=== PATIENT | female | born 1945 | race Caucasian/White ===

== ENCOUNTER → 2016-11-02 | Outpatient (CLI) | payer MEDICARE, BC ==
--- NOTE | 2016-11-02 09:53 | US ---
EXAMINATION TYPE: US st tissue head/neck DATE OF EXAM: 11/02/2016 7:39 AM COMPARISON: NONE CLINICAL HISTORY: R22.0 swelling mass/head/neck. Pt states feeling 2 palpable lumps left posterior ba se of skull x 1 month/ pt states recent history of shingles on scalp At 1st palp at base of skull shows probable lymph node= 0.7 x 0.3 x 0.7 cm/ Nothing visualized at 2 nd palp at base of skull Oval well-circumscribed hypoechoic lesion at level of first palpable abnormality favors benign lymph node. Second site of palpable abnormality shows no worrisome solid or cystic mass or fluid collection on images saved. IMPRESSION: As above, most likely benign process.
== END | disposition home or self-care (01) ==
LOC: RADUSWWP 07:28
PROVIDERS: ATTEND Internal Medicine
DX: R22.1 Localized swelling, mass and lump, neck (principal); Z91.048 Other nonmedicinal substance allergy status; Z91.013 Allergy to seafood
CPT/HCPCS: 76536

== ENCOUNTER → 2016-11-29 | Outpatient (CLI) | payer MEDICARE, BC ==
--- NOTE | 2016-11-29 17:15 | BD ---
EXAMINATION TYPE: MG DEXA axial skeleton. DATE OF EXAM: 11/29/2016 COMPARISON: 2014 CLINICAL HISTORY: post menopausal Height: 5'3 Weight: 139 FRAX RISK QUESTIONS: Alcohol (3 or more units per day): no Family History (Parent hip fracture): no Glucocorticoids (More than 3mos): no (Ex: prednisone, prednisolone, methylprednisolone, dexamethasone, and hydrocortisone). History of Fracture in Adulthood: no Secondary Osteoporosis: 1. Type 1 Diabetes: no 2. Hyperthyroidism: no 3. Menopause before 45: no 4. Malnutrition: no 5. Chronic liver disease: no Rheumatoid Arthritis: no Current Tobacco Use: no RISK FACTORS HISTORY OF: Surgery to Spine/ When: 2014 Postmenopausal woman: MEDICATIONS: Additional Medications: Prilosec, Motrin 600, neuro tin, baby aspirin, allergies, Additional History: thyroidd 3/4 thyroidectomy, hyperactive no cancer EXAM MEASUREMENTS: Bone mineral densitometry was performed using the [employer] System. Bone mineral density about the R hip (g/cm2): 1.061 Bone mineral density about the L hip (g/cm2): 0.982 T Score values are as follows: -----R Neck: 0.2 -----L Neck: -0.4 -----R Total: 0.3 -----L Total: 0.7 Bone mineral density has: Increased 1.0% since study of: 08/26/2014 IMPRESSION: Normal (Values between +1 and -1 indicate normal bone mass). Consider repeating this study in 5 year s or sooner if there is some new clinical indication. Bone density has improved 1% within the bilateral hips from 2014. NOTE: T-SCORE=SD OF THE YOUNG ADULT MEAN.
--- NOTE | 2016-11-30 11:43 | MM ---
Reason for exam: screening (asymptomatic). Last mammogram was performed 1 year and 1 month ago. History: Patient is postmenopausal and history of other cancer. Family history of breast cancer in paternal cousin at age 50. Benign stereotactic core biopsy of the right breast, August 25, 2003. Cyst aspiration of the left breast. Cyst aspiration of the right breast. Core biopsy of the right breast. Excisional biopsy of the left breast. Taking estrogen for 28 years beginning at age 42. Physical Findings: A clinical breast exam by your physician is recommended on an annual basis and results should be correlated with mammographic findings. MG 3D Screening Mammo W/Cad Bilateral CC and MLO view(s) were taken. Prior study comparison: October 23, 2015, bilateral MG 3d screening mammo w/cad. August 26, 2014, bilateral MG screening mammo w CAD. May 20, 2013, bilateral digital screening mammo w/CAD. The breast tissue is heterogeneously dense. This may lower the sensitivity of mammography. Finding: There are vascular, round calcifications in both breasts. Previous mammotome biopsy in the right breast. There is no discrete abnormality. ASSESSMENT: Benign, BI-RAD 2 RECOMMENDATION: Routine screening mammogram of both breasts in 1 year.
== END | disposition home or self-care (01) ==
LOC: RADMAMWWP 08:39
PROVIDERS: ATTEND Obstetrics & Gynecology
DX: Z12.31 Encounter for screening mammogram for malignant neoplasm of breast (principal); N95.1 Menopausal and female climacteric states
CPT/HCPCS: 77080; 77063; G0202

== ENCOUNTER → 2017-03-21 | Outpatient (CLI) | payer MEDICARE, BC | END | disposition home or self-care (01) | LOC: LABWHC1 09:05 | PROVIDERS: ATTEND Internal Medicine | DX: E03.9 Hypothyroidism, unspecified (principal); E55.9 Vitamin D deficiency, unspecified | CPT/HCPCS: 36415; 82306; 82746; 84439; 84443 ==

== ENCOUNTER → 2017-06-05 | Outpatient (CLI) | payer MEDICARE, BC ==
[2017-06-05 09:26] LABS: Basophils % (A) 0 %; CH 33.5; CHCM 31.9; Eosinophils # (A) 0.2 k/uL (0-0.7); Eosinophils % (A) 3 %; HGB 12.5 gm/dL (11.4-16.0); Luc # (Auto) 0.08; Luc % (Auto) 2; Lymphocytes # (A) 0.9 k/uL (1.0-4.8); Lymphocytes % (A) 18 %; MCHC 31.3 g/dL (31.0-37.0); MCV 105.4 fL (80.0-100.0); Macrocytosis Moderate; Monocytes # (A) 0.4 k/uL (0-1.0); Monocytes % (A) 7 %; Neutrophils # (A) 3.6 k/uL (1.3-7.7); Neutrophils % (A) 69 %; RBC 3.79 m/uL (3.80-5.40); RDW 13.9 % (11.5-15.5); WBC 5.2 k/uL (3.8-10.6)
[2017-06-05 09:47] LABS: ALT 44 U/L (9-52); AST 29 U/L (14-36); Alkaline Phosphatase 42 U/L (38-126); Anion Gap 6 mmol/L; Blood Urea Nitrogen 21 mg/dL (7-17); C Reactive Protein <5.0 mg/L (<10.0); Calcium 9.3 mg/dL (8.4-10.2); Carbon Dioxide 28 mmol/L (22-30); Chloride 108 mmol/L (98-107); Cholesterol 196 mg/dL (<200); Creatine Kinase 158 U/L (30-135); Glucose 100 mg/dL (74-99); HDL Cholesterol 85 mg/dL (40-60); Non-African American GFR(MDRD) >60 (>60 ml/min/1.73 sqM); Potassium 4.6 mmol/L (3.5-5.1); Sodium 142 mmol/L (137-145); Total Bilirubin 0.2 mg/dL (0.2-1.3); Total Protein 6.6 g/dL (6.3-8.2); Uric Acid 5.4 mg/dL (3.7-7.4)
[2017-06-05 10:52] LABS: Erythrocyte Sedimentation Rate 20 mm/hr (0-20)
[2017-06-05 17:49] LABS: ANA w/Reflex to Titer NEGATIVE (NEGATIVE)
== END | disposition home or self-care (01) ==
LOC: LABWHC1 09:06
PROVIDERS: ATTEND Internal Medicine
DX: Z00.00 Encounter for general adult medical examination without abnormal findings (principal); E78.5 Hyperlipidemia, unspecified; J44.9 Chronic obstructive pulmonary disease, unspecified; M81.0 Age-related osteoporosis without current pathological fracture; E55.9 Vitamin D deficiency, unspecified; M06.4 Inflammatory polyarthropathy; J45.909 Unspecified asthma, uncomplicated
CPT/HCPCS: 36415; 80053; 80061; 82306; 82550; 83735; 84550; 85025; 85652; 86038; 86140; 86225

== ENCOUNTER → 2017-08-09 | Outpatient (CLI) | payer MEDICARE, BC ==
[2017-08-09 12:41] LABS: Anion Gap 12 mmol/L; Blood Urea Nitrogen 17 mg/dL (7-17); Calcium 10.4 mg/dL (8.4-10.2); Carbon Dioxide 27 mmol/L (22-30); Chloride 101 mmol/L (98-107); Glucose 96 mg/dL (74-99); Magnesium 1.9 mg/dL (1.6-2.3); Potassium 4.3 mmol/L (3.5-5.1); Sodium 140 mmol/L (137-145)
[2017-08-09 19:00] LABS: Progesterone <0.2 ng/mL
== END | disposition home or self-care (01) ==
LOC: LABWHC1 11:42
PROVIDERS: ATTEND Internal Medicine
DX: E87.8 Other disorders of electrolyte and fluid balance, not elsewhere classified (principal); I73.9 Peripheral vascular disease, unspecified; N95.9 Unspecified menopausal and perimenopausal disorder
CPT/HCPCS: 36415; 80048; 82672; 83001; 83002; 83735; 84144; 84146; 84403

== ENCOUNTER → 2017-10-11 | Outpatient (CLI) | payer MEDICARE, BC ==
--- NOTE | 2017-10-11 08:47 | CT ---
EXAMINATION TYPE: CT sinus wo con DATE OF EXAM: 10/11/2017 COMPARISON: NONE HISTORY: Patient complains of chronic heavy sinus drainage, difficulty breathing, and sinus infection unresponsive to treatment. CT DLP: 622 mGycm. Automated Exposure Control for Dose Reduction was Utilized. TECHNIQUE: CT scan of the sinuses is performed without contrast, axial images are obtained, coronal r eformatted images are also reviewed. FINDINGS: The frontal sinuses are aplastic. The maxillary, ethmoid, and sphenoid sinuses are well aer ated. The visualized portions of the mastoid air cells are also well aerated. No middle ear cavity fl uid. External auditory canals are patent. No secretions within the posterior nasopharynx. The left os tiomeatal complex is patent. There is narrowing of the right ostiomeatal complex which appears to hav e slight mucosal thickening in the infundibulum with partial obstruction. There is no significant muc osal hypertrophy of the nasal turbinates. Left middle nasal turbinate lewis bullosa is nonobstructiv e. No Rivera cells are seen. Frontal recesses are patent. The nasal septum is overall midline. Nasal bone and maxillary spine are intact. Orbits and globes are symmetric and unremarkable. Evaluation of intracranial structures are limited given technique. Visua lized portions of the parotids are symmetric. IMPRESSION: 1. Aplastic frontal sinuses. 2. Narrowing of the right ostiomeatal complex with scant amount of mucosal thickening within the infu ndibulum creating partial obstruction. No mucosal thickening within the maxillary, sphenoid or ethmoi d sinuses. 3. Nonobstructive left middle nasal turbinate lewis bullosa.
== END | disposition home or self-care (01) ==
LOC: RADCTMAIN 08:13
PROVIDERS: ATTEND Internal Medicine
DX: J34.89 Other specified disorders of nose and nasal sinuses (principal)
CPT/HCPCS: 70486

== ENCOUNTER → 2017-11-09 | Outpatient (CLI) | payer MEDICARE, BC | END | disposition home or self-care (01) | LOC: LABWHC1 14:16 | PROVIDERS: ATTEND Otolaryngology | DX: J30.89 Other allergic rhinitis (principal) | CPT/HCPCS: 36415 ==

== ENCOUNTER 2017-11-23 10:26 | Day surgery (SDC) | payer MEDICARE, BC ==
[2017-11-17 09:42] VITALS: BMI 24.0
[~2017-11-23 10:26] MED LIST: DEXAMETHASONE SOD PHOSPHATE 10 MG/ML 1 ML VIAL IV ONE; DEXAMETHASONE SOD PHOSPHATE 4 MG/ML 1 ML VIAL IV ONE; FAMOTIDINE 20 MG/2 ML VIAL IV ONE; LACTATED RINGERS 1,000 ML IV SCH; LIDOCAINE 1% 20 ML VIAL (10MG/ML) FOR IV START INTRADERMA PRN; MELOXICAM 7.5 MG TAB PO ONE; MIDAZOLAM 2 MG/2 ML VIAL IV PRN; ONDANSETRON 4 MG/2 ML VIAL IVP ONE; OXYMETAZOLINE 0.05% NASL SPRAY 1 SPRAY BOTTLE NASAL ONE; SCOPOLAMINE 1.5MG/72HR PATCH TRANSDERM ONE; ceFAZolin 1,000 MG in DEXTROSE/WATER 1 50ML.BAG IV ONE
[2017-11-23] MEDS ORDERED: ONDANSETRON 4 MG/2 ML VIAL IVP ONE (11:32)
[2017-11-23] MEDS ORDERED: PROPOFOL 10 MG/ML 20 ML VIAL IV ONE (12:03)
[2017-11-23] MEDS ORDERED: fentaNYL (PF) 50 MCG/ML 2 ML AMP ONE (12:03)
[2017-11-23] MEDS ORDERED: ePHEDrine SULFATE/0.9% NACL/PF 50 MG/5 ML SYRINGE IV ONE (12:03)
[2017-11-23] MEDS ORDERED: DEXAMETHASONE SOD PHOS (MDV) 100 MG/10 ML VIAL ONE ×2 (12:03)
[2017-11-23] MEDS ORDERED: SUCCINYLCHOLINE CHLORIDE 100 MG/5 ML SYR IV ONE (12:03)
[2017-11-23] MEDS ORDERED: MIDAZOLAM 2 MG/2 ML VIAL ONE (12:03)
[2017-11-23] MEDS ORDERED: LIDOCAINE 1% INJ 10MG/ML (20 ML MDV) ONE (12:03)
[2017-11-23] MEDS ORDERED: BUPIVACAINE (PF) 0.5% 30 ML VIAL SQ ONE (12:29)
[2017-11-23] MEDS ORDERED: LIDOCAINE 1%-EPI 1:100,000 20 ML VIAL SQ ONE (12:29)
[2017-11-23] MEDS ORDERED: BACITRACIN 500 UNIT/GM OINT 28.4 GM TUBE TOPICAL ONE (13:02)
[2017-11-23 13:22] VITALS: TEMP 97.7
[2017-11-23] MEDS: HYDROmorphone 0.5 MG/0.5 ML SYRINGE IVP ONE ×2 (13:25→13:35)
--- NOTE | 2017-11-23 13:32 | P.OP ---
Date of Procedure: 11/23/17 Preoperative Diagnosis: Deviated nasal septum Bilateral hypertrophy of inferior nasal turbinates with obstruction Left middle turbinate lewis bullosa with obstruction Postoperative Diagnosis: Same Procedure(s) Performed: Septoplasty Bilateral submucosal resection of the inferior turbinates with compression outfracture and bilateral resection of the left middle turbinate lewis bullosa Anesthesia: ADRIANA Surgeon: Jones Tompkins Estimated Blood Loss (ml): 5 Pathology: other (sinonasal) Condition: stable Disposition: PACU Indications for Procedure: This patient presented to the office with significant nasal obstruction. She has failed medical therapy and has tried multiple different medical options including cortisone nasal sprays antibiotics etc. with no improvement. She has near total nasal obstruction elected this corrected. She was found have a severe deviated nasal septum with large obstructive inferior turbinates and a very large left lewis bullosa which is causing rightward deviation of the septum causing obstruction. Operative Findings: Severe deviated septum to the right with near 100% occlusion. Large left middle turbinate lewis bullosa with large inferior obstructive inferior turbinates. Description of Procedure: This patient was taken to the operative room and placed in the supine position. A general inhalation anesthetic was administered to the patient by the department of anesthesia with a functioning IV line in place. The patient was monitored throughout the entire case by the department of anesthesia. The eyes were taped shut for protection. The patient was placed in a slight reverse Trendelenburg position. The patient had previously utilize Afrin nasal spray preoperatively. The nose was evaluated and the septum lateral nasal wall and inferior turbinates were injected with lidocaine 1% with epinephrine 1 100,000 bilaterally. Approximately 10 minutes were allowed wait for full vasoconstrictive effects to take place. At this point a caudal incision was made over the caudal portion of the left septum down to the mucoperichondrium. A mucoperichondrial flap was elevated on the left side and dissection was carried with use of tunnels posteriorly. We then made a crossover incision through the cartilage to the contralateral side and for the mucoperichondrial flap development was performed to the extent of visualization on the contralateral side. After the cartilage was freed with use of several crosshatching incisions and removal of some redundant strips of septal cartilage, the septum was straightened and placed back in the midline. The septum was sutured fixated to the ovarian groove. Excellent straightening occurred and the septum was visibly straight. Incision was closed with a 40 rapid Vicryl. We utilized a running nonlocking fashion for closure of the incision. A quilting stitch was used to reapproximate the septal flaps with use of a 40 rapid Vicryl. We also evaluated a very large left lewis bullosa on the left side of the middle turbinate. This very large left lewis bullosa is causing much of the right septal deviation and we resected the lateral portion with use of a 15 blade straight boss and up-biting boss. Complete resection of the lateral portion of this middle turbinate was accomplished without incident. The patient tolerated this well. Intranasal splints were inserted and fixated at the end of the case. We utilized Sifuentes nasal splints. There will be removed and the patient returns to the office. Attention was then paid to the inferior turbinates. The bilateral inferior turbinates were hypertrophic and obstructive. We entered the anterior portion of the inferior turbinates with use of a microdebrider. We remove bone and submucosal elements with use of a microdebrider bilaterally. The inferior turbinates underwent a submucosal resection with removal of submucosal tissue and bone. We obtained a much better and normal in size for breathing. The inferior turbinates were then outfractured and compressed with a Intooes nasal elevator. Excellent airway was obtained and was symmetric bilaterally. No bleeding was encountered.
[2017-11-23 14:27] VITALS: RESP 18
[2017-11-23 15:36] VITALS: BP 124/73; PULSE 75
== END 2017-11-23 16:05 | disposition home or self-care (01) ==
LOC: OR 10:26
PROVIDERS: ATTEND Otolaryngology
DX: J34.2 Deviated nasal septum (principal); J34.3 Hypertrophy of nasal turbinates; J32.9 Chronic sinusitis, unspecified; J34.89 Other specified disorders of nose and nasal sinuses; J30.1 Allergic rhinitis due to pollen; J30.89 Other allergic rhinitis; I10 Essential (primary) hypertension; E78.5 Hyperlipidemia, unspecified; K21.9 Gastro-esophageal reflux disease without esophagitis; Z91.013 Allergy to seafood; Z91.018 Allergy to other foods; Z91.09 Other allergy status, other than to drugs and biological substances; Z79.82 Long term (current) use of aspirin; Z79.1 Long term (current) use of non-steroidal anti-inflammatories (NSAID); Z79.890 Hormone replacement therapy; Z79.52 Long term (current) use of systemic steroids; Z79.899 Other long term (current) drug therapy; Z87.891 Personal history of nicotine dependence; Z82.49 Family history of ischemic heart disease and other diseases of the circulatory system
CPT/HCPCS: 30520; 30140; 30999; 88305; 88300; J2250; J1100 ×2; J2405; J2001; J3010; J0690; J0330; J2704; J1170

== ENCOUNTER 2018-01-18 20:46 | Emergency (ER) | payer MEDICARE, BC ==
[2018-01-18 20:54] VITALS: BP 148/86; PULSE 72; RESP 18; TEMP 98.5
--- NOTE | 2018-01-18 21:30 | ED ---
Lower Extremity Injury HPI - General Chief Complaint: Extremity Injury, Lower Stated Complaint: Ankle wound Time Seen by Provider: 01/18/18 21:01 Source: patient, RN notes reviewed, old records reviewed Mode of arrival: wheelchair Limitations: no limitations - History of Present Illness Initial Comments: This is a 72 year old female with CC of R ankle wound. She reports that it occured 2 weeks ago, and it was healing well. However one week ago, she reopened the area up while at the gym. Today she was working at a [employer], and was doing well. This afternoon she complains with pain with ambulation over mich wound area. She denies history of resistent skin infection. She does state she is not diabetic. - Related Data Home Medications Medication Instructions Recorded Confirmed Allergy Shots (Unknown Dose) 1 dose INJ Q14D 11/17/17 11/23/17 Aspirin [Adult Low Dose Aspirin EC] 81 mg PO DAILY 11/17/17 11/23/17 Cetirizine HCl [Zyrtec] 10 mg PO HS 11/17/17 11/23/17 Cholecalciferol [Vitamin D3] 1,000 unit PO DAILY 11/17/17 11/23/17 Cyanocobalamin (Vitamin B-12) 1,000 mcg PO DAILY 11/17/17 11/23/17 [Vitamin B-12] Escitalopram Oxalate [Lexapro] 10 mg PO HS 11/17/17 11/23/17 Estrogen,Nancy/Me-Testosterone 1 each PO DAILY 11/17/17 11/23/17 [Estrogen-Methyltestos F.s. Tab] Fish Oil/Dha/Epa [Fish Oil 1,200 1 each PO BID 11/17/17 11/23/17 mg Fish Oil] Folic Acid 0.4 mg PO DAILY 11/17/17 11/23/17 Ibuprofen [Motrin] 800 mg PO TID PRN 11/17/17 11/23/17 Montelukast [Singulair] 10 mg PO DAILY 11/17/17 11/23/17 Omeprazole [PriLOSEC] 40 mg PO DAILY 11/17/17 11/23/17 Simvastatin [Zocor] 20 mg PO HS 11/17/17 11/23/17 cloNIDine HCL [Catapres] 0.1 mg PO BID 11/17/17 11/23/17 Previous Rx's Medication Instructions Recorded Amoxicillin/Potassium Clav 1 each PO Q12HR #20 tab 11/23/17 [Augmentin 875-125 Tablet] HYDROcodone/APAP 5-325MG [[place] 1 - 2 tab PO Q4-6H PRN 3 Days #36 11/23/17 5-325] tab Meloxicam [Mobic] 15 mg PO DAILY #14 tab 11/23/17 predniSONE 20 mg PO DIRECTED #5 tab 11/23/17 Cephalexin [Keflex] 500 mg PO Q6H #40 cap 01/18/18 Mupirocin Calcium [Bactroban 2% 1 applic TOPICAL TID #60 gm 01/18/18 Cream] Allergies Allergy/AdvReac Type Severity Reaction Status Date / Time ciprofloxacin Allergy Rash/Hives Verified 01/18/18 20:54 grass pollen Allergy Dyspnea Verified 01/18/18 20:54 shellfish derived [Shellfish] Allergy Nausea & Verified 01/18/18 20:54 Vomiting tree and shrub pollen Allergy Dyspnea Verified 01/18/18 20:54 Review of Systems ROS Statement: Those systems with pertinent positive or pertinent negative responses have been documented in the HPI. ROS Other: All systems not noted in ROS Statement are negative. Past Medical History Past Medical History: GERD/Reflux, Hyperlipidemia, Hypertension, Osteoarthritis (OA) History of Any Multi-Drug Resistant Organisms: None Reported Past Surgical History: Adenoidectomy, Back Surgery, Bowel Resection, Cholecystectomy, Hysterectomy, Orthopedic Surgery, Tonsillectomy Additional Past Surgical History / Comment(s): partial thyroidectomy,rt foot plate and screws, redundant sigmoid volvulus and mobile rt colon-with resection , rt knee arthroscopy Past Anesthesia/Blood Transfusion Reactions: Motion Sickness, Postoperative Nausea & Vomiting (PONV) Past Psychological History: Anxiety Smoking Status: Former smoker Past Alcohol Use History: Occasional Past Drug Use History: None Reported - Past Family History Father Family Medical History: Cancer, Rheumatoid Arthritis (RA) Additional Family Medical History / Comment(s): lung cancer Mother Family Medical History: Osteoarthritis (OA) General Exam - General Exam Comments Initial Comments: This is a 72 year old female. No acute distress Limitations: no limitations General appearance: alert, in no apparent distress Head exam: Present: atraumatic, normocephalic, normal inspection Eye exam: Present: normal appearance, PERRL, EOMI. Absent: scleral icterus, conjunctival injection, periorbital swelling ENT exam: Present: normal exam, mucous membranes moist Neck exam: Present: normal inspection. Absent: tenderness, meningismus, lymphadenopathy Respiratory exam: Present: normal lung sounds bilaterally. Absent: respiratory distress, wheezes, rales, rhonchi, stridor Right Upper Leg exam: Present: normal inspection, full ROM Lower Leg exam: Present: normal inspection, full ROM Ankle exam: Present: full ROM, abrasion (2cm circular abrasion with yellow purlent drainage. No skin to cover over. This is over medial malleolus. ). Absent: normal inspection (2c) Foot/Toe exam: Present: normal inspection, full ROM Neurovascular tendon exam: Present: no vascular compromise Gait: observed and limited by pain Back exam: Present: normal inspection Psychiatric exam: Present: normal affect, normal mood Skin exam: Present: warm, dry, intact, normal color. Absent: rash Course Vital Signs 01/18/18 20:50 Temperature 98.5 F Pulse Rate 72 Respiratory 18 Rate Blood Pressure 148/86 O2 Sat by Pulse 99 Oximetry Medical Decision Making - Medical Decision Making 72 year old with one week of nonhealing wound over R medial malleolus. This was started 2 weeks ago, and reopened last week while at the gym. She has normal sensation and full ROM of foot. She is tender over the medial malleolus near wound. I did obtain a wound culture. Normal xray at this time. I discussed she needs to keep the area covered to prevent more opening and damagoe to surrounding skin. Will start on keflex, pending wound culture. Discussed she should follow up with PCP for monitoring and may need to be managed at wound care. - Radiology Data Radiology results: report reviewed Negative lumbar spine exam. Negative right ankle exam. Disposition Clinical Impression: Ankle wound Disposition: HOME SELF-CARE Condition: Good Instructions: Acute Wound Care (ED), Chronic Wound Care (ED) Additional Instructions: Patient has follow-up with primary care provider within the next week. Apply the antibiotic ointment and take antibiotics as prescribed. Patient should wear shoes and keep the area covered. Prescriptions: Cephalexin [Keflex] 500 mg PO Q6H #40 cap Mupirocin Calcium [Bactroban 2% Cream] 1 applic TOPICAL TID #60 gm Is patient prescribed a controlled substance at d/c from ED?: No Referrals: Vicente De Leon MD [Primary Care Provider] - 1-2 days Time of Disposition: 21:48
--- NOTE | 2018-01-18 21:45 | XR ---
EXAMINATION TYPE: XR ankle complete RT DATE OF EXAM: 01/18/2018 COMPARISON: NONE HISTORY: Ankle pain TECHNIQUE: 3 views FINDINGS: I see no fracture nor dislocation. Ankle mortise is anatomic. IMPRESSION: Negative right ankle exam.
== END 2018-01-18 22:05 | disposition home or self-care (01) ==
LOC: EC 20:46
DX: S91.001A Unspecified open wound, right ankle, initial encounter (principal); K21.9 Gastro-esophageal reflux disease without esophagitis; E78.5 Hyperlipidemia, unspecified; I10 Essential (primary) hypertension; M19.90 Unspecified osteoarthritis, unspecified site; F41.9 Anxiety disorder, unspecified; Z87.891 Personal history of nicotine dependence; Z98.890 Other specified postprocedural states; Z79.82 Long term (current) use of aspirin; Z79.899 Other long term (current) drug therapy; Z88.1 Allergy status to other antibiotic agents; Z91.013 Allergy to seafood; Z91.048 Other nonmedicinal substance allergy status; W20.8XXA Other cause of strike by thrown, projected or falling object, initial encounter
CPT/HCPCS: 87070; 87205; 99284

== ENCOUNTER → 2018-01-18 | Outpatient (CLI) | payer MEDICARE, BC ==
--- NOTE | 2018-01-22 08:53 | MM ---
Reason for exam: screening (asymptomatic). Last mammogram was performed 1 year and 2 months ago. History: Patient is postmenopausal and history of other cancer. Family history of breast cancer in paternal cousin at age 50. Benign stereotactic core biopsy of the right breast, August 25, 2003. Cyst aspiration of the left breast. Cyst aspiration of the right breast. Core biopsy of the right breast. Excisional biopsy of the left breast. Taking estrogen for 30 years beginning at age 42. Physical Findings: A clinical breast exam by your physician is recommended on an annual basis and results should be correlated with mammographic findings. MG 3D Screening Mammo W/Cad Bilateral CC and MLO view(s) were taken. Prior study comparison: November 29, 2016, bilateral MG 3d screening mammo w/cad. October 23, 2015, bilateral MG 3d screening mammo w/cad. There are scattered fibroglandular densities. Previous mammotome biopsy in the right breast. No significant changes when compared with prior studies. ASSESSMENT: Benign, BI-RAD 2 RECOMMENDATION: Routine screening mammogram of both breasts in 1 year.
== END | disposition home or self-care (01) ==
LOC: RADMAMWWP 07:38
PROVIDERS: ATTEND Obstetrics & Gynecology
DX: Z12.31 Encounter for screening mammogram for malignant neoplasm of breast (principal)
CPT/HCPCS: 77063; 77067

== ENCOUNTER → 2018-06-26 | Outpatient (CLI) | payer MEDICARE, BC ==
[2018-06-26 09:47] LABS: Basophils % (A) 1 %; Eosinophils # (A) 0.2 k/uL (0-0.7); Eosinophils % (A) 3 %; HCT 39.4 % (34.0-46.0); HGB 13.5 gm/dL (11.4-16.0); Lymphocytes # (A) 1.5 k/uL (1.0-4.8); Lymphocytes % (A) 26 %; MCH 34.7 pg (25.0-35.0); MCHC 34.2 g/dL (31.0-37.0); MCV 101.4 fL (80.0-100.0); Macrocytosis Slight; Mean Platelet Volume 7.7; Monocytes # (A) 0.4 k/uL (0-1.0); Monocytes % (A) 6 %; Neutrophils # (A) 3.6 k/uL (1.3-7.7); Neutrophils % (A) 62 %; Platelet Count 284 k/uL (150-450); RBC 3.89 m/uL (3.80-5.40); RDW 13.2 % (11.5-15.5); WBC 5.8 k/uL (3.8-10.6)
[2018-06-26 12:03] LABS: Erythrocyte Sedimentation Rate 14 mm/hr (0-20)
[2018-06-26 16:26] LABS: Vitamin D 25 Hydroxy 33.3 ng/mL (30.0-100.0)
[2018-06-26 16:50] LABS: Hepatitis A Antibody IgM Non-Reactive (Non-Reactive); Hepatitis B Core IgM Non-Reactive (Non-Reactive)
[2018-06-26 16:58] LABS: ALT 17 U/L (8-44); AST 23 U/L (13-35); Albumin/Globulin Ratio 2.28 (1.20-2.10); Alkaline Phosphatase 36 U/L (41-126); C Reactive Protein <0.4 mg/dL (0.0-0.8); Calcium 9.2 mg/dL (8.7-10.3); Carbon Dioxide 27.5 mmol/L (21.6-31.8); Chloride 106 mmol/L (96-109); Cholesterol 181 mg/dL (0-200); Creatine Kinase 82 U/L (26-186); Globulin 1.8 g/dL (1.6-3.3); Glucose 83 mg/dL (70-110); LDL Cholesterol,Calculated 96.6 mg/dL (0.0-131.0); Potassium 4.1 mmol/L (3.5-5.5); Sodium 139 mmol/L (135-145); Total Bilirubin 0.5 mg/dL (0.3-1.2); Total Protein 5.9 g/dL (6.2-8.2)
[2018-06-26 18:21] LABS: Hemoglobin A1C 5.4 % (4.0-6.0)
== END | disposition home or self-care (01) ==
LOC: LABWHC1 09:06
PROVIDERS: ATTEND Internal Medicine
DX: D64.9 Anemia, unspecified (principal); E87.8 Other disorders of electrolyte and fluid balance, not elsewhere classified; E78.5 Hyperlipidemia, unspecified; I10 Essential (primary) hypertension; E55.9 Vitamin D deficiency, unspecified; R73.9 Hyperglycemia, unspecified; Z86.19 Personal history of other infectious and parasitic diseases
CPT/HCPCS: 36415; 80053; 80061; 80074; 82306; 82550; 83036; 83735; 84439; 84443; 85025; 85652; 86140

== ENCOUNTER → 2018-07-27 | Outpatient (CLI) | payer MEDICARE, BC ==
[2018-07-27 19:17] LABS: Thyroid Peroxidase Antibodies 1165.9 U/mL (0.0-60.0)
== END | disposition home or self-care (01) ==
LOC: LABWHC1 12:21
PROVIDERS: ATTEND Internal Medicine
DX: E03.9 Hypothyroidism, unspecified (principal)
CPT/HCPCS: 36415; 84439; 84443; 86376; 86800

== ENCOUNTER → 2019-02-15 | Outpatient (CLI) | payer MEDICARE, BC ==
--- NOTE | 2019-02-20 09:10 | MM ---
Reason for exam: screening (asymptomatic). Last mammogram was performed 1 year and 1 month ago. History: Patient is postmenopausal and history of other cancer. Family history of breast cancer in paternal cousin at age 50. Benign stereotactic core biopsy of the right breast, August 25, 2003. Cyst aspiration of the left breast. Cyst aspiration of the right breast. Core biopsy of the right breast. Excisional biopsy of the left breast. Taking estrogen for 30 years beginning at age 42. Physical Findings: A clinical breast exam by your physician is recommended on an annual basis and results should be correlated with mammographic findings. MG 3D Screening Mammo W/Cad Bilateral CC and MLO view(s) were taken. Prior study comparison: January 18, 2018, bilateral MG 3d screening mammo w/cad. November 29, 2016, bilateral MG 3d screening mammo w/cad. The breast tissue is heterogeneously dense. This may lower the sensitivity of mammography. Previous mammotome biopsy in the right breast. No significant changes when compared with prior studies. ASSESSMENT: Negative, BI-RAD 1 RECOMMENDATION: Routine screening mammogram of both breasts in 1 year.
== END | disposition home or self-care (01) ==
LOC: RADMAMWWP 12:51
PROVIDERS: ATTEND Obstetrics & Gynecology
DX: Z12.31 Encounter for screening mammogram for malignant neoplasm of breast (principal); Z80.3 Family history of malignant neoplasm of breast
CPT/HCPCS: 77063; 77067

== ENCOUNTER → 2019-03-06 | Outpatient (CLI) | payer MEDICARE, BC ==
--- NOTE | 2019-03-06 16:04 | US ---
EXAMINATION TYPE: US transvaginal DATE OF EXAM: 03/06/2019 COMPARISON: NONE CLINICAL HISTORY: R10.2 Pelvic Pain. left pelvic pain and discharge x couple months, 2, para 2, history of partial hysterectomy 30 years ago TECHNIQUE: Transvaginal exam per ordering physician. Date of LMP: 30 years ago EXAM MEASUREMENTS: Uterus: surgically absent Endometrial Stripe: surgically absent Right Ovary: not seen Left Ovary: not seen 1. Uterus: surgically absent 2. Endometrium: surgically absent 3. Right Ovary: not seen due to overlying bowel gas 4. Left Ovary: not seen due to overlying bowel gas 5. Bilateral Adnexa: wnl 6. Posterior cul-de-sac: wnl Urinary bladder is sonolucent as visualized. IMPRESSION: 1. Normal post hysterectomy transvaginal pelvic ultrasound. No suspicious ultrasound abnormalities ev ident
== END | disposition home or self-care (01) ==
LOC: RADUSWWP 13:29
PROVIDERS: ATTEND Obstetrics & Gynecology
DX: R10.2 Pelvic and perineal pain (principal); Z90.710 Acquired absence of both cervix and uterus
CPT/HCPCS: 76830

== ENCOUNTER → 2019-05-30 | Outpatient (CLI) | payer MEDICARE, BC | END | disposition home or self-care (01) | LOC: LABWHC1 10:37 | PROVIDERS: ATTEND Internal Medicine | DX: E03.9 Hypothyroidism, unspecified (principal) | CPT/HCPCS: 36415; 84439; 84443 ==

== ENCOUNTER → 2019-07-11 | Outpatient (CLI) | payer MEDICARE, BC ==
[2019-07-11 09:14] LABS: Basophils % (A) 1 %; Eosinophils # (A) 0.1 k/uL (0-0.7); Eosinophils % (A) 1 %; HCT 40.5 % (34.0-46.0); HGB 13.5 gm/dL (11.4-16.0); Lymphocytes # (A) 1.3 k/uL (1.0-4.8); Lymphocytes % (A) 24 %; MCH 34.1 pg (25.0-35.0); MCHC 33.2 g/dL (31.0-37.0); MCV 102.5 fL (80.0-100.0); Macrocytosis Slight; Mean Platelet Volume 7.6; Monocytes # (A) 0.3 k/uL (0-1.0); Monocytes % (A) 6 %; Neutrophils # (A) 3.7 k/uL (1.3-7.7); Neutrophils % (A) 66 %; Platelet Count 205 k/uL (150-450); RBC 3.95 m/uL (3.80-5.40); RDW 13.4 % (11.5-15.5); WBC 5.6 k/uL (3.8-10.6)
[2019-07-11 17:08] LABS: African American GFR (CKD) 83.6 (60.0-200.0); Albumin 4.4 g/dL (3.80-4.90); Albumin/Globulin Ratio 2.59 (1.60-3.17); BUN/Creat Ratio 22.5 Ratio (12.00-20.00); Calcium 9.1 mg/dL (8.7-10.3); Globulin 1.7 g/dL (1.6-3.3); Non-African American GFR(CKD) 72.1 (60.0-200.0); Potassium 4.4 mmol/L (3.5-5.5); Total Bilirubin 0.5 mg/dL (0.2-1.2); Total Protein 6.1 g/dL (6.2-8.2)
== END | disposition home or self-care (01) ==
LOC: LABWHC1 08:55
PROVIDERS: ATTEND Internal Medicine
DX: D64.9 Anemia, unspecified (principal); I10 Essential (primary) hypertension; E78.5 Hyperlipidemia, unspecified; E03.9 Hypothyroidism, unspecified
CPT/HCPCS: 36415; 80053; 82272; 85025; 87338

== ENCOUNTER → 2019-12-06 | Outpatient (CLI) | payer MEDICARE, BC ==
--- NOTE | 2019-12-06 11:20 | XR ---
EXAMINATION TYPE: XR hand complete bilateral DATE OF EXAM: 12/06/2019 CLINICAL HISTORY: pain TECHNIQUE: Frontal, lateral and oblique images of the bilateral hands are obtained. COMPARISON: None. FINDINGS: Erosive arthropathy noted to involve PIP and DIP joints throughout the bilateral hands with relative sparing of the PIP fourth digit bilaterally. Various deformities are noted. No soft tissue calcifications. No evidence for acute fracture. Soft tissue swelling seen. IMPRESSION: Findings compatible with bilateral rheumatoid arthritis. ICD 10 NO FRACTURE, INITIAL EVALUATION
[2019-12-06 18:13] LABS: Anti-DNA, DS unit <1.0 IU/mL; Cyclic Citrull Pep IgG Unit <0.5 U/mL; Cyclic Citrullinated Pep IgG NEGATIVE (NEGATIVE); DNA Double-Stranded NEGATIVE (NEGATIVE)
[2019-12-09 14:43] LABS: C-ANCA <1:20 Titer (<1:20)
== END | disposition home or self-care (01) ==
LOC: LABWHC1 09:45
PROVIDERS: ATTEND Internal Medicine
DX: M81.0 Age-related osteoporosis without current pathological fracture (principal); M06.9 Rheumatoid arthritis, unspecified; D89.89 Other specified disorders involving the immune mechanism, not elsewhere classified; H04.129 Dry eye syndrome of unspecified lacrimal gland
CPT/HCPCS: 36415; 85652; 86038; 86200; 86225; 86235; 86255; 86431

== ENCOUNTER → 2020-02-18 | Outpatient (CLI) | payer MEDICARE, BC ==
--- NOTE | 2020-02-19 10:10 | MM ---
Reason for exam: screening (asymptomatic). Last mammogram was performed 1 year ago. History: Patient is postmenopausal and history of other cancer. Family history of breast cancer in paternal cousin at age 50. Benign stereotactic core biopsy of the right breast, August 25, 2003. Cyst aspiration of the left breast. Cyst aspiration of the right breast. Core biopsy of the right breast. Excisional biopsy of the left breast. Taking estrogen for 30 years beginning at age 42. Physical Findings: A clinical breast exam by your physician is recommended on an annual basis and results should be correlated with mammographic findings. MG 3D Screening Mammo W/Cad Bilateral CC and MLO view(s) were taken. Prior study comparison: February 15, 2019, bilateral MG 3d screening mammo w/cad. January 18, 2018, bilateral MG 3d screening mammo w/cad. The breast tissue is heterogeneously dense. This may lower the sensitivity of mammography. Stable benign calcifications. There is chronic nodularity in the left breast. No significant changes when compared with prior studies. ASSESSMENT: Benign, BI-RAD 2 RECOMMENDATION: Routine screening mammogram of both breasts in 1 year.
== END | disposition home or self-care (01) ==
LOC: RADMAMWWP 07:36
PROVIDERS: ATTEND Obstetrics & Gynecology
DX: Z12.31 Encounter for screening mammogram for malignant neoplasm of breast (principal)
CPT/HCPCS: 77063; 77067

== ENCOUNTER → 2020-06-08 | Outpatient (CLI) | payer MEDICARE, BC ==
[2020-06-08 14:50] LABS: Basophils % (A) 0 %; Eosinophils # (A) 0.2 k/uL (0-0.7); Eosinophils % (A) 3 %; HCT 37.6 % (34.0-46.0); HGB 12.7 gm/dL (11.4-16.0); Lymphocytes % (A) 17 %; MCH 34.2 pg (25.0-35.0); MCHC 33.8 g/dL (31.0-37.0); MCV 101.1 fL (80.0-100.0); Mean Platelet Volume 7.6; Monocytes # (A) 0.3 k/uL (0-1.0); Monocytes % (A) 5 %; Neutrophils # (A) 4.3 k/uL (1.3-7.7); Neutrophils % (A) 74 %; Platelet Count 228 k/uL (150-450); RBC 3.72 m/uL (3.80-5.40); RDW 12.8 % (11.5-15.5); WBC 5.9 k/uL (3.8-10.6)
[2020-06-08 19:16] LABS: Anion Gap 5.2 mmol/L (4.00-12.00); BUN/Creat Ratio 13.33 Ratio (12.00-20.00); Carbon Dioxide 26.8 mmol/L (21.6-31.8); Non-African American GFR(CKD) 62.1 (60.0-200.0)
== END | disposition home or self-care (01) ==
LOC: LABWHC1 13:19
PROVIDERS: ATTEND Internal Medicine
DX: D64.9 Anemia, unspecified (principal); M19.90 Unspecified osteoarthritis, unspecified site; T50.905A Adverse effect of unspecified drugs, medicaments and biological substances, initial encounter
CPT/HCPCS: 36415; 80048; 84450; 84460; 85025

== ENCOUNTER 2020-07-15 13:38 | Inpatient (IN) | payer MEDICARE, BC ==
[2020-07-15 11:38] LABS: HCT 42.7 % (34.0-46.0); HGB 14.5 gm/dL (11.4-16.0); MCH 33.7 pg (25.0-35.0); MCV 99.1 fL (80.0-100.0); Mean Platelet Volume 8.1; Platelet Count 266 k/uL (150-450); RBC 4.31 m/uL (3.80-5.40); RDW 12.8 % (11.5-15.5); WBC 9.1 k/uL (3.8-10.6)
[2020-07-15 11:40] LABS: Appearance,Urine Cloudy (Clear); Bilirubin,Urine Negative (Negative); Blood,Urine Negative (Negative); Color,Urine Yellow; Glucose,Urine (UA) Negative (Negative); Hyaline Casts,Urine 1 /lpf (0-2); Ketones,Urine Negative (Negative); Leukocyte Esterase,Urine Negative (Negative); Mucus,Urine Occasional /hpf; Nitrite,Urine Negative (Negative); Protein,Urine 1+ (Negative); RBC,Urine 1 /hpf (0-5); Squamous Epithelial Cell,Urine 9 /hpf (0-4); Urobilinogen,Urine <2.0 mg/dL (<2.0); WBC,Urine 1 /hpf (0-5)
[2020-07-15 11:45] LABS: Albumin 4.7 g/dL (3.5-5.0); Potassium 4.3 mmol/L (3.5-5.1); Total Bilirubin 0.5 mg/dL (0.2-1.3); Total Protein 7.6 g/dL (6.3-8.2)
[2020-07-15 12:52] LABS: Erythrocyte Sedimentation Rate 18 mm/hr (0-20)
--- NOTE | 2020-07-15 13:14 | CT ---
EXAMINATION TYPE: CT abdomen pelvis w con DATE OF EXAM: 07/15/2020 HISTORY: LLQ pain, Change in bowel habits, Nausea, vomiting, diarrhea. CT DLP: 857mGycm Automated Exposure Control for Dose Reduction was Utilized. CONTRAST: CT scan of the abdomen and pelvis is performed with oral and with IV Contrast, patient injected with 100 ml mL of Isovue 300. COMPARISON: None. FINDINGS: LUNG BASES: Small degree of linear scarring and/or atelectasis in the bases. LIVER/GB: Cholecystectomy clips. PANCREAS: No significant abnormality is seen. SPLEEN: No significant abnormality is seen. ADRENALS: No significant abnormality is seen. KIDNEYS: No significant abnormality is seen. BOWEL: Small sliding hiatal hernia. Contrast reaches jejunal loops in the left abdomen. Mildly disten ded stomach. There is prominent contrast filled jejunal loops in the left abdomen with air-fluid leve ls. There is transition to fecal and fluid filled small bowel loops in the lower abdomen and pelvis w ith air-fluid levels. Transition point is in the distal ileum without obvious mass or stricture or co josé image 43. Fecal prominent small bowel loops noted proximal to this. Small bowel loops are dilat ed up to 3.4 cm. UTERUS/ADNEXA: Uterus is surgically absent. LYMPH NODES: No greater than 1cm abdominal or pelvic lymph nodes are appreciated. OSSEOUS STRUCTURES: Underlying distal convex scoliosis centered at L1-L2 level. Loss of normal lumbar lordosis. Surgical change posteriorly lower lumbar spine. Multilevel spondylolisthesis and disc spac e narrowing in the lumbar spine. Moderate to severe axial joint space loss with mild acetabular spurr ing in both hips. OTHER: Moderate mixed plaque abdominal aorta extends into branch vessels. Tiny fat-containing umbilic al hernia. IMPRESSION: CT findings consistent with a partial distal small bowel obstruction, consider underlying adhesions, transition point identified in the right pelvis.
[2020-07-15] MEDS ORDERED: ONDANSETRON 4 MG/2 ML VIAL IVP PRN (14:08)
[2020-07-15] MEDS ORDERED: MORPHINE SULFATE 4 MG/ML SYRINGE IV PRN (14:08)
[2020-07-15] MEDS ORDERED: NALOXONE 0.4 MG/ML 1 ML VIAL IV PRN (14:08)
--- NOTE | 2020-07-15 14:08 | ED ---
Abdominal Pain HPI - General Source: patient, family, RN notes reviewed Mode of arrival: wheelchair Limitations: no limitations <Niraj Figueroa - Last Filed: 07/15/20 14:03> <Otto Uriostegui - Last Filed: 07/15/20 15:05> - General Chief Complaint: Abdominal Pain Stated Complaint: abd pain Time Seen by Provider: 07/15/20 13:49 - History of Present Illness Initial Comments: 75-year-old female presents emergency Department with chief complaint of abdominal pain. Patient states the pain started last night did see PCP this morning in which she is sent for lab work and CT. Patient states that she has been vomiting throughout denies still severe nausea and pain in her upper abdomen. Patient states that she had surgery when she was younger for redone of bowel in which she had bowel resection. Patient states she has no chest pain or shortness of breath at this time. (Niraj Figueroa) - Related Data Home Medications Medication Instructions Recorded Confirmed Escitalopram Oxalate [Lexapro] 10 mg PO HS 11/17/17 07/15/20 Montelukast [Singulair] 10 mg PO DAILY 11/17/17 07/15/20 Omeprazole [PriLOSEC] 40 mg PO DAILY 11/17/17 07/15/20 Simvastatin [Zocor] 20 mg PO HS 11/17/17 07/15/20 cloNIDine HCL [Catapres] 0.1 mg PO HS 11/17/17 07/15/20 Gabapentin [Neurontin] 300 mg PO BID PRN 08/27/18 07/15/20 Ibuprofen/Diphenhydramine HCl 1 cap PO HS 08/27/18 07/15/20 [Advil Pm Liqui-Gels] Cholecalciferol [Vitamin D3 (25 100 mcg PO DAILY 07/15/20 07/15/20 Mcg = 1000 Iu)] Estrogen,Nancy/Me-Testosterone 1 tab PO DAILY 07/15/20 07/15/20 [Eemt Hs 0.625-1.25 mg Tablet] Fish Oil/Dha/Epa [Fish Oil 1,200 1 cap PO BID 07/15/20 07/15/20 mg Fish Oil] Folic Acid 0.8 mg PO DAILY 07/15/20 07/15/20 Hydroxychloroquine Sulfate 300 mg PO HS 07/15/20 07/15/20 [Plaquenil] Levothyroxine Sodium 25 mcg PO DAILY 07/15/20 07/15/20 Meloxicam [Mobic] 15 mg PO DAILY 07/15/20 07/15/20 SUMAtriptan SUCCINATE [Imitrex] 25 mg PO BID PRN 07/15/20 07/15/20 Turmeric Root Extract [Turmeric] 1,000 mg PO DAILY 07/15/20 07/15/20 amLODIPine [Norvasc] 2.5 mg PO HS 07/15/20 07/15/20 Allergies Allergy/AdvReac Type Severity Reaction Status Date / Time ciprofloxacin Allergy Rash/Hives Verified 07/15/20 14:48 grass pollen Allergy Dyspnea Verified 07/15/20 14:48 tree and shrub pollen Allergy Dyspnea Verified 07/15/20 14:48 shellfish derived [Shellfish] AdvReac Nausea & Verified 07/15/20 14:48 Vomiting Review of Systems ROS Other: All systems not noted in ROS Statement are negative. <Niraj Figueroa - Last Filed: 07/15/20 14:03> ROS Other: All systems not noted in ROS Statement are negative. <Otto Uriostegui - Last Filed: 07/15/20 15:05> ROS Statement: Those systems with pertinent positive or pertinent negative responses have been documented in the HPI. Past Medical History Past Medical History: GERD/Reflux, Hyperlipidemia, Hypertension, Osteoarthritis (OA) History of Any Multi-Drug Resistant Organisms: None Reported Past Surgical History: Adenoidectomy, Appendectomy, Back Surgery, Bowel Resection, Cholecystectomy, Hysterectomy, Orthopedic Surgery, Tonsillectomy Additional Past Surgical History / Comment(s): partial thyroidectomy,rt foot plate and screws, redundant sigmoid volvulus and mobile rt colon-with resection, rt knee arthroscopy Past Anesthesia/Blood Transfusion Reactions: Motion Sickness, Postoperative Nausea & Vomiting (PONV) Past Psychological History: Anxiety Smoking Status: Never smoker Past Alcohol Use History: Occasional Past Drug Use History: None Reported - Past Family History Father Family Medical History: Cancer, Rheumatoid Arthritis (RA) Additional Family Medical History / Comment(s): lung cancer Mother Family Medical History: Osteoarthritis (OA) <Niraj Figueroa - Last Filed: 07/15/20 14:03> General Exam Limitations: no limitations General appearance: alert, in no apparent distress Head exam: Present: atraumatic, normocephalic, normal inspection Neck exam: Present: normal inspection. Absent: tenderness, meningismus, lymphadenopathy Respiratory exam: Present: normal lung sounds bilaterally. Absent: respiratory distress, wheezes, rales, rhonchi, stridor Cardiovascular Exam: Present: regular rate, normal rhythm, normal heart sounds. Absent: systolic murmur, diastolic murmur, rubs, gallop, clicks GI/Abdominal exam: Present: soft, tenderness, normal bowel sounds. Absent: distended, guarding, rebound, rigid Neurological exam: Present: alert, oriented X3 <Niraj Figueroa - Last Filed: 07/15/20 14:03> Course Vital Signs 07/15/20 07/15/20 13:45 14:57 Temperature 98.5 F 98 F Pulse Rate 83 73 Respiratory 16 18 Rate Blood Pressure 145/75 155/75 O2 Sat by Pulse 100 98 Oximetry Medical Decision Making - Lab Data Result diagrams: 07/15/20 11:00 07/15/20 11:00 <Niraj Figueroa - Last Filed: 07/15/20 14:03> - Lab Data Result diagrams: 07/15/20 11:00 07/15/20 11:00 <Otto Uriostegui - Last Filed: 07/15/20 15:05> - Medical Decision Making 75-year-old female presented from CAT scan patient has partial small bowel obstruction. Patient will be admitted with consult to surgery. NG tube was placed. (Niraj Figueroa) Sexual female with small bowel obstruction with transition point. I discussed case with the admitting physician as well as Dr. Gallo covering for general surgery. NG tube has been placed. (Otto Uriostegui) - Lab Data Lab Results 07/15/20 07/15/20 07/15/20 Range/Units 11:00 11:00 11:00 WBC 9.1 (3.8-10.6) k/uL RBC 4.31 (3.80-5.40) m/uL Hgb 14.5 (11.4-16.0) gm/dL Hct 42.7 (34.0-46.0) % MCV 99.1 (80.0-100.0) fL MCH 33.7 (25.0-35.0) pg MCHC 34.0 (31.0-37.0) g/dL RDW 12.8 (11.5-15.5) % Plt Count 266 (150-450) k/uL MPV 8.1 ESR 18 (0-20) mm/hr Sodium 137 (137-145) mmol/L Potassium 4.3 (3.5-5.1) mmol/L Chloride 102 (98-107) mmol/L Carbon Dioxide 27 (22-30) mmol/L Anion Gap 8 mmol/L BUN 15 (7-17) mg/dL Creatinine 0.77 (0.52-1.04) mg/dL Est GFR (CKD-EPI)AfAm 87 (>60 ml/min/1.73 sqM) Est GFR (CKD-EPI)NonAf 75 (>60 ml/min/1.73 sqM) Glucose 107 H (74-99) mg/dL Uric Acid 5.0 (3.7-7.4) mg/dL Calcium 10.0 (8.4-10.2) mg/dL Total Bilirubin 0.5 (0.2-1.3) mg/dL AST 30 (14-36) U/L ALT 21 (4-34) U/L Alkaline Phosphatase 36 L (38-126) U/L Total Protein 7.6 (6.3-8.2) g/dL Albumin 4.7 (3.5-5.0) g/dL Urine Color Yellow Urine Appearance Cloudy H (Clear) Urine pH 8.0 (5.0-8.0) Ur Specific [place] 1.020 (1.001-1.035) Urine Protein 1+ H (Negative) Urine Glucose (UA) Negative (Negative) Urine Ketones Negative (Negative) Urine Blood Negative (Negative) Urine Nitrite Negative (Negative) Urine Bilirubin Negative (Negative) Urine Urobilinogen <2.0 (<2.0) mg/dL Ur Leukocyte Esterase Negative (Negative) Urine RBC 1 (0-5) /hpf Urine WBC 1 (0-5) /hpf Ur Squamous Epith Cells 9 H (0-4) /hpf Hyaline Casts 1 (0-2) /lpf Urine Mucus Occasional H (None) /hpf Disposition <Niraj Figueroa M - Last Filed: 07/15/20 14:03> <Otto Uriostegui - Last Filed: 07/15/20 15:05> Clinical Impression: Partial small bowel obstruction, Abdominal pain, Nausea & vomiting Disposition: ADMITTED IP TO THIS HOSP Condition: Fair
[2020-07-15] MEDS: SODIUM CHLORIDE 0.9% 1,000 ML IV SCH (14:17)
--- NOTE | 2020-07-15 14:58 | XR ---
EXAMINATION TYPE: XR KUB portable DATE OF EXAM: 07/15/2020 2:44 PM CLINICAL HISTORY: NG tube placement. TECHNIQUE: Single supine KUB image of the abdomen is obtained. COMPARISON: CT abdomen and pelvis earlier today. FINDINGS: New Nasogastric tube coiled below the diaphragm tip towards the antrum. Persistent gaseous prominent small bowel loops centrally in the abdomen. Surgical changes in the mid to lower lumbar spi ne redemonstrated. Cystectomy clips redemonstrated. Lung bases are clear. Underlying scoliosis. Excre tion from CT seen in right-sided ureters. IMPRESSION: As above.
--- NOTE | 2020-07-15 15:18 | XR ---
EXAMINATION TYPE: XR KUB portable DATE OF EXAM: 07/15/2020 COMPARISON: 07/15/2020 INDICATION: NG tube placement TECHNIQUE: Single view abdomen upright view FINDINGS: Air-fluid levels within small bowel loops are present. Small bowel loops appear prominent. Air and ai r-fluid levels are within the colon. Psoas margins are poorly visualized. No organomegaly is present. NG tube is been placed with the tip in the mid abdomen. The redundancy is been removed from the nasog astric tube IMPRESSION: 1. Nasogastric tube tip within the midline of the abdomen. 2. Air-fluid levels within prominent air-filled small bowel loops can be compatible with partial smal l bowel obstruction or ileus
--- NOTE | 2020-07-15 18:48 | P.HPIM ---
History of Present Illness H&P Date: 07/15/20 (Abdominal pain nausea and vomiting for 36 hour period) Chief Complaint: Complaint nausea and vomiting and abdominal pain with the maximum point lef History and physical dictation by Dr. KIMBERLY PASTOR. Date of service 07/15/2020. Chief complaint: Severe abdominal pain was vague progressed and become left lower quadrant, left upper quadrant, epigastric area become severe at night however this started was progressed for the 36 hour period with the pain during the lost night 10 over 10. Patient presented to my office with the severe abdominal pain with the examination was suspicious of small bowel obstruction versus acute diverticulitis. Patient given laboratories prescription and arrangement for a stat computed tomography scan of the abdomen. Subsequently I received a call from radiology Dr. Ger malone with the finding indicating: Consistent with partial distal small bowel obstruction with a possible adhesion and the transition point identified in the right pelvis. Subsequently patient sent to the ER where she was evaluated and admitted to the hospital with the consultation with Dr. Rosario. The surgeon. History of present illness: Mary Greenwood 75 years old white female she has been doing very well however lost night she progressed with severe pain in the lower abdomen and extended to the upper abdomen and the left sided of the colon associated with nausea and vomiting and was actually the exacerbation happened within 12-24 hour. Subsequently she came to my office as mentioned above in the chief complaint. And subsequently admitted to [facility] 520 bed 1 in the [facility] with the consultation with Dr. Atkinson. Patient received nasogastric tube in the ER with the distention of the abdomen. And also pain medication, nausea medication as Zofran. Past medical history: Patient had surgery of the abdomen in age of 1[address] Melissa Inman the surgeon, and at that time the mobilize the right colon and the also resection of the bowel about 8 inches since then she did not have any medical problem. She had also hysterectomy and she had cholecystectomy laparoscopically. She had history of advanced degenerative arthritis and has been seen by rheumatology, Dr. Kelly as well as other deburrer machine in [facility] with the presence of underlying inflammatory arthritis versus erosive osteoarthritis which has been advanced and affected her hands as well as the spine which has been seen in the CAT scan. With the presence of surgery on the back by Dr. Nails who is neurosurgeon and she had cone BX distal distal sco liosis centered and L1-L2 with the loss of normal lumbar lordosis she had multilevel spondylolisthesis, she has moderate to severe eczema joint space loss, mild acetabular sparing in both hips, by the CAT scan done today as well as partial distal small bowel obstruction. ALLERGY: Lisinopril pollens and dust, influenza vaccine, no ALLERGY to iodine. Family history: 2 para 2 and a grown-up daughters she is currently grandmother. 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 #5 pulmonary no shortness of breath no wheezes no rhonchi's #6 GI most important part of her complaint as she had severe abdominal pain with nausea and vomiting started yesterday and last night which was intolerable however elected not to go to the ER. #7 genitourinary no symptoms #8 endocrine: No history of diabetes mellitus with the history of hypo-thyroi dism and she is stable on current medication. #9 history of migraine stable not present currently. #10 the rest of review of system was negative. No diarrhea no bloody stools. On the physical examination today [id number] Patient is conscious alert oriented 3 she is able to talk to her and explained to him her current status. Discussed with the patient today the plan of care and she will be nothing by mouth with NG tube, will be seen by the surgeon Dr. Atkinson, today or tomorrow however we will be repeated the x-ray tomorrow. The head was normocephalic and atraumatic, pupil is equal reactive conjunctiva was pink sclera was nonicteric. Oropharynx natural teeth he'll the midline no fascial asymmetry. And nose negative. Neck was supple no JVD no thyromegaly no lymphadenopathy and trachea midline. Chest has symmetrical with the underlying kyphoscoliosis of the spine, lung is clear to auscultation and percussion. Heart regular sinus rhythm, no arrhythmia and no chest pain. The abdomen: She had severe pain with minimal palpation of the abdomen with the maximum tenderness in the left lower quadrant as well as epigastric with the pain 8-10 over 10. Extremities: No edema and positive pulses bilateral and symmetrical Musculoskeletal she had advanced arthritis of the hand with presence of deformity and deviation, [place] and Anuj, and the spine itself was kyphoscoliosis and spondylolisthesis. Neurological exam conscious alert oriented no lateralizing sign, cranial nerves II through XII intact, motor and sensory is intact. Assessment: #1 acute abdominal pain, nausea and vomiting, #2 partial distal small bowel obstruction. This above diagnoses is the protein her to the office and to the hospital. Other diagnoses #1 arthropathy #2 postmenopausal symptoms #3 hypothyroidism #4 hyperlipidemia #5 GERD disease #6 gastroesophageal reflux disease 7 diaphragmatic hernia. Recommendation and plan: #1 nothing by mouth #2 NG tube for decompression with the nausea and vomiting #3 start Protonix IV piggyback or IV push 40 mg once a day daily #4 consultation with the surgeon because of the small bowel obstruction #5 obtain x-ray tomorrow to see if any improvement as well as BMP. And we'll add a malaise and lipase. Hold all previous medication and continue with the symptomatic treatment with the IV Zofran and IV pain medication. Past Medical History Past Medical History: GERD/Reflux, Hyperlipidemia, Hypertension, Osteoarthritis (OA) History of Any Multi-Drug Resistant Organisms: None Reported Past Surgical History: Adenoidectomy, Appendectomy, Back Surgery, Bowel Res ection, Cholecystectomy, Hysterectomy, Orthopedic Surgery, Tonsillectomy Additional Past Surgical History / Comment(s): partial thyroidectomy,rt foot plate and screws, redundant sigmoid volvulus and mobile rt colon-with resection, rt knee arthroscopy, DEVIATED NASSAL SEPTUM REPAIR Past Anesthesia/Blood Transfusion Reactions: Motion Sickness, Postoperative Nausea & Vomiting (PONV) Past Psychological History: Anxiety Smoking Status: Never smoker Past Alcohol Use History: Occasional Additional Past Alcohol Use History / Comment(s): social smoker quit 52 years ago Past Drug Use History: None Reported - Past Family History Father Family Medical History: Cancer, Rheumatoid Arthritis (RA) Additional Family Medical History / Comment(s): lung cancer Mother Family Medical History: Osteoarthritis (OA) Medications and Allergies Home Medications Medication Instructions Recorded Confirmed Type Escitalopram Oxalate [Lexapro] 10 mg PO HS 11/17/17 07/15/20 History Montelukast [Singulair] 10 mg PO DAILY 11/17/17 07/15/20 History Omeprazole [PriLOSEC] 40 mg PO DAILY 11/17/17 07/15/20 History Simvastatin [Zocor] 20 mg PO HS 11/17/17 07/15/20 History cloNIDine HCL [Catapres] 0.1 mg PO HS 11/17/17 07/15/20 History Gabapentin [Neurontin] 300 mg PO BID PRN 08/27/18 07/15/20 History Ibuprofen/Diphenhydramine HCl 1 cap PO HS 08/27/18 07/15/20 History [Advil Pm Liqui-Gels] Cholecalciferol [Vitamin D3 (25 100 mcg PO DAILY 07/15/20 07/15/20 History Mcg = 1000 Iu)] Estrogen,Nancy/Me-Testosterone 1 tab PO DAILY 07/15/20 07/15/20 History [Eemt Hs 0.625-1.25 mg Tablet] Fish Oil/Dha/Epa [Fish Oil 1,200 1 cap PO BID 07/15/20 07/15/20 History mg Fish Oil] Folic Acid 0.8 mg PO DAILY 07/15/20 07/15/20 History Hydroxychloroquine Sulfate 300 mg PO HS 07/15/20 07/15/20 History [Plaquenil] Levothyroxine Sodium 25 mcg PO DAILY 07/15/20 07/15/20 History Meloxicam [Mobic] 15 mg PO DAILY 07/15/20 07/15/20 History SUMAtriptan SUCCINATE [Imitrex] 25 mg PO BID PRN 07/15/20 07/15/20 History Turmeric Root Extract [Turmeric] 1,000 mg PO DAILY 07/15/20 07/15/20 History amLODIPine [Norvasc] 2.5 mg PO HS 07/15/20 07/15/20 History Allergies Allergy/AdvReac Type Severity Reaction Status Date / Time ciprofloxacin Allergy Rash/Hives Verified 07/15/20 14:48 grass pollen Allergy Dyspnea Verified 07/15/20 14:48 tree and shrub pollen Allergy Dyspnea Verified 07/15/20 14:48 shellfish derived [Shellfish] AdvReac Nausea & Verified 07/15/20 14:48 Vomiting Physical Exam Vitals: Vital Signs Temp Pulse Pulse Resp BP BP Pulse Ox 07/15/20 15:48 98 F 65 17 166/71 98 07/15/20 14:57 98 F 73 18 155/75 98 07/15/20 13:45 98.5 F 83 16 145/75 100 Intake and Output 07/15/20 07/15/20 07/15/20 06:59 14:59 22:59 Other: Voiding Method Toilet Weight 62.142 kg Results CBC & Chem 7: 07/15/20 11:00 07/15/20 11:00 Labs: Abnormal Lab Results - Last 24 Hours (Table) 07/15/20 07/15/20 Range/Units 11:00 11:00 Glucose 107 H (74-99) mg/dL Alkaline Phosphatase 36 L (38-126) U/L Urine Appearance Cloudy H (Clear) Urine Protein 1+ H (Negative) Ur Squamous Epith Cells 9 H (0-4) /hpf Urine Mucus Occasional H (None) /hpf Thrombosis Risk Factor Assmnt - Choose All That Apply Each Factor Represents 1 point: Oral contraceptives or hormone replacement therapy Other Risk Factors: Yes Each Risk Factor Represents 2 Points: Age 61-74 years Each Risk Factor Represents 3 Points: History of DVT/PE Other congenital or acquired thrombophilia - If yes, enter type in comment: No Thrombosis Risk Factor Assessment Total Risk Factor Score: 6 Thrombosis Risk Factor Assessment Level: High Risk
[2020-07-16] MEDS: SODIUM CHLORIDE 0.9% 1,000 ML IV SCH ×2 (06:01→13:31)
[2020-07-16] MEDS: PANTOPRAZOLE 40 MG/10 ML VIAL IVP SCH (08:37)
[2020-07-16 09:39] LABS: African American GFR (CKD) 97.5 (60.0-200.0); Anion Gap 8.7 mmol/L (4.00-12.00); BUN/Creat Ratio 18.57 Ratio (12.00-20.00); Calcium 8.8 mg/dL (8.7-10.3); Carbon Dioxide 25.3 mmol/L (21.6-31.8); Non-African American GFR(CKD) 84.2 (60.0-200.0); Potassium 3.8 mmol/L (3.5-5.5)
--- NOTE | 2020-07-16 10:08 | XR ---
EXAMINATION TYPE: XR abdomen acute w cxr DATE OF EXAM: 07/16/2020 COMPARISON: Abdomen 07/15/2020 HISTORY: Small bowel obstruction TECHNIQUE: Acute abdominal series performed with a frontal chest upright and supine views the abdomen . FINDINGS: Nasogastric tube transverses the thorax with tip in the right upper quadrant of the abdomen . Scattered dilated small bowel loops are present to the left midabdomen. Contrast is within the colo n. No mass effect is evident. No free air is evident. There may be couple of differential air-fluid l evels within the small bowel loops in the left midabdomen. IMPRESSION: 1. Findings suggestive for partial small bowel obstruction into the mid to distal jejunum.
--- NOTE | 2020-07-16 14:24 | P.GSCN ---
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 Patient surgical history also includes appendectomy, cholecystectomy and hyst erectomy. She also has a medical history of GERD, hyperlipidemia and hypertension. Patient presented to the emergency room with complaints of lower and upper abdominal pain for 2 days. She did notice increase in abdominal distention. She was having severe nausea and episodes of vomiting. She also reported having diarrhea. She had gone about 24 hours without passing any gas. She is also been complaining of some chills. She had a computed tomography scan of the abdomen and pelvis findings are consistent with partial distal small bowel obstruction, consider underlying adhesions, transition point identified in the right pelvis. Patient has had NG tube placed with 400 mL of dark fluid ou tput. Patient does report passing some very small amount of gas last night and then diarrhea did start again this morning. She denies any history of bowel obstruction. Denies any constipation. Surgical service was consulted for small bowel obstruction. PAST MEDICAL HISTORY: See list. PAST SURGICAL HISTORY: See list. MEDICATIONS: See list. ALLERGIES: See list. SOCIAL HISTORY: No illicit drug use. REVIEW OF SYSTEMS: CONSTITUTIONAL: Denies fever or chills. HEENT: Denies blurred vision, vision changes, or eye pain. Denies hemoptysis ENDOCRINE: Denies heat or cold intolerance. CARDIOVASCULAR: Denies chest pain or pressure. RESPIRATORY: No shortness of breath. GASTROINTESTINAL: Denies abdominal pain. Denies nausea or vomiting. NEURO: Denies history of seizures. PSYCH: No depression or suicidal ideation HEMATOLOGIC: Denies bleeding disorders. LYMPHATIC: The patient denies any lumps and bumps around the neck. GENITOURINARY: Denies any blood in urine or increased urinary frequency. MUSCULOSKELETAL: Denies myalgias. Denies joint swelling. Denies decreased range of motion beyond patients baseline. SKIN: Denies pruitis. Denies rash. PHYSICAL EXAM: VITAL SIGNS: Reviewed GENERAL: Well-developed in no acute distress. HEENT: No sclera icterus. Extraocular movements grossly intact. Moist buccal mucosa. Head is atraumatic, normocephalic. Hears conversational speech. No nasal drainage. NECK: Supple without lymphadenopathy. CHEST: Non-labored respirations and equal bilateral excursions. CARDIOVASCULAR: Palpable 2+ radial pulses. ABDOMEN: Soft. Distended. diffuse tenderness MUSCULOSKELETAL: No clubbing or cyanosis. NEUROLOGIC: No focal or lateralizing signs. Cranial nerves II through XII grossly intact. PSYCH: Appropriate affect. Alert and oriented to person, place and time. SKIN: Well perfused. Good skin turgor. LABORATORY DATA: WBC 9.1 sodium 140 potassium 3.8 LFTs normal lipase 38 UA negative for infection IMAGING: Computed tomography scan of the abdomen and pelvis findings are consistent with partial distal small bowel obstruction, consider underlying adhesions, transition point identified in the right pelvis. Acute abdominal series shows partial small bowel obstruction into the mid to distal jejunum ASSESSMENT: 1. Partial distal small bowel obstruction possibly due to adhesions with computed tomography scan noting transition point in the right pelvis 2. 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 History of hypertension 4. History of hyperlipidemia 5. History of GERD PLAN: -Continue NG tube for decompression -Continue IV fluids -Continue pain medication as needed -Continue antiemetics as needed -Further recommendations forthcoming per surgeon Thank you for this consultation Physician [employer] note has been reviewed by physician. Signing provider agrees with the documented findings, assessment, and plan of care. Past Medical History Past Medical History: GERD/Reflux, Hyperlipidemia, Hypertension, Osteoarthritis (OA) History of Any Multi-Drug Resistant Organisms: None Reported Past Surgical History: Adenoidectomy, Appendectomy, Back Surgery, Bowel Resection, Cholecystectomy, Hysterectomy, Orthopedic Surgery, Tonsillectomy Additional Past Surgical History / Comment(s): partial thyroidectomy,rt foot plate and screws, redundant sigmoid volvulus and mobile rt colon-with resection, rt knee arthroscopy, DEVIATED NASSAL SEPTUM REPAIR Past Anesthesia/Blood Transfusion Reactions: Motion Sickness, Postoperative Nausea & Vomiting (PONV) Past Psychological History: Anxiety Smoking Status: Never smoker Past Alcohol Use History: Occasional Additional Past Alcohol Use History / Comment(s): social smoker quit 52 years ago Past Drug Use History: None Reported - Past Family History Father Family Medical History: Cancer, Rheumatoid Arthritis (RA) Additional Family Medical History / Comment(s): lung cancer Mother Family Medical History: Osteoarthritis (OA) Medications and Allergies Home Medications Medication Instructions Recorded Confirmed Type Escitalopram Oxalate [Lexapro] 10 mg PO HS 11/17/17 07/15/20 History Montelukast [Singulair] 10 mg PO DAILY 11/17/17 07/15/20 History Omeprazole [PriLOSEC] 40 mg PO DAILY 11/17/17 07/15/20 History Simvastatin [Zocor] 20 mg PO HS 11/17/17 07/15/20 History cloNIDine HCL [Catapres] 0.1 mg PO HS 11/17/17 07/15/20 History Gabapentin [Neurontin] 300 mg PO BID PRN 08/27/18 07/15/20 History Ibuprofen/Diphenhydramine HCl 1 cap PO HS 08/27/18 07/15/20 History [Advil Pm Liqui-Gels] Cholecalciferol [Vitamin D3 (25 100 mcg PO DAILY 07/15/20 07/15/20 History Mcg = 1000 Iu)] Estrogen,Nancy/Me-Testosterone 1 tab PO DAILY 07/15/20 07/15/20 History [Eemt Hs 0.625-1.25 mg Tablet] Fish Oil/Dha/Epa [Fish Oil 1,200 1 cap PO BID 07/15/20 07/15/20 History mg Fish Oil] Folic Acid 0.8 mg PO DAILY 07/15/20 07/15/20 History Hydroxychloroquine Sulfate 300 mg PO HS 07/15/20 07/15/20 History [Plaquenil] Levothyroxine Sodium 25 mcg PO DAILY 07/15/20 07/15/20 History Meloxicam [Mobic] 15 mg PO DAILY 07/15/20 07/15/20 History SUMAtriptan SUCCINATE [Imitrex] 25 mg PO BID PRN 07/15/20 07/15/20 History Turmeric Root Extract [Turmeric] 1,000 mg PO DAILY 07/15/20 07/15/20 History amLODIPine [Norvasc] 2.5 mg PO HS 07/15/20 07/15/20 History Allergies Allergy/AdvReac Type Severity Reaction Status Date / Time ciprofloxacin Allergy Rash/Hives Verified 07/15/20 14:48 grass pollen Allergy Dyspnea Verified 07/15/20 14:48 tree and shrub pollen Allergy Dyspnea Verified 07/15/20 14:48 shellfish derived [Shellfish] AdvReac Nausea & Verified 07/15/20 14:48 Vomiting Surgical - Exam Vital Signs Temp Pulse Resp BP Pulse Ox 98.5 F 83 16 145/75 100 07/15/20 13:45 07/15/20 13:45 07/15/20 13:45 07/15/20 13:45 07/15/20 13:45 Results - Labs 07/15/20 11:00 07/16/20 05:05 Diabetes panel 07/16/20 Range/Units 05:05 Sodium 140 (135-145) mmol/L Potassium 3.8 (3.5-5.5) mmol/L Chloride 106 (96-109) mmol/L Carbon Dioxide 25.3 (21.6-31.8) mmol/L BUN 13.0 (9.0-27.0) mg/dL Creatinine 0.7 (0.6-1.5) mg/dL Glucose 70 (70-110) mg/dL Calcium 8.8 (8.7-10.3) mg/dL Calcium panel 07/16/20 Range/Units 05:05 Calcium 8.8 (8.7-10.3) mg/dL Pituitary panel 07/16/20 Range/Units 05:05 Sodium 140 (135-145) mmol/L Potassium 3.8 (3.5-5.5) mmol/L Chloride 106 (96-109) mmol/L Carbon Dioxide 25.3 (21.6-31.8) mmol/L BUN 13.0 (9.0-27.0) mg/dL Creatinine 0.7 (0.6-1.5) mg/dL Glucose 70 (70-110) mg/dL Calcium 8.8 (8.7-10.3) mg/dL Adrenal panel 07/16/20 Range/Units 05:05 Sodium 140 (135-145) mmol/L Potassium 3.8 (3.5-5.5) mmol/L Chloride 106 (96-109) mmol/L Carbon Dioxide 25.3 (21.6-31.8) mmol/L BUN 13.0 (9.0-27.0) mg/dL Creatinine 0.7 (0.6-1.5) mg/dL Glucose 70 (70-110) mg/dL Calcium 8.8 (8.7-10.3) mg/dL <Alysha Gallo - Last Filed: 07/16/20 15:51> History of Present Illness History of present illness: Patient seen and evaluated. She has history remarkable for multiple abdominal surgeries. As a result, she has small bowel obstruction due to adhesions. Following her abdominal x-ray this morning, she reports having a bowel movement and passing flatus. She denies any abdominal pain since her event yesterday. Additionally, she denies needing any additional morphine today. May start ice and popsicles. Repeat films in the morning. Surgical options of open versus laparoscopic approaches described should her condition decline or symptoms do no t improve. Overall, patient clinically improving. We'll repeat films. Surgical - Exam Vital Signs Temp Pulse Resp BP Pulse Ox 98.5 F 83 16 145/75 100 07/15/20 13:45 07/15/20 13:45 07/15/20 13:45 07/15/20 13:45 07/15/20 13:45 Results - Labs 07/15/20 11:00 07/16/20 05:05 Diabetes panel 07/16/20 Range/Units 05:05 Sodium 140 (135-145) mmol/L Potassium 3.8 (3.5-5.5) mmol/L Chloride 106 (96-109) mmol/L Carbon Dioxide 25.3 (21.6-31.8) mmol/L BUN 13.0 (9.0-27.0) mg/dL Creatinine 0.7 (0.6-1.5) mg/dL Glucose 70 (70-110) mg/dL Calcium 8.8 (8.7-10.3) mg/dL Calcium panel 07/16/20 Range/Units 05:05 Calcium 8.8 (8.7-10.3) mg/dL Pituitary panel 07/16/20 Range/Units 05:05 Sodium 140 (135-145) mmol/L Potassium 3.8 (3.5-5.5) mmol/L Chloride 106 (96-109) mmol/L Carbon Dioxide 25.3 (21.6-31.8) mmol/L BUN 13.0 (9.0-27.0) mg/dL Creatinine 0.7 (0.6-1.5) mg/dL Glucose 70 (70-110) mg/dL Calcium 8.8 (8.7-10.3) mg/dL Adrenal panel 07/16/20 Range/Units 05:05 Sodium 140 (135-145) mmol/L Potassium 3.8 (3.5-5.5) mmol/L Chloride 106 (96-109) mmol/L Carbon Dioxide 25.3 (21.6-31.8) mmol/L BUN 13.0 (9.0-27.0) mg/dL Creatinine 0.7 (0.6-1.5) mg/dL Glucose 70 (70-110) mg/dL Calcium 8.8 (8.7-10.3) mg/dL
--- NOTE | 2020-07-16 16:10 | P.PN ---
Progress Note - Text Progress Note Date: 07/16/20 Please see full dictated consult. Patient presents with abdominal pain following over 20+ year history of multiple abdominal surgeries. Findings were consistent with small bowel obstruction due to adhesions. Recommend repeat abdominal films. Potential surgical intervention should no improvement or worsening abdominal pain
--- NOTE | 2020-07-16 17:06 | P.PN ---
Subjective Progress Note Date: 07/16/20 (Distal small bowel obstruction partial.) This is a dictation of progress note date of service 07/16/2020. Patient seen and evaluated [id number] Patient instructed with the results of the x-ray of the abdomen with the still presence distal small bowel obstruction. Not reported yet Patient has better today and feeling that going of her small bowel but no passing flatus she stated that she had some diarrhea not documented. Patient had IV fluid continued and nothing by mouth and has NG tube nasogastric for deflation of the stomach with the presence of a small bowel. At the time of the examination patient was seen by the PA of the surgeon and was told that the surgeon Dr. Gramajo will see in the evening time. On the physical examination Vital sign stable and the blood pressure is controlled On exam the head was normocephalic atraumatic, pupils equal reactive, nasogastric tube in place with the start the presence of acidemic teen brownish discoloration of the NG tube. And patient started on the PPI IV push before meals breakfast. Neck was supple no JVD no thyromegaly no lymphadenopathy trachea midline. Chest is clear to auscultation and percussion no wheezes no rhonchi's. Heart PMI in the fifth intercostal space normal S1 and S2 no gallop and the blood pressure is controlled at this time The abdomen: Soft with the still tenderness in the epigastric and left lower quadrant there is a the positive sound and we hope that his dissolve without surgeon. Extremities no edema and positive pulses Neurologically stable no lateralizing sign. Assessment: #1 underlying distal partial small bowel obstruction still present today as well. #2 patient continued with NG tube and nothing by mouth. Plan: We consulted Dr. Gramajo to see the patient in follow and will continue the current plan of treatment. Objective - Vital Signs Vital signs: Vital Signs Temp 97.7 F 07/16/20 12:32 Pulse 89 07/16/20 12:32 Resp 17 07/16/20 12:32 BP 138/71 07/16/20 12:32 Pulse Ox 97 07/16/20 12:32 Intake & Output 07/15/20 07/16/20 07/16/20 18:59 06:59 18:59 Intake Total 262.5 900 Output Total 400 Balance 262.5 500 Weight 62.142 kg Intake: Intake, IV Titration 262.5 900 Amount Sodium Chloride 0.9% 1, 262.5 900 000 ml @ 75 mls/hr IV . [id number] [facility] Rx#:[id number] Output: Gastric Drainage 400 Other: Voiding Method Toilet # Voids 3 2 2 # Bowel Movements 3 - Labs CBC & Chem 7: 07/15/20 11:00 07/16/20 05:05
[2020-07-17] MEDS: SODIUM CHLORIDE 0.9% 1,000 ML IV SCH (05:13)
--- NOTE | 2020-07-17 07:55 | XR ---
EXAMINATION TYPE: XR abdomen 2V DATE OF EXAM: 07/17/2020 CLINICAL HISTORY: Small bowel obstruction. TECHNIQUE: Supine and upright decubitus views of the abdomen are obtained. COMPARISON: CT and x-ray 2 days ago. FINDINGS: Stable nasogastric tube contrast from CT has passed into nondistended colon. Improved diste ntion of scattered small bowel loops. No residual air-fluid levels are identified. Underlying scoliosis redemonstrated. Postsurgical change mid to lower lumbar spine redemonstrated. Pe rsistent spurring and disc space narrowing upper to mid lumbar spine. Cholecystectomy clips. No free air. Lung bases are clear. IMPRESSION: Overall improved bowel gas pattern. Suspect resolving partial distal small bowel obstruct ion.
[2020-07-17] MEDS: PANTOPRAZOLE 40 MG/10 ML VIAL IVP SCH (07:56)
--- NOTE | 2020-07-17 09:34 | P.PN ---
Subjective Progress Note Date: 07/17/20 abdominal x-ray reviewed. Resolution of small bowel obstruction. Moderate gas within colon. I personally removed her nasogastric tube. Will start full liquid diet. Once tolerated, then may discharge and follow-up in the office. Objective - Vital Signs Vital signs: Vital Signs Temp 97.8 F 07/17/20 05:00 Pulse 93 07/17/20 05:00 Resp 16 07/16/20 20:13 BP 165/78 07/17/20 05:00 Pulse Ox 99 07/17/20 05:00 Intake & Output 07/16/20 07/17/20 07/17/20 18:59 06:59 18:59 Intake Total 900 900 Output Total 450 600 Balance 450 900 -600 Intake: Intake, IV Titration 900 900 Amount Sodium Chloride 0.9% 1, 900 900 000 ml @ 75 mls/hr IV . [id number] [facility] Rx#:[id number] Output: Gastric Drainage 450 600 Other: Voiding Method Toilet # Voids 5 3 # Bowel Movements 3 - Labs CBC & Chem 7: 07/15/20 11:00 07/16/20 05:05
[2020-07-17 12:58] VITALS: BP 153/67; PULSE 75; RESP 14; TEMP 98.9
--- NOTE | 2020-07-17 15:21 | P.DS ---
Providers Date of admission: 07/15/20 14:12 Expected date of discharge: 07/17/20 (Distal partial small bowel obstruction) Attending physician: Vicente De Leon Consults: 07/15/20 14:09 Consult Physician Urgent Consulting Provider: Alysha Gallo Consult Reason/Comments: Small bowel obstruction Do you want consulting provider notified?: Yes Primary care physician: Vicente De Leon ALLERGIES discharge summary date of admission 07/15/2020 Date of discharge 07/17/2020. Final diagnoses #1 acute abdominal pain #2 distal small bowel partial obstruction temporary results. #3 planned for probiotic removal of adhesions after seen Dr. Rosario the surgeon on her appointment on next Monday as outpatient. #4 hypertension essential fairly controlled with the current of her medication. #5all her medication with the resume her easy digest diet. #6 in the interval if she has any current abdominal pain which has been resolved on discharge she will call Dr. Rosario or come to the emergency room and they will call Dr. Rosario. Presentation to the emergency room: Patient was seen in the office first with the severe abdominal pain, subsequently sent to the CAT scan with contrast and found that she had small bowel obstruction partial and subsequently she transferred from the CT scanner to the ER and admitted to the hospital with the nothing by mouth and NG tube and consultation with Dr. Rosario. Hospital course patient on admission her laboratory was normal. And vital sign stable and NG tube was placed for decompression of the stomach with the presence of a small bowel obstruction subsequently she had abdominal x-ray yesterday which was still persistent obstruction, today her x-ray showed improvement with this started of volume movement, seen by Dr. Rosario and she discussed with her that she'll be discharged home and to see her on Monday as outpatient and they will make arrangement ordered by Dr. Rosario. [id number] exam on discharge: NG tube has been removed by Dr. Rosario, her Vital signs today on July 17 indicating the temperature 98.9 F oral, pulse rate 75 bpm, respiratory rate 16, blood pressure 153/67. With the pulse ox 98% on room air. Head was normocephalic and atraumatic. Pupil was equal reactive conjunctiva was pink sclera was nonicteric oropharynx was negative natural disease. Neck was supple no JVD no thyromegaly no adenopathy trachea midline. Chest is clear to auscultation and percussion no wheezes no rhonchi and the heart was regular sinus rhythm and the PMI in the fifth intercostal space. Abdomen was positive bowel sounds and no tenderness. In the 4 quadrants and apparently with the resolution of the small bowel obstruction Dr. Rosario cleared her for discharge today Extremities no edema. Pulses and doing neurological deficits ambulatory. No lateralizing sign. Assessment: #1 patient stable at this time resuming her oral intake and will follow with Dr. Rosario. #2 still the underlying adhesions is to be taking care of by Dr. Rosario with the robotic laparoscopy for removing the adhesions Plan: #1 discharge home today #2 follow-up in one week in my office #3 follow-up with Dr. Rosario the surgeon on next Monday for procedure. #4 continue home medication. Patient Condition at Discharge: Fair Plan - Discharge Summary Discharge Rx Participant: No New Discharge Prescriptions: Continue Omeprazole [PriLOSEC] 40 mg PO DAILY cloNIDine HCL [Catapres] 0.1 mg PO HS Simvastatin [Zocor] 20 mg PO HS Escitalopram Oxalate [Lexapro] 10 mg PO HS Montelukast [Singulair] 10 mg PO DAILY Gabapentin [Neurontin] 300 mg PO BID PRN PRN Reason: Pain Ibuprofen/Diphenhydramine HCl [Advil Pm Liqui-Gels] 1 cap PO HS amLODIPine [Norvasc] 2.5 mg PO HS Cholecalciferol [Vitamin D3 (25 Mcg = 1000 Iu)] 100 mcg PO DAILY Estrogen,Nancy/Me-Testosterone [Eemt Hs 0.625-1.25 mg Tablet] 1 tab PO DAILY Fish Oil/Dha/Epa [Fish Oil 1,200 mg Fish Oil] 1 cap PO BID Folic Acid 0.8 mg PO DAILY Hydroxychloroquine Sulfate [Plaquenil] 300 mg PO HS Levothyroxine Sodium 25 mcg PO DAILY SUMAtriptan SUCCINATE [Imitrex] 25 mg PO BID PRN PRN Reason: Migraine Headache Turmeric Root Extract [Turmeric] 1,000 mg PO DAILY Discontinued Meloxicam [Mobic] 15 mg PO DAILY Discharge Medication List Escitalopram Oxalate [Lexapro] 10 mg PO HS 11/17/17 [History] Montelukast [Singulair] 10 mg PO DAILY 11/17/17 [History] Omeprazole [PriLOSEC] 40 mg PO DAILY 11/17/17 [History] Simvastatin [Zocor] 20 mg PO HS 11/17/17 [History] cloNIDine HCL [Catapres] 0.1 mg PO HS 11/17/17 [History] Gabapentin [Neurontin] 300 mg PO BID PRN 08/27/18 [History] Ibuprofen/Diphenhydramine HCl [Advil Pm Liqui-Gels] 1 cap PO HS 08/27/18 [History] Cholecalciferol [Vitamin D3 (25 Mcg = 1000 Iu)] 100 mcg PO DAILY 07/15/20 [History] Estrogen,Nancy/Me-Testosterone [Eemt Hs 0.625-1.25 mg Tablet] 1 tab PO DAILY 07/15/20 [History] Fish Oil/Dha/Epa [Fish Oil 1,200 mg Fish Oil] 1 cap PO BID 07/15/20 [History] Folic Acid 0.8 mg PO DAILY 07/15/20 [History] Hydroxychloroquine Sulfate [Plaquenil] 300 mg PO HS 07/15/20 [History] Levothyroxine Sodium 25 mcg PO DAILY 07/15/20 [History] SUMAtriptan SUCCINATE [Imitrex] 25 mg PO BID PRN 07/15/20 [History] Turmeric Root Extract [Turmeric] 1,000 mg PO DAILY 07/15/20 [History] amLODIPine [Norvasc] 2.5 mg PO HS 07/15/20 [History] Follow up Appointment(s)/Referral(s): Alysha Gallo MD [STAFF PHYSICIAN] - 07/21/20 2:15 pm Vicente De Leon MD [Primary Care Provider] - 1 Week Patient Instructions/Handouts: Bowel Obstruction (DC) Discharge Disposition: HOME SELF-CARE
== END 2020-07-17 15:19 | disposition home or self-care (01) | DRG 390 ==
LOC: EC 13:38 → 5NMEDONC 14:12
PROVIDERS: ADMIT Internal Medicine; ATTEND Internal Medicine
PROC: 0D9670Z Drainage of Stomach with Drainage Device, Via Natural or Artificial Opening (ICD-10-PCS; principal; 2020-07-15)
DX: K56.51 Intestinal adhesions [bands], with partial obstruction (principal); K21.9 Gastro-esophageal reflux disease without esophagitis; E78.5 Hyperlipidemia, unspecified; E89.0 Postprocedural hypothyroidism; I10 Essential (primary) hypertension; M41.9 Scoliosis, unspecified; M43.16 Spondylolisthesis, lumbar region; F41.9 Anxiety disorder, unspecified; K44.9 Diaphragmatic hernia without obstruction or gangrene; M19.90 Unspecified osteoarthritis, unspecified site; Z79.890 Hormone replacement therapy; Z79.1 Long term (current) use of non-steroidal anti-inflammatories (NSAID); Z79.899 Other long term (current) drug therapy; Z90.89 Acquired absence of other organs; Z90.49 Acquired absence of other specified parts of digestive tract; Z90.710 Acquired absence of both cervix and uterus; Z87.19 Personal history of other diseases of the digestive system; Z87.42 Personal history of other diseases of the female genital tract; Z87.39 Personal history of other diseases of the musculoskeletal system and connective tissue; Z87.891 Personal history of nicotine dependence; Z87.09 Personal history of other diseases of the respiratory system; Z98.890 Other specified postprocedural states; Z88.1 Allergy status to other antibiotic agents; Z91.013 Allergy to seafood; Z88.7 Allergy status to serum and vaccine; Z88.8 Allergy status to other drugs, medicaments and biological substances; Z91.048 Other nonmedicinal substance allergy status; Z80.1 Family history of malignant neoplasm of trachea, bronchus and lung; Z82.61 Family history of arthritis
CPT/HCPCS: 36415; 74018; 74019; 74022; 74177; 80048; 80053; 81001; 82150; 83690; 84550; 85027; 85652; 96374; 99285

== ENCOUNTER 2020-08-07 05:46 | Day surgery (SDC) | payer MEDICARE, BC ==
[2020-08-04 11:57] VITALS: BMI 23.6
[~2020-08-07 05:46] MED LIST changes: -DEXAMETHASONE SOD PHOSPHATE 10 MG/ML 1 ML VIAL IV ONE; -DEXAMETHASONE SOD PHOSPHATE 4 MG/ML 1 ML VIAL IV ONE; -FAMOTIDINE 20 MG/2 ML VIAL IV ONE; -LACTATED RINGERS 1,000 ML IV SCH; -LIDOCAINE 1% 20 ML VIAL (10MG/ML) FOR IV START INTRADERMA PRN; -MELOXICAM 7.5 MG TAB PO ONE; -MIDAZOLAM 2 MG/2 ML VIAL IV PRN; -ONDANSETRON 4 MG/2 ML VIAL IVP ONE; -OXYMETAZOLINE 0.05% NASL SPRAY 1 SPRAY BOTTLE NASAL ONE; +Pre Op ABX Message 1 EACH MISC MISCELLANE ONE; -SCOPOLAMINE 1.5MG/72HR PATCH TRANSDERM ONE; -ceFAZolin 1,000 MG in DEXTROSE/WATER 1 50ML.BAG IV ONE
[2020-08-07] MEDS ORDERED: MIDAZOLAM 2 MG/2 ML VIAL IV PRN (06:05)
[2020-08-07] MEDS ORDERED: DEXAMETHASONE SOD PHOSPHATE 4 MG/ML 1 ML VIAL IV ONE (06:05)
[2020-08-07] MEDS ORDERED: ONDANSETRON 4 MG/2 ML VIAL IVP ONE (06:05)
[2020-08-07] MEDS ORDERED: GABAPENTIN 300 MG CAP PO STA (06:05)
[2020-08-07] MEDS ORDERED: HEPARIN SODIUM,PORCINE 5,000 UNIT/ML 1 ML VIAL SQ ONE (06:05)
[2020-08-07] MEDS ORDERED: ACETAMINOPHEN TAB 500 MG TAB PO STA (06:05)
[2020-08-07] MEDS ORDERED: LIDOCAINE 1% (10MG/ML) FOR IV START INTRADERMA ONE (06:49)
[2020-08-07] MEDS: LACTATED RINGERS 1,000 ML IV SCH ×2 (06:50→11:49)
[2020-08-07] MEDS ORDERED: MELOXICAM 7.5 MG TAB PO ONE (07:00)
[2020-08-07] MEDS ORDERED: HYDROmorphone 0.5 MG/0.5 ML SYRINGE IVP PRN (07:00)
[2020-08-07] MEDS ORDERED: GABAPENTIN 300 MG CAP PO ONE (07:00)
[2020-08-07 07:12] VITALS: TEMP 98.1
--- NOTE | 2020-08-07 07:25 | P.GSHP ---
History of Present Illness H&P Date: 08/07/20 CHIEF COMPLAINT: History of intra-abdominal adhesions HISTORY OF PRESENT ILLNESS: The patient is a 75-year-old female who presents with history of intra-abdominal adhesions from multiple prior surgeries including increasing abdominal pain. She now presents for diagnostic laparoscopy including lysis of adhesions. PAST MEDICAL HISTORY: Please see list. PAST SURGICAL HISTORY: Please see list. MEDICATIONS: Please see list. ALLERGIES: Please see list. SOCIAL HISTORY: No illicit drug use FAMILY HISTORY: No reports of Crohn disease or ulcerative colitis. REVIEW OF ORGAN SYSTEMS: CONSTITUTIONAL: No reports of fevers or chills. GI: Denies any blood in stools or constipation. PHYSICAL EXAM: VITAL SIGNS: Stable GENERAL: Well-developed pleasant and in no acute distress. HEENT: No scleral icterus. Extraocular movements grossly intact. Moist buccal mucosa. NECK: Supple without lymphadenopathy. CHEST: Unlabored respirations. Equal bilateral excursions. CARDIOVASCULAR: Regular rate and rhythm. Distal 2+ pulses. ABDOMEN: Soft, diffuse abdominal tenderness. No peritonitis. MUSCULOSKELETAL: No clubbing, cyanosis, or edema. ASSESSMENT: 1. Diffuse abdominal pain. 2. History of multiple abdominal surgeries. 3. Intra-abdominal adhesions. PLAN: 1. Robotic lysis of adhesions were described in detail including risk of injury to the intestine, need for further surgery, and open technique. 2. DVT prophylaxis. 3. Antibiotic prophylaxis. Past Medical History Past Medical History: GERD/Reflux, Hyperlipidemia, Hypertension, Osteoarthritis (OA) Additional Past Medical History / Comment(s): hx of small bowel obstruction History of Any Multi-Drug Resistant Organisms: None Reported Past Surgical History: Adenoidectomy, Appendectomy, Back Surgery, Bowel Resection, Cholecystectomy, Hysterectomy, Orthopedic Surgery, Tonsillectomy Additional Past Surgical History / Comment(s): partial thyroidectomy,rt foot plate and screws, redundant sigmoid volvulus and mobile rt colon-with resection, rt knee arthroscopy, DEVIATED NASSAL SEPTUM REPAIR Past Anesthesia/Blood Transfusion Reactions: Motion Sickness, Postoperative Nausea & Vomiting (PONV) Smoking Status: Never smoker - Past Family History Father Family Medical History: Cancer, Rheumatoid Arthritis (RA) Additional Family Medical History / Comment(s): lung cancer Mother Family Medical History: Osteoarthritis (OA) Medications and Allergies Home Medications Medication Instructions Recorded Confirmed Type Escitalopram Oxalate [Lexapro] 10 mg PO HS 11/17/17 08/04/20 History Montelukast [Singulair] 10 mg PO DAILY 11/17/17 08/04/20 History Omeprazole [PriLOSEC] 40 mg PO DAILY 11/17/17 08/04/20 History Simvastatin [Zocor] 20 mg PO HS 11/17/17 08/04/20 History cloNIDine HCL [Catapres] 0.1 mg PO HS 11/17/17 08/04/20 History Gabapentin [Neurontin] 300 mg PO BID PRN 08/27/18 08/04/20 History Cholecalciferol [Vitamin D3 (25 100 mcg PO DAILY 07/15/20 08/04/20 History Mcg = 1000 Iu)] Estrogen,Nancy/Me-Testosterone 1 tab PO DAILY 07/15/20 08/04/20 History [Eemt Hs 0.625-1.25 mg Tablet] Fish Oil/Dha/Epa [Fish Oil 1,200 1 cap PO BID 07/15/20 08/04/20 History mg Fish Oil] Folic Acid 0.8 mg PO DAILY 07/15/20 08/04/20 History Hydroxychloroquine Sulfate 300 mg PO HS 07/15/20 08/04/20 History [Plaquenil] Levothyroxine Sodium 25 mcg PO DAILY 07/15/20 08/04/20 History SUMAtriptan SUCCINATE [Imitrex] 25 mg PO BID PRN 07/15/20 08/07/20 History Turmeric Root Extract [Turmeric] 1,000 mg PO DAILY 07/15/20 08/07/20 History amLODIPine [Norvasc] 2.5 mg PO HS 07/15/20 08/07/20 History Meloxicam [Mobic] 15 mg PO DAILY 08/04/20 08/07/20 History cycloSPORINE 0.05% OPHTH SOLN 1 applicator BOTH EYES Q12H 08/04/20 08/04/20 History [Restasis] Allergies Allergy/AdvReac Type Severity Reaction Status Date / Time ciprofloxacin Allergy Rash/Hives Verified 08/07/20 06:14 grass pollen Allergy Dyspnea Verified 08/07/20 06:14 tree and shrub pollen Allergy Dyspnea Verified 08/07/20 06:14 shellfish derived [Shellfish] AdvReac Nausea & Verified 08/07/20 06:14 Vomiting Surgical - Exam Vital Signs Temp Pulse Resp BP Pulse Ox 98.1 F 58 L 18 115/56 97 08/07/20 06:20 08/07/20 06:20 08/07/20 06:20 08/07/20 06:20 08/07/20 06:20
[2020-08-07] MEDS ORDERED: NEOSTIGMINE 1 MG/ML 10 ML VIAL ONE (07:28)
[2020-08-07] MEDS ORDERED: ePHEDrine SULFATE/0.9% NACL/PF 50 MG/5 ML SYRINGE IV ONE (07:28)
[2020-08-07] MEDS ORDERED: SUCCINYLCHOLINE CHLORIDE 100 MG/5 ML SYR IV ONE (07:28)
[2020-08-07] MEDS ORDERED: LIDOCAINE 1% INJ 10MG/ML (20 ML MDV) ONE (07:28)
[2020-08-07] MEDS ORDERED: ROCURONIUM 10 MG/ML (5 ML VIAL) IV ONE (07:28)
[2020-08-07] MEDS ORDERED: GLYCOPYRROLATE 0.2 MG/ML 2 ML VIAL ONE (07:28)
[2020-08-07] MEDS ORDERED: fentaNYL (PF) 50 MCG/ML 2 ML AMP ONE (07:28)
[2020-08-07] MEDS ORDERED: MIDAZOLAM 2 MG/2 ML VIAL ONE (07:28)
[2020-08-07] MEDS ORDERED: PROPOFOL 10 MG/ML 20 ML VIAL IV ONE (07:28)
[2020-08-07] MEDS ORDERED: LIDOCAINE 1%-EPI 1:100,000 20 ML VIAL SQ ONE (08:11)
[2020-08-07] MEDS ORDERED: LACTATED RINGERS 1,000 ML IV ONE (08:40)
--- NOTE | 2020-08-07 08:59 | P.OP ---
Date of Procedure: 08/07/20 Description of Procedure: SURGEON: ALYSHA GALLO MD PREOPERATIVE DIAGNOSES: 1. Recent small bowel obstruction due to peritoneal adhesion 2. Bilateral lower abdominal pain 3. History of multiple abdominal surgeries 4. Rheumatoid arthritis 5. History of cecal volvulus status post colectomy 6. Hypertensive heart disease 7. Migraine 8. Gastroesophageal reflux disease 9. Hyperlipidemia 10. Hypothyroidism 11. Neuropathy 12. Depressive disorder 13. Postoperative nausea and vomiting POSTOPERATIVE DIAGNOSES: 1. Small bowel obstruction due to moderate peritoneal adhesions, pelvis 2. Active small bowel volvulus, pelvis 3. History of multiple abdominal surgeries 4. Rheumatoid arthritis 5. History of cecal volvulus status post colectomy 6. Hypertensive heart disease 7. Migraine 8. Gastroesophageal reflux disease 9. Hyperlipidemia 10. Hypothyroidism 11. Neuropathy 12. Depressive disorder 13. Postoperative nausea and vomiting 14. Abdominal wall adhesions OPERATION: 1. Robotic-assisted da Martha Xi laparoscopic with lysis of adhesions ESTIMATED BLOOD LOSS: 5 mL. SPECIMENS REMOVED: None. COMPLICATIONS: None. OPERATIVE FINDINGS: 1. No inguinal hernias 2. Moderate omentum to abdominal wall adhesions upper lower midline 3. After small bowel volvulus right pelvis detorsed 4. Adhesive band small bowel to the left pelvis as cause of bowel obstruction lysed 5. Small bowel from ligament of Treitz to ileocecal valve with all adhesions addressed INDICATIONS: The patient is a 75-year-old female who presents with recent small bowel obstruction due to peritoneal adhesions along the right lower quadrant. Surgical intervention with diagnostic laparoscopy, lysis of adhesions were described. Informed consent was obtained. Robotic assisted laparoscopic approach was described. Benefits and risks of the procedure including but not limited to bleeding, infection, injury to the biliary tree was described. Informed consent was obtained. DESCRIPTION OF PROCEDURE: Patient was brought to the operating room, placed in supine position. After general induction, the abdomen had been prepped and draped in standard sterile fashion. The robotic da Martha XI system was primed. After a timeout protocol was performed, the patient had been prepped and draped in standard sterile fashion. The robot was docked along the left lateral abdomen. Please note prior to docking of the robot; however, a 5 mm 0 degrees laparoscopic trocar entry was performed along the left upper quadrant. Next, three 8 mm robotic ports were placed along the upper abdomen. The camera 8-mm port was maintained along the epigastrium. Please note that the ports were placed at least 10 to 15 cm away from the target anatomy. Instruments including graspers and scissors with cautery were interchanged by the assistant food service director. I had sat at the console. Greater omental adhesions to the abdominal wall along the upper to lower midline were completely lysed using vessel sealer. Hemostasis was checked. Next attention was brought to the small intestine with her recent history of bowel obstruction and transition point along the right lower quadrant. The small bowel was investigated from the ileocecal valve to the ligament of Treitz. At the proximal ileum, a dense adhesive band was adherent to the left pelvis and sharply lysed. An active small bowel was detorsed. The small bowel was viable with peristalsis. The transverse colon was redundant where the proximal transverse colon was adherent to the cecum and undisturbed. No further evidence of bowel obstruction is identified. This concluded the procedure. The robot was undocked. All pneumoperitoneum and instruments were evacuated from the abdominal cavity. The incisions were reapproximated using 4-0 Monocryl in an interrupted subcuticular fashion. Please note along the trocar sites, local anesthetic was placed as a field block prior to insertion of all instruments. Exofin was applied to the skin. At the end of the procedure needle, sponge, and instrument count had been verified correct by the surgical asst. The patient was transferred to postanesthesia care unit in stable condition. Plan - Discharge Summary Discharge Rx Participant: No New Discharge Prescriptions: New Acetaminophen [Tylenol] 650 mg PO Q4H PRN #30 tab PRN Reason: Pain Continue Omeprazole [PriLOSEC] 40 mg PO DAILY cloNIDine HCL [Catapres] 0.1 mg PO HS Simvastatin [Zocor] 20 mg PO HS Escitalopram Oxalate [Lexapro] 10 mg PO HS Montelukast [Singulair] 10 mg PO DAILY Gabapentin [Neurontin] 300 mg PO BID PRN PRN Reason: Pain amLODIPine [Norvasc] 2.5 mg PO HS Cholecalciferol [Vitamin D3 (25 Mcg = 1000 Iu)] 100 mcg PO DAILY Estrogen,Nancy/Me-Testosterone [Eemt Hs 0.625-1.25 mg Tablet] 1 tab PO DAILY Fish Oil/Dha/Epa [Fish Oil 1,200 mg Fish Oil] 1 cap PO BID Folic Acid 0.8 mg PO DAILY Hydroxychloroquine Sulfate [Plaquenil] 300 mg PO HS Levothyroxine Sodium 25 mcg PO DAILY SUMAtriptan SUCCINATE [Imitrex] 25 mg PO BID PRN PRN Reason: Migraine Headache Turmeric Root Extract [Turmeric] 1,000 mg PO DAILY cycloSPORINE 0.05% OPHTH SOLN [Restasis] 1 applicator BOTH EYES Q12H Meloxicam [Mobic] 15 mg PO DAILY Discharge Medication List Escitalopram Oxalate [Lexapro] 10 mg PO HS 11/17/17 [History] Montelukast [Singulair] 10 mg PO DAILY 11/17/17 [History] Omeprazole [PriLOSEC] 40 mg PO DAILY 11/17/17 [History] Simvastatin [Zocor] 20 mg PO HS 11/17/17 [History] cloNIDine HCL [Catapres] 0.1 mg PO HS 11/17/17 [History] Gabapentin [Neurontin] 300 mg PO BID PRN 08/27/18 [History] Cholecalciferol [Vitamin D3 (25 Mcg = 1000 Iu)] 100 mcg PO DAILY 07/15/20 [History] Estrogen,Nancy/Me-Testosterone [Eemt Hs 0.625-1.25 mg Tablet] 1 tab PO DAILY 07/15/20 [History] Fish Oil/Dha/Epa [Fish Oil 1,200 mg Fish Oil] 1 cap PO BID 07/15/20 [History] Folic Acid 0.8 mg PO DAILY 07/15/20 [History] Hydroxychloroquine Sulfate [Plaquenil] 300 mg PO HS 07/15/20 [History] Levothyroxine Sodium 25 mcg PO DAILY 07/15/20 [History] SUMAtriptan SUCCINATE [Imitrex] 25 mg PO BID PRN 07/15/20 [History] Turmeric Root Extract [Turmeric] 1,000 mg PO DAILY 07/15/20 [History] amLODIPine [Norvasc] 2.5 mg PO HS 07/15/20 [History] Meloxicam [Mobic] 15 mg PO DAILY 08/04/20 [History] cycloSPORINE 0.05% OPHTH SOLN [Restasis] 1 applicator BOTH EYES Q12H 08/04/20 [History] Acetaminophen [Tylenol] 650 mg PO Q4H PRN #30 tab 08/07/20 [Rx] Follow up Appointment(s)/Referral(s): Alysha Gallo MD [STAFF PHYSICIAN] - 08/11/20 Patient Instructions/Handouts: Lysis of Abdominal Adhesions (IP), *[facility] - Managing Your Pain After Surgery Without Opioids Activity/Diet/Wound Care/Special Instructions: No lifting over 10 pounds in 2 weeks until August 21. May shower. No bath tub soaks for two weeks until August 21. Diet as tolerated. Use Tylenol and ibuprofen or Aleve scheduled for the next 24-48 hours for best pain relief. Use ice along incisions for today to prevent swelling. Discharge Disposition: HOME SELF-CARE
[2020-08-07 09:06] VITALS: RESP 16
[2020-08-07 09:55] VITALS: BP 107/63; PULSE 85
== END 2020-08-07 12:02 | disposition home or self-care (01) ==
LOC: OR 05:46
PROVIDERS: ATTEND Surgery Plastic and Reconstructive Surgery
DX: K56.50 Intestinal adhesions [bands], unspecified as to partial versus complete obstruction (principal); M06.9 Rheumatoid arthritis, unspecified; I11.9 Hypertensive heart disease without heart failure; G43.909 Migraine, unspecified, not intractable, without status migrainosus; E03.9 Hypothyroidism, unspecified; E78.5 Hyperlipidemia, unspecified; F32.9 Major depressive disorder, single episode, unspecified; G62.9 Polyneuropathy, unspecified; Z90.49 Acquired absence of other specified parts of digestive tract; Z98.890 Other specified postprocedural states; K21.9 Gastro-esophageal reflux disease without esophagitis; K56.2 Volvulus; M19.90 Unspecified osteoarthritis, unspecified site; Z90.710 Acquired absence of both cervix and uterus; Z90.89 Acquired absence of other organs; Z80.1 Family history of malignant neoplasm of trachea, bronchus and lung; Z82.61 Family history of arthritis; Z88.1 Allergy status to other antibiotic agents; Z91.013 Allergy to seafood; Z91.09 Other allergy status, other than to drugs and biological substances; Z79.1 Long term (current) use of non-steroidal anti-inflammatories (NSAID); Z79.899 Other long term (current) drug therapy; Z79.890 Hormone replacement therapy
CPT/HCPCS: 44180; J2250; J1644; J1100; J2710; J0690; J2405; J2001; J3010; J0330; J2704

== ENCOUNTER 2020-10-14 08:45 | Day surgery (SDC) | payer MEDICARE, BC ==
[2020-10-13 09:06] VITALS: BMI 24.4
--- NOTE | 2020-10-14 07:36 | P.GSHP ---
History of Present Illness H&P Date: 10/14/20 CHIEF COMPLAINT: GERD HISTORY OF PRESENT ILLNESS: The patient is a 75-year-old female who presents reports gastroesophageal reflux disease. Upper endoscopy was offered for further evaluation and management. PAST MEDICAL HISTORY: Please see list. PAST SURGICAL HISTORY: Please see list. MEDICATIONS: Please see list. ALLERGIES: Please see list. SOCIAL HISTORY: No illicit drug use FAMILY HISTORY: No reports of Crohn disease or ulcerative colitis. REVIEW OF ORGAN SYSTEMS: CONSTITUTIONAL: No reports of fevers or chills. GI: Denies any blood in stools or constipation. PHYSICAL EXAM: VITAL SIGNS: Stable GENERAL: Well-developed and pleasant in no acute distress. HEENT: No scleral icterus. Extraocular movements grossly intact. Moist buccal mucosa. NECK: Supple without lymphadenopathy. CHEST: Unlabored respirations. Equal bilateral excursions. CARDIOVASCULAR: Regular rate and rhythm. Distal 2+ pulses. ABDOMEN: Soft, nondistended. MUSCULOSKELETAL: No clubbing, cyanosis, or edema. ASSESSMENT: 1. Gastroesophageal reflux disease PLAN: 1. Recommend proceeding with an upper endoscopy Past Medical History Past Medical History: Cancer, GERD/Reflux, Hyperlipidemia, Hypertension, Osteoarthritis (OA), Thyroid Disorder Additional Past Medical History / Comment(s): hx of small bowel obstruction, skin cancer on face. History of Any Multi-Drug Resistant Organisms: None Reported Past Surgical History: Adenoidectomy, Appendectomy, Back Surgery, Bowel Resection, Cholecystectomy, Hysterectomy, Orthopedic Surgery, Tonsillectomy Additional Past Surgical History / Comment(s): partial thyroidectomy, rt foot plate and screws, rt knee arthroscopy, DEVIATED nasal SEPTUM REPAIR Past Anesthesia/Blood Transfusion Reactions: Motion Sickness, Postoperative Nausea & Vomiting (PONV) Smoking Status: Former smoker - Past Family History Father Family Medical History: Cancer, Rheumatoid Arthritis (RA) Additional Family Medical History / Comment(s): lung cancer Mother Family Medical History: Osteoarthritis (OA) Medications and Allergies Home Medications Medication Instructions Recorded Confirmed Type Escitalopram Oxalate [Lexapro] 10 mg PO HS 11/17/17 10/13/20 History Montelukast [Singulair] 10 mg PO DAILY 11/17/17 10/13/20 History Omeprazole [PriLOSEC] 40 mg PO DAILY 11/17/17 10/13/20 History Simvastatin [Zocor] 20 mg PO HS 11/17/17 10/13/20 History cloNIDine HCL [Catapres] 0.1 mg PO HS 11/17/17 10/13/20 History Gabapentin [Neurontin] 300 mg PO BID PRN 08/27/18 10/13/20 History Cholecalciferol [Vitamin D3 (25 100 mcg PO DAILY 07/15/20 10/13/20 History Mcg = 1000 Iu)] Estrogen,Nancy/Me-Testosterone 1 tab PO DAILY 07/15/20 10/13/20 History [Eemt Hs 0.625-1.25 mg Tablet] Fish Oil/Dha/Epa [Fish Oil 1,200 1 cap PO BID 07/15/20 10/13/20 History mg Fish Oil] Folic Acid 0.8 mg PO DAILY 07/15/20 10/13/20 History Hydroxychloroquine Sulfate 300 mg PO HS 07/15/20 10/13/20 History [Plaquenil] Levothyroxine Sodium 25 mcg PO DAILY 07/15/20 10/13/20 History SUMAtriptan SUCCINATE [Imitrex] 25 mg PO BID PRN 07/15/20 10/13/20 History Turmeric Root Extract [Turmeric] 1,000 mg PO DAILY 07/15/20 10/13/20 History Meloxicam [Mobic] 15 mg PO DAILY 08/04/20 10/13/20 History cycloSPORINE 0.05% OPHTH SOLN 1 applicator BOTH EYES Q12H 08/04/20 10/13/20 History [Restasis] Acetaminophen [Tylenol] 650 mg PO Q4H PRN #30 tab 08/07/20 10/13/20 Rx Allergies Allergy/AdvReac Type Severity Reaction Status Date / Time ciprofloxacin Allergy Rash/Hives Verified 10/13/20 08:34 grass pollen Allergy Dyspnea Verified 10/13/20 08:34 tree and shrub pollen Allergy Dyspnea Verified 10/13/20 08:34 shellfish derived [Shellfish] AdvReac Nausea & Verified 10/13/20 08:34 Vomiting
[~2020-10-14 08:45] MED LIST changes: +LACTATED RINGERS 1,000 ML IV SCH; +LIDOCAINE 1% (10MG/ML) FOR IV START INTRADERMA PRN; -Pre Op ABX Message 1 EACH MISC MISCELLANE ONE
[2020-10-14 09:22] VITALS: TEMP 97.2
[2020-10-14] MEDS ORDERED: ONDANSETRON 4 MG/2 ML VIAL IVP STA (09:29)
[2020-10-14] MEDS ORDERED: PROPOFOL 10 MG/ML 20 ML VIAL IV ONE (10:25)
[2020-10-14] MEDS ORDERED: LIDOCAINE 1% INJ 10MG/ML (20 ML MDV) ONE (10:25)
--- NOTE | 2020-10-14 10:47 | P.PCN ---
Date of Procedure: 10/14/20 Description of Procedure: PREOPERATIVE DIAGNOSIS: Gastroesophageal reflux disease. Epigastric abdominal pressure Hiatal hernia POSTOPERATIVE DIAGNOSIS: Gastroesophageal reflux disease. Gastric polyp Gastritis OPERATION: Esophagogastroduodenoscopy with biopsies along antrum. SURGEON: Alysha Gallo MD ANESTHESIA: MAC. INDICATIONS: The patient is a 75-year-old female who presents with a history of reflux disease. Benefits and risks of the procedure were described. Informed consent was obtained. DESCRIPTION: The patient was brought into the endoscopy suite and laid in the left lateral decubitus position. An Olympus gastroscope was passed along the posterior oropharynx down to the distal esophagus where the squamocolumnar junction was encountered at 37 cm from the incisors. The stomach was entered and no bile reflux was found. Additional findings are listed below. Biopsies with cold forceps were obtained of the antrum. The first through third portion of the duodenum was examined and unremarkable. Retroflexion of the scope confirmed Hill grade 2 lower esophageal valve. The squamocolumnar junction demonstrated no LA grade A erosive esophagitis. The stomach was desufflated. The patient tolerated the procedure well. FINDINGS: Squamocolumnar junction 37 cm from the incisors. Diaphragmatic hiatus at 37 cm. Hill grade 2 lower esophageal valve. No LA grade A erosive esophagitis. No active duodenitis. Chronic gastritis Gastric polyps RECOMMENDATIONS: Upper endoscopy as needed. Plan - Discharge Summary Discharge Rx Participant: Yes New Discharge Prescriptions: Continue Omeprazole [PriLOSEC] 40 mg PO DAILY cloNIDine HCL [Catapres] 0.1 mg PO HS Simvastatin [Zocor] 20 mg PO HS Escitalopram Oxalate [Lexapro] 10 mg PO HS Montelukast [Singulair] 10 mg PO DAILY Gabapentin [Neurontin] 300 mg PO BID PRN PRN Reason: Pain Cholecalciferol [Vitamin D3 (25 Mcg = 1000 Iu)] 100 mcg PO DAILY Estrogen,Nancy/Me-Testosterone [Eemt Hs 0.625-1.25 mg Tablet] 1 tab PO DAILY Fish Oil/Dha/Epa [Fish Oil 1,200 mg Fish Oil] 1 cap PO BID Folic Acid 0.8 mg PO DAILY Hydroxychloroquine Sulfate [Plaquenil] 300 mg PO HS Levothyroxine Sodium 25 mcg PO DAILY SUMAtriptan SUCCINATE [Imitrex] 25 mg PO BID PRN PRN Reason: Migraine Headache Turmeric Root Extract [Turmeric] 1,000 mg PO DAILY cycloSPORINE 0.05% OPHTH SOLN [Restasis] 1 applicator BOTH EYES Q12H Meloxicam [Mobic] 15 mg PO DAILY Acetaminophen [Tylenol] 650 mg PO Q4H PRN #30 tab PRN Reason: Pain Discharge Medication List Escitalopram Oxalate [Lexapro] 10 mg PO HS 11/17/17 [History] Montelukast [Singulair] 10 mg PO DAILY 11/17/17 [History] Omeprazole [PriLOSEC] 40 mg PO DAILY 11/17/17 [History] Simvastatin [Zocor] 20 mg PO HS 11/17/17 [History] cloNIDine HCL [Catapres] 0.1 mg PO HS 11/17/17 [History] Gabapentin [Neurontin] 300 mg PO BID PRN 08/27/18 [History] Cholecalciferol [Vitamin D3 (25 Mcg = 1000 Iu)] 100 mcg PO DAILY 07/15/20 [History] Estrogen,Nancy/Me-Testosterone [Eemt Hs 0.625-1.25 mg Tablet] 1 tab PO DAILY 07/15/20 [History] Fish Oil/Dha/Epa [Fish Oil 1,200 mg Fish Oil] 1 cap PO BID 07/15/20 [History] Folic Acid 0.8 mg PO DAILY 07/15/20 [History] Hydroxychloroquine Sulfate [Plaquenil] 300 mg PO HS 07/15/20 [History] Levothyroxine Sodium 25 mcg PO DAILY 07/15/20 [History] SUMAtriptan SUCCINATE [Imitrex] 25 mg PO BID PRN 07/15/20 [History] Turmeric Root Extract [Turmeric] 1,000 mg PO DAILY 07/15/20 [History] Meloxicam [Mobic] 15 mg PO DAILY 08/04/20 [History] cycloSPORINE 0.05% OPHTH SOLN [Restasis] 1 applicator BOTH EYES Q12H 08/04/20 [History] Acetaminophen [Tylenol] 650 mg PO Q4H PRN #30 tab 08/07/20 [Rx] Follow up Appointment(s)/Referral(s): Alysha Gallo MD [STAFF PHYSICIAN] - 10/27/20 Patient Instructions/Handouts: Gastritis (DC) Discharge Disposition: HOME SELF-CARE
[2020-10-14 10:53] VITALS: RESP 16
[2020-10-14 11:16] VITALS: BP 124/76; PULSE 80
== END 2020-10-14 11:25 | disposition home or self-care (01) ==
LOC: ORWHC2ENDO 08:45
PROVIDERS: ATTEND Surgery Plastic and Reconstructive Surgery
DX: K21.9 Gastro-esophageal reflux disease without esophagitis (principal); K29.50 Unspecified chronic gastritis without bleeding; K31.7 Polyp of stomach and duodenum; K44.9 Diaphragmatic hernia without obstruction or gangrene; E78.5 Hyperlipidemia, unspecified; I10 Essential (primary) hypertension; M19.90 Unspecified osteoarthritis, unspecified site; E07.9 Disorder of thyroid, unspecified; Z85.828 Personal history of other malignant neoplasm of skin; Z90.49 Acquired absence of other specified parts of digestive tract; Z90.710 Acquired absence of both cervix and uterus; Z87.891 Personal history of nicotine dependence; Z82.61 Family history of arthritis; Z80.9 Family history of malignant neoplasm, unspecified; Z79.899 Other long term (current) drug therapy; Z79.890 Hormone replacement therapy; Z79.1 Long term (current) use of non-steroidal anti-inflammatories (NSAID); Z88.2 Allergy status to sulfonamides; Z88.8 Allergy status to other drugs, medicaments and biological substances; Z88.1 Allergy status to other antibiotic agents; Z91.013 Allergy to seafood
CPT/HCPCS: 88305; 43239; J2405; J2001; J2704

== ENCOUNTER → 2020-10-20 | Outpatient (CLI) | payer MEDICARE, BC ==
--- NOTE | 2020-10-20 10:18 | FL ---
ESOPHOGRAM. HISTORY: Dysphagia Esophagram was performed per the air contrast technique. The patient swallowed barium and effervesce nt crystals without difficulty or delay. Esophageal peristalsis and motility appear to be within normal limits. There is no evidence for filling defect, mass or diverticulum. Small sliding-type hiatal hernia noted. Subsequently single contrast cervical esophagram was performed which fails demonstrate evidence for a spiration penetration or mass. Posterior mass effect from ventral spurs at C4-5 and C5-6. IMPRESSION: 1. Small sliding-type hiatal hernia. 2.Posterior mass effect from ventral spurs at C4-5 and C5-6.
== END | disposition home or self-care (01) ==
LOC: RADFLMAIN 09:18
PROVIDERS: ATTEND Surgery Plastic and Reconstructive Surgery
DX: K44.9 Diaphragmatic hernia without obstruction or gangrene (principal)
CPT/HCPCS: 74220

== ENCOUNTER → 2020-10-23 | Outpatient (CLI) | payer MEDICARE, BC ==
[2020-10-26 11:44] LABS: Crab IgE <0.10 kU/L (<0.10); Crab IgE Class CLASS 0
[2020-10-26 11:45] LABS: Lobster IgE <0.10 kU/L (<0.10); Lobster IgE Class CLASS 0
== END | disposition home or self-care (01) ==
LOC: LABWHC1 12:02
PROVIDERS: ATTEND Internal Medicine
DX: L50.9 Urticaria, unspecified (principal)
CPT/HCPCS: 36415; 86003

== ENCOUNTER → 2020-11-13 | Outpatient (CLI) | payer MEDICARE, BC ==
[2020-11-13 14:25] LABS: Basophils % (A) 0 %; Eosinophils # (A) 0.1 k/uL (0-0.7); Eosinophils % (A) 1 %; HCT 36.2 % (34.0-46.0); HGB 12.9 gm/dL (11.4-16.0); Lymphocytes # (A) 1.2 k/uL (1.0-4.8); Lymphocytes % (A) 15 %; MCH 34.9 pg (25.0-35.0); MCHC 35.6 g/dL (31.0-37.0); MCV 97.9 fL (80.0-100.0); Mean Platelet Volume 7.7; Monocytes # (A) 0.5 k/uL (0-1.0); Monocytes % (A) 6 %; Neutrophils # (A) 6.4 k/uL (1.3-7.7); Neutrophils % (A) 77 %; Platelet Count 211 k/uL (150-450); RBC 3.69 m/uL (3.80-5.40); RDW 12.7 % (11.5-15.5); WBC 8.2 k/uL (3.8-10.6)
== END | disposition home or self-care (01) ==
LOC: LABPAT 13:28
PROVIDERS: ATTEND Surgery Plastic and Reconstructive Surgery
DX: Z01.818 Encounter for other preprocedural examination (principal)
CPT/HCPCS: 85025

== ENCOUNTER 2020-11-23 08:14 | Observation (INO) | payer MEDICARE, BC ==
--- NOTE | 2020-11-23 08:09 | P.GSHP ---
History of Present Illness H&P Date: 11/23/20 CHIEF COMPLAINT: Paraesophageal hiatal hernia with gastroesophageal reflux disease. HISTORY OF PRESENT ILLNESS: The patient is a 75-year-old female who presents with paraesophageal hiatal hernia. She has completed endoscopy workup. Now she presents for surgical intervention. PAST MEDICAL HISTORY: Please see list. PAST SURGICAL HISTORY: Please see list. MEDICATIONS: Please see list. ALLERGIES: Please see list. SOCIAL HISTORY: No illicit drug use FAMILY HISTORY: No reports of Crohn disease or ulcerative colitis. REVIEW OF ORGAN SYSTEMS: CONSTITUTIONAL: No reports of fevers or chills. GI: Denies any blood in stools or constipation. PHYSICAL EXAM: VITAL SIGNS: Stable GENERAL: Well-developed pleasant and in no acute distress. HEENT: No scleral icterus. Extraocular movements grossly intact. Moist buccal mucosa. NECK: Supple without lymphadenopathy. CHEST: Unlabored respirations. Equal bilateral excursions. CARDIOVASCULAR: Regular rate and rhythm. Distal 2+ pulses. ABDOMEN: Soft, nondistended. No peritoneal signs. MUSCULOSKELETAL: No clubbing, cyanosis, or edema. SKIN: Well-perfused. Good skin turgor. ASSESSMENT: 1. Diaphragmatic paraesophageal hiatal hernia with severe gastroesophageal reflux disease. PLAN: 1. Recommend proceeding with a robotic paraesophageal hiatal hernia with possible mesh. 2. Benefits and risks of surgical intervention was discussed including possibility of open technique. 3. Inpatient hospitalization recommended of 2 nights 4. DVT prophylaxis. 5. Antibiotic prophylaxis. 6. She has also completed a very low caloric high-protein diet to address underlying hepatomegaly. Past Medical History Past Medical History: Cancer, Deep Vein Thrombosis (DVT), GERD/Reflux, Hyperlipidemia, Hypertension, Osteoarthritis (OA), Thyroid Disorder Additional Past Medical History / Comment(s): hx of small bowel obstruction, skin cancer on face. migraines, hiatal hernia, IBS, History of Any Multi-Drug Resistant Organisms: None Reported Past Surgical History: Adenoidectomy, Appendectomy, Back Surgery, Bowel Resection, Cholecystectomy, Hysterectomy, Orthopedic Surgery, Tonsillectomy Additional Past Surgical History / Comment(s): partial thyroidectomy, rt foot plate and screws, rt knee arthroscopy x 2, DEVIATED nasal SEPTUM REPAIR, lysis of adhesions, removal of cancer from face, laminectomy/fusion Past Anesthesia/Blood Transfusion Reactions: Motion Sickness, Postoperative Nausea & Vomiting (PONV) Past Psychological History: Anxiety Smoking Status: Former smoker Past Alcohol Use History: Occasional Additional Past Alcohol Use History / Comment(s): social smoker quit 52 years ago, < 1 yr Past Drug Use History: None Reported - Past Family History Father Family Medical History: Cancer Additional Family Medical History / Comment(s): lung cancer Mother Family Medical History: Osteoarthritis (OA) Brother(s) Family Medical History: Cancer Medications and Allergies Home Medications Medication Instructions Recorded Confirmed Type Escitalopram Oxalate [Lexapro] 10 mg PO HS 11/17/17 11/13/20 History Montelukast [Singulair] 10 mg PO HS 11/17/17 11/13/20 History Omeprazole [PriLOSEC] 40 mg PO DAILY 11/17/17 11/13/20 History Simvastatin [Zocor] 20 mg PO HS 11/17/17 11/13/20 History Gabapentin [Neurontin] 300 mg PO BID 08/27/18 11/13/20 History Cholecalciferol [Vitamin D3 (25 50 mcg PO DAILY 07/15/20 11/13/20 History Mcg = 1000 Iu)] Estrogen,Nancy/Me-Testosterone 1 tab PO DAILY 07/15/20 11/13/20 History [Eemt Hs 0.625-1.25 mg Tablet] Fish Oil/Dha/Epa [Fish Oil 1,200 1 cap PO BID 07/15/20 11/13/20 History mg Fish Oil] Folic Acid 0.8 mg PO DAILY 07/15/20 11/13/20 History Hydroxychloroquine Sulfate 300 mg PO DAILY 07/15/20 11/13/20 History [Plaquenil] Levothyroxine Sodium 25 mcg PO DAILY 07/15/20 11/13/20 History SUMAtriptan SUCCINATE [Imitrex] 25 mg PO BID PRN 07/15/20 11/13/20 History Turmeric Root Extract [Turmeric] 1,000 mg PO DAILY 07/15/20 11/13/20 History Meloxicam [Mobic] 15 mg PO DAILY 08/04/20 11/13/20 History cycloSPORINE 0.05% OPHTH SOLN 1 applicator BOTH EYES BID 08/04/20 11/13/20 History [Restasis] Aspirin/Acetaminophen/Caffeine 1 each PO DIRECTED PRN 11/13/20 11/13/20 History [Excedrin Migraine Caplet] Pilocarpine [Salagen] 5 mg PO BID 11/13/20 11/13/20 History Allergies Allergy/AdvReac Type Severity Reaction Status Date / Time ciprofloxacin Allergy Rash/Hives Verified 11/13/20 08:13 grass pollen Allergy Dyspnea Verified 11/13/20 08:13 tree and shrub pollen Allergy Dyspnea Verified 11/13/20 08:13 shellfish derived [Shellfish] AdvReac Nausea & Verified 11/13/20 08:13 Vomiting
[~2020-11-23 08:14] MED LIST changes: +CHLORHEXIDINE GLUCONATE 15 ML CUP MUCOUS MEM PRN; +DEXAMETHASONE SOD PHOSPHATE 4 MG/ML 1 ML VIAL IV ONE; +HEPARIN SODIUM,PORCINE/PF 5,000 UNIT/0.5 ML SYRINGE SQ PRN; +HYDROmorphone 0.5 MG/0.5 ML SYRINGE IVP PRN; -LIDOCAINE 1% (10MG/ML) FOR IV START INTRADERMA PRN; +ONDANSETRON 4 MG/2 ML VIAL IVP ONE; +PANTOPRAZOLE 40 MG/10 ML VIAL IVP PRN; +ceFAZolin 3 GM in SODIUM CHLORIDE 0.9% 100 ML IVPB PRN
[2020-11-23] MEDS ORDERED: LACTATED RINGERS 1,000 ML IV ONE ×2 (08:51→11:27)
[2020-11-23] MEDS ORDERED: SODIUM CHLORIDE 0.9% (PF) 10 ML VIAL ONE (09:37)
[2020-11-23] MEDS ORDERED: NEOSTIGMINE 1 MG/ML 10 ML VIAL ONE (09:37)
[2020-11-23] MEDS ORDERED: SUCCINYLCHOLINE CHLORIDE 100 MG/5 ML SYR IV ONE (09:37)
[2020-11-23] MEDS ORDERED: fentaNYL (PF) 50 MCG/ML 2 ML AMP ONE (09:37)
[2020-11-23] MEDS ORDERED: LIDOCAINE 1% INJ 10MG/ML (20 ML MDV) ONE (09:37)
[2020-11-23] MEDS ORDERED: ROCURONIUM 10 MG/ML (5 ML VIAL) IV ONE (09:37)
[2020-11-23] MEDS ORDERED: GLYCOPYRROLATE 0.2 MG/ML 2 ML VIAL ONE (09:37)
[2020-11-23] MEDS ORDERED: MIDAZOLAM 2 MG/2 ML VIAL ONE (09:37)
[2020-11-23] MEDS ORDERED: ePHEDrine SULFATE/0.9% NACL/PF 50 MG/5 ML SYRINGE IV ONE (09:37)
[2020-11-23] MEDS ORDERED: PROPOFOL 10 MG/ML 20 ML VIAL IV ONE (09:37)
[2020-11-23 09:58] LABS: ALT 33 U/L (4-34); AST 35 U/L (14-36); African American GFR (CKD) >90 (>60 ml/min/1.73 sqM); Albumin 4.5 g/dL (3.5-5.0); Alkaline Phosphatase 34 U/L (38-126); Anion Gap 7 mmol/L; Blood Urea Nitrogen 22 mg/dL (7-17); Calcium 10.1 mg/dL (8.4-10.2); Carbon Dioxide 26 mmol/L (22-30); Chloride 106 mmol/L (98-107); Glucose 86 mg/dL (74-99); Non-African American GFR(CKD) 86 (>60 ml/min/1.73 sqM); Sodium 139 mmol/L (137-145); Total Bilirubin 0.4 mg/dL (0.2-1.3); Total Protein 7.2 g/dL (6.3-8.2)
[2020-11-23] MEDS ORDERED: LIDOCAINE 1%-EPI 1:100,000 20 ML VIAL SQ ONE (10:21)
[2020-11-23] MEDS ORDERED: ONDANSETRON 4 MG/2 ML VIAL IVP PRN (11:56)
[2020-11-23] MEDS ORDERED: HYDROmorphone 1 MG/ML 1 ML SYRINGE IVP PRN (11:56)
[2020-11-23] MEDS ORDERED: NALOXONE 0.4 MG/ML 1 ML VIAL IV PRN (11:57)
[2020-11-23] MEDS ORDERED: diphenhydrAMINE 50 MG/ML 1 ML VIAL IVP PRN (11:57)
[2020-11-23] MEDS ORDERED: SUMAtriptan succinate 25 MG TAB PO PRN (12:04)
[2020-11-23] MEDS ORDERED: DEXAMETHASONE SOD PHOSPHATE 10 MG/ML 1 ML VIAL IV PRN (12:30)
--- NOTE | 2020-11-23 12:35 | P.OP ---
Date of Procedure: 11/23/20 Description of Procedure: SURGEON: KIKI FAIRCHILD MD PREOPERATIVE DIAGNOSES: 1. Symptomatic paraesophageal diaphragmatic hiatal hernia. 2. Gastroesophageal reflux disease. 3. Hypertensive heart disease 4. Generalized anxiety disorder 5. Rheumatoid arthritis 6. Motion sickness 8. Postop nausea vomiting 9. Hyperlipidemia 10. History of small bowel obstruction 11. History of DVT 12. Hypothyroidism POSTOPERATIVE DIAGNOSES: 1. Paraesophageal midline diaphragmatic hernia, 5 cm, without incarceration. 2. Gastroesophageal reflux disease. 3. Hypertensive heart disease 4. Generalized anxiety disorder 5. Rheumatoid arthritis 6. Motion sickness 8. Postop nausea vomiting 9. Hyperlipidemia 10. History of small bowel obstruction 11. History of DVT 12. Hypothyroidism OPERATION: 1. Robotic-assisted da Martha Xi laparoscopic repair of paraesophageal hiatal hernia, 5 x 4 cm, with [place] Biopatch A 8 x 8 cm. 2. Intraoperative esophagogastroduodenoscopy 3. Placement of 56-Uzbek bougie for esophageal dysmotility ANESTHESIA: General with local anesthetic. ESTIMATED BLOOD LOSS: 5 mL SPECIMENS REMOVED: None COMPLICATIONS: None. Condition: stable Disposition: floor FINDINGS: 1. Midline incarcerated paraesophageal hiatal hernia 5 x 4 cm 2. Intraoperative upper endoscopy confirms complete closure of hiatal hernia from Hill grade 3 to Hill grade 1 3. Intraesophageal length over 2 cm INDICATIONS: The patient is a 75-year-old female who presents with symptomatic diaphragmatic hiatal hernia including gastric septa reflux disease, dysphagia. Preoperative workup including upper endoscopy demonstrated a sliding hiatal hernia. The patient completed an esophageal manometry. Given the severity of symptoms, the patient had elected for surgical intervention. Benefits and risks including bleeding, infection, recurrence, dysphagia, injury to the lung, need for further surgery was described at length. Informed consent was obtained. DESCRIPTION: The patient was brought into the operating room and placed in supine position. Preoperatively the patient had received heparin subcutaneously for DVT prophylaxis. After general induction, the abdomen was prepped and draped in standard sterile fashion. The patient had previously voided prior to coming to the operating room. [place] draping was placed along the abdomen. A timeout protocol was confirmed with the surgical team, for which the patient's name, procedure to be performed including DVT prophylaxis with bilateral SCDs, and preoperative antibiotics were also confirmed. A robotic da Martha Xi system was prepped and primed. At 11 cm from the xiphoid to just below the umbilicus, proposed port sites were marked with indelible marker along the left axillary line, left mid-clavicular line with each ports were marked 10 cm from each other. A 5 mm 0 degrees laparoscopic trocar entry was performed along the left upper quadrant. The abdomen was insufflated to 15 mmHg pressure was tolerated well. Diagnostic laparoscopy demonstrated no injury to bowel, viscera, or mesentery. No injury had occurred to the small bowel or viscera. The liver was smooth consistent with two-week high-protein low-carb diet. Previous trochar sites from cholecystectomy were used. Next, one 8 mm robotic port was placed along the right upper abdomen. An 8-mm port was were placed along the right lateral lateral abdominal wall. The camera 8-mm port was maintained along the epigastrium. Another 12 mm port was placed along the left upper abdominal wall after exchanging the 5 mm port. Please note that the ports were placed at least 20 cm away from the target anatomy. Care was taken to check that each robotic arm were safely away from collision with the bed or the patient. At the epigastrium, a medium sized Jamison liver retractor was placed under direct visualization with the [employer] placed under the right shoulder of the patient. All robotic arms were used. The patient was repositioned in reverse Trendelenburg position at 21-degrees after lowering the bed. The robot was docked above the right side of the patient. Using a grasper for arm 3, a grasper for arm 1, including vessel sealer for arm 2, the robotic system was docked and primed as described. Instruments were interchanged by the print shop assistant. I had sat at the console. Attention was brought to the falciform ligament which was bulky and obscuring the surgical field. The falciform ligament was mobilized to this xiphoid process. The gastrohepatic ligament was cleaved using a vessel sealer. Next, the phrenoesophageal ligament was mobilized and the distal esophagus was mobilized circumferentially. The left and right c rura was identified. Circumferentially, the hernia sac was excised and brought into the peritoneal cavity. Moderate dissection into the mediastinum was performed to release the esophagus into the abdominal cavity. The paraesophageal hiatal hernia sac was also incised and divided from the esophagus. Care was taken to avoid any gastrotomy. The measured defect was consistent with 5 cm axial length and 4 cm in width. After dissection, the distal esophagus of 2+ cm was brought into the abdominal cavity. Once the hiatus and crura was dissected, 2-0 VLOC nonabsorbable suture was placed to reapproximate the diaphragmatic hiatus posteriorly. To buttress the repair, a [place] Biopatch A was prepared along the back table and cut in half of a muñoz-hole fashion as to reinforce the repair as an underlay. The mesh was placed along the crural repair and tagged using horizontal mattress sutures using 2-0 VLOC. I went to the head of the bed to perform intraoperative esophagogastroduodenoscopy and placement of a 56Fr bougie. The bougie was passed along the posterior oropharynx into the stomach to address pre-existing esophageal dysmotility for 2 minutes then removed. An Olympus gastroscope was passed through posterior oropharynx. Retroflexion of the scope confirmed a Hill grade 1 lower esophageal valve. No acute gastric ulcers were found. The stomach had been desufflated. No evidence of leaks were found of the esophagus or stomach. The GI tract with desufflated This concluded the endoscopic portion of the case. The robot was undocked from the patient. I re-scrubbed into the case. All instruments and pneumoperitoneum and specimens were evacuated from the abdominal cavity. Incisions were reapproximated using 4-0 Monocryl in an interrupted subcuticular fashion. Liquid glue was applied to the skin. Local anesthetic was infiltrated in all wounds for postop analgesia. At the end of the procedure, needle, sponge, and instrument count was verified correct by the surgical services assistant. The patient had tolerated the procedure well and was taken to the postanesthesia unit in stable condition.
[2020-11-23] MEDS: SIMETHICONE 40 MG/0.6 ML DROPS 2,000 MG/30 ML BOTTLE PO SCH ×2 (14:18→18:16)
[2020-11-23] MEDS: ACETAMINOPHEN IV (For NPO) 650 MG in EMPTY BAG 1 BAG IVPB SCH ×2 (14:19→20:37)
[2020-11-23] MEDS: KETOROLAC 15 MG/ML 1 ML VIAL IVP SCH ×2 (14:21→20:39)
[2020-11-23] MEDS: DEXAMETHASONE SOD PHOSPHATE 4 MG/ML 1 ML VIAL IV SCH ×2 (15:36→20:38)
--- NOTE | 2020-11-23 15:54 | FL ---
SINGLE CONTRAST ESOPHAGRAM: CLINICAL HISTORY: 75-year-old female status post hiatal hernia repair today, rule out leak or obstruc tion. TECHNIQUE: Single contrast exam performed with 40 ml Isovue-370 contrast. Total fluoroscopy time: 1 minute 13 seconds. Total images: 15. COMPARISON: 10/20/2020 FINDINGS: The patient swallowed oral contrast without difficulty or delay. Esophageal peristalsis and motility are within normal limits. Postsurgical change at the GE junction with mild hesitancy in passage of c ontrast from the distal esophagus into the stomach. Mild narrowing is present, likely postoperative e melo. There is no evidence of contrast extravasation to suggest leak. No postsurgical free air identi fied. IMPRESSION: Hesitancy in passage of contrast from the distal esophagus into the stomach suggests mild narrowing l ikely from postsurgical edema. No evidence of leak status post hiatal hernia repair today.
[2020-11-23] MEDS: 0.9% NACL WITH KCL 20 MEQ/L 1,000 ML IV SCH (18:12)
[2020-11-23] MEDS: cycloSPORINE 0.05% OPHTH 0.4 ML DROPERETTE BOTH EYES SCH (20:38)
[2020-11-23] MEDS: GABAPENTIN 300 MG CAP PO SCH (20:39)
[2020-11-23] MEDS: PILOCARPINE 5 MG TAB PO SCH (20:39)
[2020-11-23] MEDS ORDERED: MONTELUKAST 10 MG TAB PO SCH (21:00)
[2020-11-23] MEDS ORDERED: ESCITALOPRAM 10 MG TAB PO SCH (21:00)
[2020-11-23 21:48] VITALS: RESP 18
[2020-11-24] MEDS: KETOROLAC 15 MG/ML 1 ML VIAL IVP SCH ×3 (01:14→12:11)
[2020-11-24] MEDS: SIMETHICONE 40 MG/0.6 ML DROPS 2,000 MG/30 ML BOTTLE PO SCH ×3 (01:14→12:09)
[2020-11-24] MEDS: DEXAMETHASONE SOD PHOSPHATE 4 MG/ML 1 ML VIAL IV SCH ×3 (01:14→14:53)
[2020-11-24] MEDS: ACETAMINOPHEN IV (For NPO) 650 MG in EMPTY BAG 1 BAG IVPB SCH ×2 (02:03→08:55)
[2020-11-24] MEDS: 0.9% NACL WITH KCL 20 MEQ/L 1,000 ML IV SCH (05:16)
[2020-11-24 05:34] LABS: Basophils % (A) 0 %; Eosinophils % (A) 0 %; HCT 38.5 % (34.0-46.0); HGB 12.7 gm/dL (11.4-16.0); Lymphocytes # (A) 0.3 k/uL (1.0-4.8); Lymphocytes % (A) 4 %; MCH 33.1 pg (25.0-35.0); MCHC 33.1 g/dL (31.0-37.0); MCV 100.1 fL (80.0-100.0); Macrocytosis Slight; Mean Platelet Volume 7.6; Monocytes # (A) 0.2 k/uL (0-1.0); Monocytes % (A) 2 %; Neutrophils # (A) 8.1 k/uL (1.3-7.7); Neutrophils % (A) 94 %; Platelet Count 223 k/uL (150-450); RBC 3.84 m/uL (3.80-5.40); RDW 14.2 % (11.5-15.5); WBC 8.6 k/uL (3.8-10.6)
[2020-11-24 05:49] LABS: African American GFR (CKD) >90 (>60 ml/min/1.73 sqM); Anion Gap 6 mmol/L; Blood Urea Nitrogen 11 mg/dL (7-17); Calcium 8.8 mg/dL (8.4-10.2); Carbon Dioxide 24 mmol/L (22-30); Chloride 107 mmol/L (98-107); Magnesium 1.9 mg/dL (1.6-2.3); Non-African American GFR(CKD) >90 (>60 ml/min/1.73 sqM); Phosphorus 2.1 mg/dL (2.5-4.5); Potassium 4.3 mmol/L (3.5-5.1); Sodium 137 mmol/L (137-145)
[2020-11-24] MEDS ORDERED: LEVOTHYROXINE 25 MCG TAB PO SCH (06:30)
[2020-11-24] MEDS ORDERED: 1: MVI, ADULT NO.4 WITH VIT K 10 ML, THIAMINE 100 MG, FOLIC ACID 1 MG, POTASSIUM CHLORID IV SCH ×6 (08:00)
[2020-11-24] MEDS: PILOCARPINE 5 MG TAB PO SCH (08:56)
[2020-11-24] MEDS: cycloSPORINE 0.05% OPHTH 0.4 ML DROPERETTE BOTH EYES SCH (08:57)
[2020-11-24] MEDS: GABAPENTIN 300 MG CAP PO SCH (08:59)
[2020-11-24] MEDS ORDERED: [UNRECOGNIZED DRUG - OTHER] PO SCH (09:00)
[2020-11-24] MEDS ORDERED: PANTOPRAZOLE 40 MG/10 ML VIAL IV SCH (09:00)
[2020-11-24] MEDS ORDERED: NON FORMULARY DRUG (Folic Acid [Folic Acid] 0.8 MG Capsule) PO SCH (09:00)
[2020-11-24] MEDS ORDERED: ENOXAPARIN 30 MG/0.3 ML SYRINGE SQ SCH (09:00)
[2020-11-24] MEDS ORDERED: HYDROXYCHLOROQUINE SULFATE 200 MG TAB PO SCH (09:00)
[2020-11-24] MEDS ORDERED: ESTROGEN ESTER PO SCH (09:00)
[2020-11-24] MEDS ORDERED: TESTOSTERONE PO SCH (09:00)
[2020-11-24 12:52] VITALS: BMI 22.6
[2020-11-24 16:31] VITALS: BP 118/66; PULSE 74; TEMP 98.3
--- NOTE | 2020-11-24 18:26 | P.DS ---
Providers Date of admission: 11/23/20 11:56 Expected date of discharge: 11/24/20 Attending physician: Alysha Gallo Primary care physician: Vicente De Leon - Discharge Diagnosis(es) (1) Paraesophageal hiatal hernia Status: Acute (2) Esophageal dyskinesia Status: Acute (3) Gastroesophageal reflux disease Status: Acute Hospital Course: POSTOPERATIVE DIAGNOSES: 1. Paraesophageal midline diaphragmatic hernia, 5 cm, without incarceration. 2. Gastroesophageal reflux disease. 3. Hypertensive heart disease 4. Generalized anxiety disorder 5. Rheumatoid arthritis 6. Motion sickness 8. Postop nausea vomiting 9. Hyperlipidemia 10. History of small bowel obstruction 11. History of DVT 12. Hypothyroidism COURSE: The patient is a 75-year-old female who presents with symptomatic diaphragmatic hiatal hernia including gastroesophageal disease, dysphagia. Preoperative workup including upper endoscopy demonstrated a sliding hiatal hernia. She underwent hiatal hernia repair without sequelae. Her reflux had resolved. She denied dysphagia. She was tolerating diet. Discharge instructions including dietary restrictions were reviewed in detail. Follow-up in the bariatric center in 1 week. Procedures: OPERATION: 1. Robotic-assisted da Martha Xi laparoscopic repair of paraesophageal hiatal hernia, 5 x 4 cm, with [place] Biopatch A 8 x 8 cm. 2. Intraoperative esophagogastroduodenoscopy 3. Placement of 56-Kosovan bougie for esophageal dysmotility ANESTHESIA: General with local anesthetic. ESTIMATED BLOOD LOSS: 5 mL SPECIMENS REMOVED: None COMPLICATIONS: None. Condition: stable Disposition: floor FINDINGS: 1. Midline incarcerated paraesophageal hiatal hernia 5 x 4 cm 2. Intraoperative upper endoscopy confirms complete closure of hiatal hernia from Hill grade 3 to Hill grade 1 3. Intraesophageal length over 2 cm Patient Condition at Discharge: Good Plan - Discharge Summary Discharge Rx Participant: Yes New Discharge Prescriptions: New bisacodyL [Dulcolax] 5 mg PO DAILY PRN #10 tablet.dr PRN Reason: Constipation Simethicone 40 mg/0.6 ml Drops [Mylicon Drops] 40 mg PO PCHS PRN #30 ml PRN Reason: Gas Continue Simvastatin [Zocor] 20 mg PO HS Escitalopram Oxalate [Lexapro] 10 mg PO HS Montelukast [Singulair] 10 mg PO HS Gabapentin [Neurontin] 300 mg PO BID Cholecalciferol [Vitamin D3 (25 Mcg = 1000 Iu)] 50 mcg PO DAILY Estrogen,Nancy/Me-Testosterone [Eemt Hs 0.625-1.25 mg Tablet] 1 tab PO DAILY Fish Oil/Dha/Epa [Fish Oil 1,200 mg Fish Oil] 1 cap PO BID Folic Acid 0.8 mg PO DAILY Hydroxychloroquine Sulfate [Plaquenil] 300 mg PO DAILY Levothyroxine Sodium 25 mcg PO DAILY SUMAtriptan SUCCINATE [Imitrex] 25 mg PO BID PRN PRN Reason: Migraine Headache cycloSPORINE 0.05% OPHTH SOLN [Restasis] 1 applicator BOTH EYES BID Meloxicam [Mobic] 15 mg PO DAILY Pilocarpine [Salagen] 5 mg PO BID Aspirin/Acetaminophen/Caffeine [Excedrin Migraine Caplet] 1 each PO DIRECTED PRN PRN Reason: migraines Discontinued Omeprazole [PriLOSEC] 40 mg PO DAILY Turmeric Root Extract [Turmeric] 1,000 mg PO DAILY Discharge Medication List Escitalopram Oxalate [Lexapro] 10 mg PO HS 11/17/17 [History] Montelukast [Singulair] 10 mg PO HS 11/17/17 [History] Simvastatin [Zocor] 20 mg PO HS 11/17/17 [History] Gabapentin [Neurontin] 300 mg PO BID 08/27/18 [History] Cholecalciferol [Vitamin D3 (25 Mcg = 1000 Iu)] 50 mcg PO DAILY 07/15/20 [History] Estrogen,Nancy/Me-Testosterone [Eemt Hs 0.625-1.25 mg Tablet] 1 tab PO DAILY 07/15/20 [History] Fish Oil/Dha/Epa [Fish Oil 1,200 mg Fish Oil] 1 cap PO BID 07/15/20 [History] Folic Acid 0.8 mg PO DAILY 07/15/20 [History] Hydroxychloroquine Sulfate [Plaquenil] 300 mg PO DAILY 07/15/20 [History] Levothyroxine Sodium 25 mcg PO DAILY 07/15/20 [History] SUMAtriptan SUCCINATE [Imitrex] 25 mg PO BID PRN 07/15/20 [History] Meloxicam [Mobic] 15 mg PO DAILY 08/04/20 [History] cycloSPORINE 0.05% OPHTH SOLN [Restasis] 1 applicator BOTH EYES BID 08/04/20 [History] Aspirin/Acetaminophen/Caffeine [Excedrin Migraine Caplet] 1 each PO DIRECTED PRN 11/13/20 [History] Pilocarpine [Salagen] 5 mg PO BID 11/13/20 [History] Simethicone 40 mg/0.6 ml Drops [Mylicon Drops] 40 mg PO PCHS PRN #30 ml 11/24/20 [Rx] bisacodyL [Dulcolax] 5 mg PO DAILY PRN #10 tablet. 11/24/20 [Rx] Follow up Appointment(s)/Referral(s): Alysha Gallo MD [STAFF PHYSICIAN] - 12/01/20 11:00 am Patient Instructions/Handouts: Laparoscopic Hiatal Hernia Repair (DC) Activity/Diet/Wound Care/Special Instructions: Liquid diet only for 2 weeks until December 07 No lifting over 4 pounds in 4 weeks, December 23October shower No soaking in bath tubs for 2 weeks, December 07 Please notify your surgeon if you develop nausea and vomiting including new onset of abdominal pain. Please ambulate at all times. Use Simethicone, Gas-X, Tylenol and ibuprofen or Aleve scheduled for the next 24-48 hours for best pain relief. Use ice along incisions for the today to prevent swelling. Please open, cut, crush pills larger than the size of a tic tack No carbonated beverages. No straws. Do not remove scopolamine patch for 3 days, if present Avoiding Gas Avoid drinking through a straw. Do not chew gum or tobacco. These actions cause you to swallow air, which produces excess gas in your stomach. Chew with your mouth closed. Avoid any foods that cause stomach gas and distention. These foods include corn, dried beans, peas, lentils, onions, broccoli, cauliflower and any food from the cabbage family. Avoid carbonated drinks, alcohol, citrus and tomato products. Carbonated drinks (sodas) are not allowed for the first six to eight weeks after surgery. After this time you can try them again in small amounts Clear Liquid Diet The first diet after surgery is the clear liquid diet. It includes the following liquids: Apple juice Cranberry juice Grape juice Chicken broth Beef broth Flavored gelatin (Jell-O) Decaf tea and coffee Caffeinated beverages are permitted based on tolerance Popsicles Bahamian ice Full Liquid Diet The full liquid diet contains anything on the clear liquid diet, plus: Milk, soy, rice and almond (no chocolate) Cream of wheat, cream of rice, grits Strained creamed soups (no tomato or broccoli) Vanilla and strawberry-flavored ice cream Sherbet Blended, custard styled or whipped yogurt (plain or vanilla only) Vanilla and butterscotch pudding (no chocolate or coconut) Nutritional drinks including Ensure, Boost, [place] Instant Breakfast (no chocolate-flavored) Note: Dairy products, such as milk, ice cream and pudding, may cause diarrhea in some people just after surgery. You may need to avoid milk products. If so, substitute them with lactose-free beverages, such as soy, rice, Lactaid or almond milks.mmmm Discharge Disposition: HOME SELF-CARE
[2020-11-25] MEDS ORDERED: bisacodyL 5 MG TABLET.DR PO PRN (08:00)
[2020-11-25] MEDS ORDERED: ENOXAPARIN 40 MG/0.4 ML SYRINGE SQ SCH (09:00)
== END 2020-11-24 18:53 | disposition home or self-care (01) ==
LOC: OR 08:14 → 6PED 11:56
PROVIDERS: ADMIT Surgery Plastic and Reconstructive Surgery; ATTEND Surgery Plastic and Reconstructive Surgery
DX: K44.9 Diaphragmatic hernia without obstruction or gangrene (principal); K21.9 Gastro-esophageal reflux disease without esophagitis; I11.9 Hypertensive heart disease without heart failure; K22.4 Dyskinesia of esophagus; R16.0 Hepatomegaly, not elsewhere classified; G43.909 Migraine, unspecified, not intractable, without status migrainosus; K58.9 Irritable bowel syndrome, unspecified; E78.5 Hyperlipidemia, unspecified; E89.0 Postprocedural hypothyroidism; M06.9 Rheumatoid arthritis, unspecified; M19.90 Unspecified osteoarthritis, unspecified site; F41.1 Generalized anxiety disorder; Z79.890 Hormone replacement therapy; Z79.1 Long term (current) use of non-steroidal anti-inflammatories (NSAID); Z79.899 Other long term (current) drug therapy; Z88.1 Allergy status to other antibiotic agents; Z91.013 Allergy to seafood; Z91.048 Other nonmedicinal substance allergy status; Z85.828 Personal history of other malignant neoplasm of skin; Z87.891 Personal history of nicotine dependence; Z90.49 Acquired absence of other specified parts of digestive tract; Z98.1 Arthrodesis status; Z86.718 Personal history of other venous thrombosis and embolism; Z87.19 Personal history of other diseases of the digestive system; Z87.898 Personal history of other specified conditions; Z90.710 Acquired absence of both cervix and uterus; Z80.1 Family history of malignant neoplasm of trachea, bronchus and lung; Z82.61 Family history of arthritis
CPT/HCPCS: 43282; S2900; 74210; 80051; 80053; 82310; 82565; 83735; 84100; 84520; 85025

== ENCOUNTER → 2020-12-10 | Outpatient (CLI) | payer MEDICARE, BC ==
[2020-12-10 11:19] LABS: Basophils # (A) 0.05 X 10*3/uL (0.00-0.10); Eosinophils # (A) 0.16 X 10*3/uL (0.04-0.35); Eosinophils % (A) 3.3 %; HCT 40.3 % (37.2-46.3); HGB 13.4 g/dL (12.0-15.0); Lymphocytes # (A) 0.75 X 10*3/uL (0.90-5.00); Lymphocytes % (A) 15.3 %; MCH 33.8 pg (27.0-32.0); MCHC 33.3 g/dL (32.0-37.0); MCV 101.5 fL (80.0-97.0); Mean Platelet Volume 11.1 fL (9.5-12.2); Monocytes # (A) 0.48 X 10*3/uL (0.20-1.00); Monocytes % (A) 9.8 %; Neutrophils # (A) 3.44 X 10*3/uL (1.80-7.70); Neutrophils % (A) 70.2 %; Platelet Count 300 X 10*3/uL (140-440); RBC 3.97 X 10*6/uL (4.10-5.20); RDW 13.8 % (11.5-14.5)
[2020-12-10 15:14] LABS: Erythrocyte Sedimentation Rate 30 mm/Hr (0-30)
[2020-12-10 18:49] LABS: ALT 33 U/L (8-44); AST 27 U/L (13-35); African American GFR (CKD) 97.5 (60.0-200.0); Albumin/Globulin Ratio 2.15 (1.60-3.17); Alkaline Phosphatase 42 U/L (41-126); BUN/Creat Ratio 28.57 Ratio (12.00-20.00); C Reactive Protein <0.4 mg/dL (0.0-0.8); Calcium 9.3 mg/dL (8.7-10.3); Carbon Dioxide 25.4 mmol/L (21.6-31.8); Chloride 107 mmol/L (96-109); Cholesterol 145 mg/dL (0-200); Creatine Kinase 84 U/L (26-186); Glucose 94 mg/dL (70-110); LDL Cholesterol,Calculated 83.8 mg/dL (0.0-131.0); Non-African American GFR(CKD) 84.2 (60.0-200.0); Potassium 4.5 mmol/L (3.5-5.5); Sodium 141 mmol/L (135-145); Total Bilirubin 0.5 mg/dL (0.3-1.2); Total Protein 6.3 g/dL (6.2-8.2)
== END | disposition home or self-care (01) ==
LOC: LABWHC1 07:48
PROVIDERS: ATTEND Internal Medicine
DX: Z00.00 Encounter for general adult medical examination without abnormal findings (principal); D64.9 Anemia, unspecified; E87.8 Other disorders of electrolyte and fluid balance, not elsewhere classified; E78.5 Hyperlipidemia, unspecified; E11.65 Type 2 diabetes mellitus with hyperglycemia; E55.9 Vitamin D deficiency, unspecified; I10 Essential (primary) hypertension
CPT/HCPCS: 36415; 80053; 80061; 82306; 82550; 83735; 84439; 84443; 85025; 85652; 86140

== ENCOUNTER → 2021-02-18 | Outpatient (CLI) | payer MEDICARE, BC ==
--- NOTE | 2021-02-19 11:20 | MM ---
Reason for exam: screening (asymptomatic). Last mammogram was performed 1 year ago. History: Patient is postmenopausal and history of other cancer. Family history of breast cancer in paternal cousin at age 50. Benign stereotactic core biopsy of the right breast, August 25, 2003. Cyst aspiration of the left breast. Cyst aspiration of the right breast. Core biopsy of the right breast. Excisional biopsy of the left breast. Taking estrogen for 30 years beginning at age 42. Taking progesterone beginning at age 75. Physical Findings: A clinical breast exam by your physician is recommended on an annual basis and results should be correlated with mammographic findings. MG 3D Screening Mammo W/Cad Bilateral CC and MLO view(s) were taken. Prior study comparison: February 18, 2020, bilateral MG 3d screening mammo w/cad. February 15, 2019, bilateral MG 3d screening mammo w/cad. January 18, 2018, bilateral MG 3d screening mammo w/cad. The breast tissue is heterogeneously dense. This may lower the sensitivity of mammography. Finding: There are segmental calcifications in the lower inner quadrant, posterior position of the right breast 8cm from the nipple. This finding is changed when compared with previous exams. ASSESSMENT: Incomplete: need additional imaging evaluation, BI-RAD 0 RECOMMENDATION: Special view mammogram of the right breast. [facility] will attempt to contact patient to return for supplemental views.
== END | disposition home or self-care (01) ==
LOC: RADMAMWWP 15:08
PROVIDERS: ATTEND Obstetrics & Gynecology
DX: Z12.31 Encounter for screening mammogram for malignant neoplasm of breast (principal); Z78.0 Asymptomatic menopausal state; Z80.3 Family history of malignant neoplasm of breast
CPT/HCPCS: 77063; 77067

== ENCOUNTER → 2021-02-25 | Outpatient (CLI) | payer MEDICARE, BC ==
--- NOTE | 2021-02-25 10:25 | MM ---
Reason for exam: additional evaluation requested from prior study. Last mammogram was performed less than 1 month ago. History: Patient is postmenopausal and history of other cancer. Family history of breast cancer in paternal cousin at age 50. Benign stereotactic core biopsy of the right breast, August 25, 2003. Cyst aspiration of the left breast. Cyst aspiration of the right breast. Core biopsy of the right breast. Excisional biopsy of the left breast. Taking estrogen for 30 years beginning at age 42. Taking progesterone beginning at age 75. Physical Findings: Nurse did not find any significant physical abnormalities on exam. MG 3D Work Up W/Cad RT CC with magnification, LM with magnification, and LM view(s) were taken of the right breast. Prior study comparison: February 18, 2021, bilateral MG 3d screening mammo w/cad. February 18, 2020, bilateral MG 3d screening mammo w/cad. February 15, 2019, bilateral MG 3d screening mammo w/cad. January 18, 2018, bilateral MG 3d screening mammo w/cad. The breast tissue is heterogeneously dense. This may lower the sensitivity of mammography. Previous mammotome biopsy in the right breast. Some heterogeneous calcifications posterior 4 o'clock right breast appear similar to 2019 but increased from prior to that. Continued short interval follow up recommended. These results were verbally communicated with the patient and result sheet given to the patient on 02/25/21. ASSESSMENT: Probably benign, BI-RAD 3 RECOMMENDATION: Follow-up diagnostic mammogram of the right breast in 6 months.
== END | disposition home or self-care (01) ==
LOC: RADMAMWWP 08:52
PROVIDERS: ATTEND Obstetrics & Gynecology
DX: R92.1 Mammographic calcification found on diagnostic imaging of breast (principal); Z78.0 Asymptomatic menopausal state; Z85.9 Personal history of malignant neoplasm, unspecified; Z80.3 Family history of malignant neoplasm of breast
CPT/HCPCS: 77065; G0279; 77061

== ENCOUNTER → 2021-05-17 | Outpatient (CLI) | payer MEDICARE, BC ==
--- NOTE | 2021-05-17 12:38 | XR ---
EXAMINATION TYPE: XR abdomen 2V DATE OF EXAM: 05/17/2021 COMPARISON: 07/17/2020 INDICATION: Abdomen pain and history of bowel resection TECHNIQUE: Single view abdomen on supine view FINDINGS: There is a normal bowel gas pattern. Psoas margins are normal. No organomegaly is present. Surgical clips are within the mid abdomen right upper quadrant. Scoliosis within the lumbar spine. IMPRESSION: 1. Unremarkable Abdomen
[2021-05-17 22:03] LABS: ALT 20 U/L (8-44); AST 24 U/L (13-35); Amylase 61 U/L (23-121); Lipase 38 U/L (14-63)
== END | disposition home or self-care (01) ==
LOC: LABWHC1 11:49
PROVIDERS: ATTEND Internal Medicine
DX: R10.9 Unspecified abdominal pain (principal)
CPT/HCPCS: 36415; 74019; 82150; 83690; 84450; 84460; 85652

== ENCOUNTER → 2021-05-28 | Outpatient (CLI) | payer MEDICARE, BC ==
--- NOTE | 2021-05-28 14:35 | FL ---
EXAMINATION TYPE: FL barium swallow DATE OF EXAM: 05/28/2021 COMPARISON: NONE HISTORY: Hiatal hernia pain and stomach contrite healing TECHNIQUE: Single contrast technique due to patient's physical condition FINDINGS: Esophagus dilates to normal caliber has normal contour the gastroesophageal junction. Gastr oesophageal junction opens normal caliber. Multiple tertiary contractions were evident during the exa mination. There is incomplete emptying of the esophagus in the upright view with spasm at the gastroe sophageal junction.. There is near complete emptying in the horizontal drinking position. Fluoroscopy time 14 seconds. Number of images: 258 IMPRESSION: 1. Presbyesophagus. 2. Some gastroesophageal spasm may have been present with delayed emptying of the distal esophagus. T here is complete emptying however with horizontal drinking position.
== END | disposition home or self-care (01) ==
LOC: RADUSWWP 08:47
PROVIDERS: ATTEND Surgery Plastic and Reconstructive Surgery
DX: K22.89 Other specified disease of esophagus (principal); K22.4 Dyskinesia of esophagus
CPT/HCPCS: 74220

== ENCOUNTER 2021-06-07 09:49 | Day surgery (SDC) | payer MEDICARE, BC ==
[2021-06-03 15:27] VITALS: BMI 22.8
--- NOTE | 2021-06-07 08:39 | P.GSHP ---
History of Present Illness H&P Date: 06/07/21 CHIEF COMPLAINT: GERD HISTORY OF PRESENT ILLNESS: The patient is a 76-year-old female who presents reports gastroesophageal reflux disease. Upper endoscopy was offered for further evaluation and management. PAST MEDICAL HISTORY: Please see list. PAST SURGICAL HISTORY: Please see list. MEDICATIONS: Please see list. ALLERGIES: Please see list. SOCIAL HISTORY: No illicit drug use FAMILY HISTORY: No reports of Crohn disease or ulcerative colitis. REVIEW OF ORGAN SYSTEMS: CONSTITUTIONAL: No reports of fevers or chills. GI: Denies any blood in stools or constipation. PHYSICAL EXAM: VITAL SIGNS: Stable GENERAL: Well-developed and pleasant in no acute distress. HEENT: No scleral icterus. Extraocular movements grossly intact. Moist buccal mucosa. NECK: Supple without lymphadenopathy. CHEST: Unlabored respirations. Equal bilateral excursions. CARDIOVASCULAR: Regular rate and rhythm. Distal 2+ pulses. ABDOMEN: Soft, nondistended. MUSCULOSKELETAL: No clubbing, cyanosis, or edema. ASSESSMENT: 1. Gastroesophageal reflux disease PLAN: 1. Recommend proceeding with an upper endoscopy Past Medical History Past Medical History: Cancer, Deep Vein Thrombosis (DVT), GERD/Reflux, Hyperlipidemia, Osteoarthritis (OA), Thyroid Disorder Additional Past Medical History / Comment(s): having abdominal pain and dry heaves after eating, hx of small bowel obstruction, skin cancer on face. migraines, hiatal hernia, IBS History of Any Multi-Drug Resistant Organisms: None Reported Past Surgical History: Adenoidectomy, Appendectomy, Back Surgery, Bowel Rese ction, Cholecystectomy, Hysterectomy, Orthopedic Surgery, Tonsillectomy Additional Past Surgical History / Comment(s): partial thyroidectomy, rt foot plate and screws, rt knee arthroscopy x 2, DEVIATED nasal SEPTUM REPAIR, lysis of adhesions, removal of cancer from face, laminectomy/fusion Past Anesthesia/Blood Transfusion Reactions: Motion Sickness, Postoperative Nausea & Vomiting (PONV) Smoking Status: Former smoker - Past Family History Father Family Medical History: Cancer Additional Family Medical History / Comment(s): lung cancer Mother Family Medical History: Osteoarthritis (OA) Brother(s) Family Medical History: Cancer Medications and Allergies Home Medications Medication Instructions Recorded Confirmed Type Escitalopram Oxalate [Lexapro] 20 mg PO HS 11/17/17 06/03/21 History Montelukast [Singulair] 10 mg PO HS 11/17/17 06/03/21 History Gabapentin [Neurontin] 300 mg PO BID 08/27/18 06/03/21 History Cholecalciferol [Vitamin D3 (25 250 mcg PO DAILY 07/15/20 06/03/21 History Mcg = 1000 Iu)] Folic Acid 400 mcg PO DAILY 07/15/20 06/03/21 History Hydroxychloroquine Sulfate 300 mg PO DAILY 07/15/20 06/03/21 History [Plaquenil] Levothyroxine Sodium 25 mcg PO QAM 07/15/20 06/03/21 History Meloxicam [Mobic] 15 mg PO DAILY 08/04/20 06/03/21 History Carboxymethylcellulose Sodium 1 drop BOTH EYES DIRECTED 06/03/21 06/03/21 History [Refresh Tears] Estrogens, Conjugated [Premarin] 0.3 mg PO DAILY 06/03/21 06/03/21 History Allergies Allergy/AdvReac Type Severity Reaction Status Date / Time ciprofloxacin Allergy Rash/Hives Verified 06/03/21 15:09 grass pollen Allergy Dyspnea Verified 06/03/21 15:09 tree and shrub pollen Allergy Dyspnea Verified 06/03/21 15:09 shellfish derived [Shellfish] AdvReac Nausea & Verified 06/03/21 15:09 Vomiting
[2021-06-07 10:21] VITALS: TEMP 98.7
[2021-06-07] MEDS ORDERED: LACTATED RINGERS 1,000 ML IV ONE (10:21)
[2021-06-07] MEDS ORDERED: LIDOCAINE 1% (10MG/ML) FOR IV START INTRADERMA ONE (10:21)
[2021-06-07] MEDS ORDERED: LIDOCAINE 1% INJ 10MG/ML (20 ML MDV) ONE (11:01)
[2021-06-07] MEDS ORDERED: PROPOFOL 10 MG/ML 20 ML VIAL IV ONE (11:01)
--- NOTE | 2021-06-07 11:23 | P.PCN ---
Date of Procedure: 06/07/21 Description of Procedure: PREOPERATIVE DIAGNOSIS: Gastroesophageal reflux disease Epigastric abdominal pain Dysphagia POSTOPERATIVE DIAGNOSIS: Distal esophageal stenosis Chronic gastritis Acute duodenal ulcer without bleeding OPERATION: Esophagogastroduodenoscopy with rigid dilator over the guidewire 51 Fr with dilation Esophagogastroduodenoscopy with cold forceps biopsies stomach/antrum SURGEON: Alysha Gallo MD ANESTHESIA: MAC. INDICATIONS: The patient is a 50-year-old male who presents with a history of gastroesophageal reflux disease with abdominal pain. Benefits and risks of the procedure were described. Informed consent was obtained. DESCRIPTION: The patient was brought into the endoscopy suite and laid in the left lateral decubitus position. After a timeout was confirmed, the procedure was initiated. An Olympus gastroscope was passed into the posterior oropharynx where an upper esophageal stenosis was identified. The scope was passed down to the distal esophagus. To address the lower esophageal stenosis, rigid dilator over guidewire was selected. Next using an Egyptian rigid dilator, a guidewire was placed through the gastroscope. Next the scope was withdrawn. A 51-Citizen [place] rigid Egyptian dilator was passed carefully along the posterior oropharynx to 45 cm and left in place for 2-3 minutes stretch. The dilator was withdrawn including the guidewire. The scope was reentered along the posterior oropharynx with no findings of full- thickness tear of the upper esophageal sphincter. Additional findings below. Within the stomach, acute gastritis with duodenal ulceration 5 cm identified at the second portion of the duodenum was found. Cold forceps biopsies obtained Of the antrum. The lower esophageal valve was evaluated with Hill grade 2 lower esophageal valve. LA grade A erosive esophagitis was identified. No full-thickness injury was encountered. The GI tract was desufflated. The patient tolerated the procedure well. FINDINGS: Upper esophageal stenosis dilated 51-Citizen [place] rigid dilator Diaphragmatic hiatus at 40 cm from the incisors Squamocolumnar junction 39 cm from the incisors. Gastritis along the gastric body and fundus cold forceps biopsies obtained Acute duodenal ulceration 5 cm identified at the second portion LA grade A erosive esophagitis Hill grade 2 lower esophageal valve. RECOMMENDATIONS: Omeprazole 40 mg daily Repeat upper endoscopy 4 to 6 weeks Discontinue NSAIDs for 2-4 weeks Plan - Discharge Summary Discharge Rx Participant: No New Discharge Prescriptions: New Omeprazole [PriLOSEC] 40 mg PO DAILY #30 cap Continue Escitalopram Oxalate [Lexapro] 20 mg PO HS Montelukast [Singulair] 10 mg PO HS Gabapentin [Neurontin] 300 mg PO BID Cholecalciferol [Vitamin D3 (25 Mcg = 1000 Iu)] 250 mcg PO DAILY Folic Acid 400 mcg PO DAILY Hydroxychloroquine Sulfate [Plaquenil] 300 mg PO DAILY Levothyroxine Sodium 25 mcg PO QAM Estrogens, Conjugated [Premarin] 0.3 mg PO DAILY Carboxymethylcellulose Sodium [Refresh Tears] 1 drop BOTH EYES DIRECTED Discontinued Meloxicam [Mobic] 15 mg PO DAILY Discharge Medication List Escitalopram Oxalate [Lexapro] 20 mg PO HS 11/17/17 [History] Montelukast [Singulair] 10 mg PO HS 11/17/17 [History] Gabapentin [Neurontin] 300 mg PO BID 08/27/18 [History] Cholecalciferol [Vitamin D3 (25 Mcg = 1000 Iu)] 250 mcg PO DAILY 07/15/20 [History] Folic Acid 400 mcg PO DAILY 07/15/20 [History] Hydroxychloroquine Sulfate [Plaquenil] 300 mg PO DAILY 07/15/20 [History] Levothyroxine Sodium 25 mcg PO QAM 07/15/20 [History] Carboxymethylcellulose Sodium [Refresh Tears] 1 drop BOTH EYES DIRECTED 06/03/21 [History] Estrogens, Conjugated [Premarin] 0.3 mg PO DAILY 06/03/21 [History] Omeprazole [PriLOSEC] 40 mg PO DAILY #30 cap 06/07/21 [Rx] Follow up Appointment(s)/Referral(s): Alysha Gallo MD [STAFF PHYSICIAN] - 06/22/21 Patient Instructions/Handouts: Peptic Ulcer (DC), Esophageal Dilation (DC) Activity/Diet/Wound Care/Special Instructions: Avoid MOBIC, ASPIRIN, ALEVE, IBUPROFEN AND NSAIDS Discharge Disposition: HOME SELF-CARE
[2021-06-07 12:03] VITALS: BP 150/82; PULSE 71; RESP 16
== END 2021-06-07 12:30 | disposition home or self-care (01) ==
LOC: ORWHC2ENDO 09:49
PROVIDERS: ATTEND Surgery Plastic and Reconstructive Surgery
DX: K22.2 Esophageal obstruction (principal); K31.9 Disease of stomach and duodenum, unspecified; K29.50 Unspecified chronic gastritis without bleeding; K26.3 Acute duodenal ulcer without hemorrhage or perforation; K22.10 Ulcer of esophagus without bleeding; K21.9 Gastro-esophageal reflux disease without esophagitis; E78.5 Hyperlipidemia, unspecified; Z86.718 Personal history of other venous thrombosis and embolism; Z85.828 Personal history of other malignant neoplasm of skin; G43.109 Migraine with aura, not intractable, without status migrainosus; G43.909 Migraine, unspecified, not intractable, without status migrainosus; K58.9 Irritable bowel syndrome, unspecified; Z90.49 Acquired absence of other specified parts of digestive tract; Z90.710 Acquired absence of both cervix and uterus; Z98.890 Other specified postprocedural states; E89.0 Postprocedural hypothyroidism; Z87.891 Personal history of nicotine dependence; Z80.1 Family history of malignant neoplasm of trachea, bronchus and lung; Z82.61 Family history of arthritis; Z80.9 Family history of malignant neoplasm, unspecified; Z79.890 Hormone replacement therapy; Z79.899 Other long term (current) drug therapy; Z88.1 Allergy status to other antibiotic agents; Z91.013 Allergy to seafood; Z91.09 Other allergy status, other than to drugs and biological substances
CPT/HCPCS: 88305; 43239; 43248; J2001; J2704; 43249

== ENCOUNTER → 2021-06-15 | Outpatient (CLI) | payer MEDICARE, BC ==
--- NOTE | 2021-06-15 13:43 | CT ---
EXAMINATION TYPE: CT cervical spine wo con DATE OF EXAM: 06/15/2021 COMPARISON: None HISTORY: 76-year-old female M54.2, Cervicalgia TECHNIQUE: Contiguous axial scanning of the cervical spine without IV contrast. Coronal and sagittal reconstructions performed. CT DLP: 296 mGycm Automated exposure control for dose reduction was used. FINDINGS: The upper lungs show biapical pleural-parenchymal scarring. Very heterogeneous and small thyroid glan d. Consider diffuse thyroiditis or chronic hypothyroidism. Reversal of the normal cervical lordosis. Hypertrophic facet and uncovertebral joint arthropathy thro ughout. Trace degenerative grade 1 anterolisthesis C7-T1. There is moderate to severe disc/endplate degenerative change C4-C7 levels. Scattered mild ligamentum flavum thickening. Disc osteophyte complexes mildly narrow the spinal canal at C4-C5 and C5-C6, possibly more moderate a t C6-C7 though assessment of the spinal canal is limited due to artifact from the patient's shoulders at this level. No acute fracture of the cervical spine. At C3-C4, changes result in moderate to severe right neural foraminal stenosis. At C4-C5, mild right neuroforaminal stenosis. At C5-C6 and C6-C7, mild bilateral neural foraminal stenosis. IMPRESSION: 1. REVERSAL OF THE NORMAL CERVICAL LORDOSIS AND A DEGENERATIVE GRADE 1 ANTEROLISTHESIS AT C7-T1. 2. MODERATE TO ADVANCED DISC AND ENDPLATE DEGENERATIVE CHANGE FROM C4 THROUGH C7 LEVELS AND MULTILEVE L FACET AND UNCOVERTEBRAL JOINT ARTHROPATHY. 3. MILD NARROWING OF THE SPINAL CANAL AT C4-C5 AND C5-C6, POSSIBLY MORE MODERATE AT C6-C7. 4. VARIABLE MILD NEURAL FORAMINAL STENOSES OUTLINED ABOVE, MORE MODERATE TO SEVERE ON THE RIGHT AT C3-C4.
== END | disposition home or self-care (01) ==
LOC: RADCTMAIN 13:05
PROVIDERS: ATTEND Internal Medicine
DX: M43.13 Spondylolisthesis, cervicothoracic region (principal); M47.812 Spondylosis without myelopathy or radiculopathy, cervical region; M99.71 Connective tissue and disc stenosis of intervertebral foramina of cervical region; M48.02 Spinal stenosis, cervical region
CPT/HCPCS: 72125

== ENCOUNTER → 2021-07-01 | Outpatient (CLI) | payer BC, MEDICARE | END | disposition home or self-care (01) | LOC: LABPAT 06:58 | PROVIDERS: ATTEND Surgery Plastic and Reconstructive Surgery | DX: Z20.822 Contact with and (suspected) exposure to COVID-19 (principal) | CPT/HCPCS: U0003; C9803; U0005 ==

== ENCOUNTER → 2021-07-08 | Outpatient (CLI) | payer MEDICARE, BC | END | disposition home or self-care (01) | LOC: LABPAT 07:06 | PROVIDERS: ATTEND Surgery Plastic and Reconstructive Surgery | DX: Z01.812 Encounter for preprocedural laboratory examination (principal); Z20.822 Contact with and (suspected) exposure to COVID-19 | CPT/HCPCS: U0003; C9803; U0005 ==

== ENCOUNTER 2021-07-12 06:56 | Day surgery (SDC) | payer MEDICARE, BC ==
[2021-07-06 15:43] VITALS: BMI 22.4
[~2021-07-12 06:56] MED LIST changes: -CHLORHEXIDINE GLUCONATE 15 ML CUP MUCOUS MEM PRN; -DEXAMETHASONE SOD PHOSPHATE 4 MG/ML 1 ML VIAL IV ONE; -HEPARIN SODIUM,PORCINE/PF 5,000 UNIT/0.5 ML SYRINGE SQ PRN; -HYDROmorphone 0.5 MG/0.5 ML SYRINGE IVP PRN; +LIDOCAINE 1% (10MG/ML) FOR IV START INTRADERMA PRN; -ONDANSETRON 4 MG/2 ML VIAL IVP ONE; -PANTOPRAZOLE 40 MG/10 ML VIAL IVP PRN; -ceFAZolin 3 GM in SODIUM CHLORIDE 0.9% 100 ML IVPB PRN
[2021-07-12 07:26] VITALS: TEMP 97.9
[2021-07-12] MEDS ORDERED: LACTATED RINGERS 1,000 ML IV ONE (07:33)
[2021-07-12] MEDS ORDERED: PROPOFOL 10 MG/ML 20 ML VIAL IV ONE (08:02)
[2021-07-12] MEDS ORDERED: LIDOCAINE 1% INJ 10MG/ML (20 ML MDV) ONE (08:02)
--- NOTE | 2021-07-12 08:05 | P.GSHP ---
History of Present Illness H&P Date: 07/12/21 CHIEF COMPLAINT: Gastric ulcer HISTORY OF PRESENT ILLNESS: The patient is a 76-year-old female who presents reports gastric ulcer. Upper endoscopy was offered for further evaluation and management. PAST MEDICAL HISTORY: Please see list. PAST SURGICAL HISTORY: Please see list. MEDICATIONS: Please see list. ALLERGIES: Please see list. SOCIAL HISTORY: No illicit drug use FAMILY HISTORY: No reports of Crohn disease or ulcerative colitis. REVIEW OF ORGAN SYSTEMS: CONSTITUTIONAL: No reports of fevers or chills. GI: Denies any blood in stools or constipation. PHYSICAL EXAM: VITAL SIGNS: Stable GENERAL: Well-developed and pleasant in no acute distress. HEENT: No scleral icterus. Extraocular movements grossly intact. Moist buccal mucosa. NECK: Supple without lymphadenopathy. CHEST: Unlabored respirations. Equal bilateral excursions. CARDIOVASCULAR: Regular rate and rhythm. Distal 2+ pulses. ABDOMEN: Soft, nondistended. MUSCULOSKELETAL: No clubbing, cyanosis, or edema. ASSESSMENT: 1. Gastric ulcer PLAN: 1. Recommend proceeding with an upper endoscopy Past Medical History Past Medical History: Cancer, Deep Vein Thrombosis (DVT), GERD/Reflux, Hyperlipidemia, Osteoarthritis (OA), Thyroid Disorder Additional Past Medical History / Comment(s): having abdominal pain and dry heaves after eating, hx of small bowel obstruction, skin cancer on face. migraines, hiatal hernia, IBS History of Any Multi-Drug Resistant Organisms: None Reported Past Surgical History: Adenoidectomy, Appendectomy, Back Surgery, Bowel Resection, Cholecystectomy, Hysterectomy, Orthopedic Surgery, Tonsillectomy Additional Past Surgical History / Comment(s): partial thyroidectomy, rt foot plate and screws, rt knee arthroscopy x 2, DEVIATED nasal SEPTUM REPAIR, lysis of adhesions, removal of cancer from face, laminectomy/fusion Past Anesthesia/Blood Transfusion Reactions: Motion Sickness, Postoperative Nausea & Vomiting (PONV) Smoking Status: Former smoker - Past Family History Father Family Medical History: Cancer Additional Family Medical History / Comment(s): lung cancer Mother Family Medical History: Osteoarthritis (OA) Brother(s) Family Medical History: Cancer Medications and Allergies Home Medications Medication Instructions Recorded Confirmed Type Escitalopram Oxalate [Lexapro] 20 mg PO HS 11/17/17 07/06/21 History Montelukast [Singulair] 10 mg PO HS 11/17/17 07/06/21 History Gabapentin [Neurontin] 300 mg PO BID 08/27/18 07/06/21 History Cholecalciferol [Vitamin D3 (25 250 mcg PO DAILY 07/15/20 07/06/21 History Mcg = 1000 Iu)] Levothyroxine Sodium 25 mcg PO QAM 07/15/20 07/06/21 History Carboxymethylcellulose Sodium 1 drop BOTH EYES DIRECTED 06/03/21 07/06/21 History [Refresh Tears] Omeprazole [PriLOSEC] 40 mg PO HS 07/02/21 07/06/21 History Sucralfate [Carafate] 1 gm PO TID 07/06/21 07/06/21 History Allergies Allergy/AdvReac Type Severity Reaction Status Date / Time ciprofloxacin Allergy Rash/Hives Verified 07/06/21 15:36 grass pollen Allergy Dyspnea Verified 07/06/21 15:36 tree and shrub pollen Allergy Dyspnea Verified 07/06/21 15:36 shellfish derived [Shellfish] AdvReac Nausea & Verified 07/06/21 15:36 Vomiting Surgical - Exam Vital Signs Temp Pulse Resp BP Pulse Ox 97.9 F 71 18 111/55 98 07/12/21 07:25 07/12/21 07:25 07/12/21 07:25 07/12/21 07:25 07/12/21 07:25
[2021-07-12] MEDS ORDERED: IV FLUID CONTINUATION 1,000 ML IV ONE (08:15)
[2021-07-12 08:22] VITALS: PULSE 60
[2021-07-12 08:30] VITALS: BP 113/84; RESP 16
--- NOTE | 2021-07-12 08:42 | P.PCN ---
Date of Procedure: 07/12/21 Description of Procedure: PREOPERATIVE DIAGNOSIS: History of large duodenal ulcer Rheumatoid arthritis POSTOPERATIVE DIAGNOSIS: History of large duodenal ulcer Rheumatoid arthritis OPERATION: Esophagogastroduodenoscopy SURGEON: Alysha Gallo MD ANESTHESIA: MAC. INDICATIONS: The patient is a 76-year-old female who presents with history of large duodenal ulcer. Benefits and risks of the procedure were described. Informed consent was obtained. DESCRIPTION: The patient was brought into the endoscopy suite and laid in the left lateral decubitus position. An Olympus gastroscope was passed along the posterior oropharynx down to the distal esophagus where the squamocolumnar junction was encountered and unremarkable. The stomach was entered and no bile reflux was found. Additional findings are listed below. The first through third portion of the duodenum was examined and unremarkablefor residual ulceration or stricture. The squamocolumnar junction demonstrated LA grade A erosive esophagitis. The stomach was desufflated. The patient tolerated the procedure well. FINDINGS: Hill grade 1 lower esophageal valve. LA grade A erosive esophagitis. Resolved large 1 cm duodenal ulcer RECOMMENDATIONS: Upper endoscopy as needed. Continued Carafate and omeprazole for prophylaxis against NSAID induced ulcerations May resume arthritic medications Plan - Discharge Summary Discharge Rx Participant: No New Discharge Prescriptions: New Sucralfate [Carafate] 1 gm PO BID #120 tablet Continue Escitalopram Oxalate [Lexapro] 20 mg PO HS Montelukast [Singulair] 10 mg PO HS Gabapentin [Neurontin] 300 mg PO BID Cholecalciferol [Vitamin D3 (25 Mcg = 1000 Iu)] 250 mcg PO DAILY Levothyroxine Sodium 25 mcg PO QAM Carboxymethylcellulose Sodium [Refresh Tears] 1 drop BOTH EYES DIRECTED Omeprazole [PriLOSEC] 40 mg PO HS Discontinued Sucralfate [Carafate] 1 gm PO TID Discharge Medication List Escitalopram Oxalate [Lexapro] 20 mg PO HS 11/17/17 [History] Montelukast [Singulair] 10 mg PO HS 11/17/17 [History] Gabapentin [Neurontin] 300 mg PO BID 08/27/18 [History] Cholecalciferol [Vitamin D3 (25 Mcg = 1000 Iu)] 250 mcg PO DAILY 07/15/20 [History] Levothyroxine Sodium 25 mcg PO QAM 07/15/20 [History] Carboxymethylcellulose Sodium [Refresh Tears] 1 drop BOTH EYES DIRECTED 06/03/21 [History] Omeprazole [PriLOSEC] 40 mg PO HS 07/02/21 [History] Sucralfate [Carafate] 1 gm PO BID #120 tablet 07/12/21 [Rx] Follow up Appointment(s)/Referral(s): Alysha Gallo MD [STAFF PHYSICIAN] - As Needed Patient Instructions/Handouts: *[facility] - (Anesthesia) Endoscopy Discharge Instructions, Upper Endoscopy (DC) Activity/Diet/Wound Care/Special Instructions: Diet as tolerated. May resume medications for arthritis. Discharge Disposition: HOME SELF-CARE
== END 2021-07-12 08:55 | disposition home or self-care (01) ==
LOC: ORWHC2ENDO 06:56
PROVIDERS: ATTEND Surgery Plastic and Reconstructive Surgery
DX: K22.10 Ulcer of esophagus without bleeding (principal); K21.00 Gastro-esophageal reflux disease with esophagitis, without bleeding; M06.9 Rheumatoid arthritis, unspecified; E07.9 Disorder of thyroid, unspecified; F32.A Depression, unspecified; Z90.49 Acquired absence of other specified parts of digestive tract; Z98.890 Other specified postprocedural states; Z79.890 Hormone replacement therapy; Z79.899 Other long term (current) drug therapy
CPT/HCPCS: 43235; J2001; J2704

== ENCOUNTER → 2021-07-23 | Outpatient (CLI) | payer MEDICARE, BC ==
[2021-07-23 15:24] LABS: Basophils # (A) 0.01 X 10*3/uL (0.00-0.10); Basophils % (A) 0.1 %; Eosinophils % (A) 2.8 %; HCT 37.3 % (37.2-46.3); HGB 12.6 g/dL (12.0-15.0); Lymphocytes # (A) 0.31 X 10*3/uL (0.90-5.00); Lymphocytes % (A) 4.3 %; MCH 32.8 pg (27.0-32.0); MCHC 33.8 g/dL (32.0-37.0); MCV 97.1 fL (80.0-97.0); Mean Platelet Volume 10.7 fL (9.5-12.2); Monocytes # (A) 0.44 X 10*3/uL (0.20-1.00); Monocytes % (A) 6.1 %; Neutrophils # (A) 6.17 X 10*3/uL (1.80-7.70); Neutrophils % (A) 86.1 %; Platelet Count 193 X 10*3/uL (140-440); RBC 3.84 X 10*6/uL (4.10-5.20); RDW 12.5 % (11.5-14.5); WBC 7.17 X 10*3/uL (4.50-10.00)
[2021-07-23 15:28] LABS: Albumin 3.8 g/dL (3.8-4.9); Albumin/Globulin Ratio 1.52 (1.60-3.17); Anion Gap 13.6 mmol/L (10.00-18.00); BUN/Creat Ratio 16.1 Ratio (12.00-20.00); Blood Urea Nitrogen 13.2 mg/dL (9.0-27.0); Calcium 8.9 mg/dL (8.7-10.3); Carbon Dioxide 21.1 mmol/L (20.0-27.5); Globulin 2.5 g/dL (1.6-3.3); Potassium 3.6 mmol/L (3.5-5.5); Total Bilirubin 0.5 mg/dL (0.30-1.20); Total Protein 6.3 g/dL (6.2-8.2)
== END | disposition home or self-care (01) ==
LOC: LABWHC1 10:05
PROVIDERS: ATTEND Internal Medicine
DX: M19.90 Unspecified osteoarthritis, unspecified site (principal)
CPT/HCPCS: 36415; 80053; 85025

== ENCOUNTER → 2021-08-26 | Outpatient (CLI) | payer MEDICARE, BC ==
--- NOTE | 2021-08-26 11:43 | MM ---
Reason for exam: follow-up at short interval from prior study. Last mammogram was performed 6 months ago. History: Patient is postmenopausal and history of other cancer. Family history of breast cancer in paternal cousin at age 50. Benign stereotactic core biopsy of the right breast, August 25, 2003. Cyst aspiration of the left breast. Cyst aspiration of the right breast. Core biopsy of the right breast. Excisional biopsy of the left breast. Took estrogen for 30 years beginning at age 42. Took progesterone beginning at age 75. Physical Findings: A clinical breast exam by your physician is recommended on an annual basis and results should be correlated with mammographic findings. MG 3D Diag Mammo W/Cad RT CC and MLO view(s) were taken of the right breast. Prior study comparison: February 25, 2021, right breast MG 3d work up w/cad RT. February 18, 2021, bilateral MG 3d screening mammo w/cad. The breast tissue is heterogeneously dense. This may lower the sensitivity of mammography. Benign appearing calcifications in the right breast. Asymmetric breast tissue. These results were verbally communicated with the patient and result sheet given to the patient on 08/26/21. ASSESSMENT: Probably benign, BI-RAD 3 RECOMMENDATION: Follow-up diagnostic mammogram of both breasts in 6 months. Back on schedule.
== END | disposition home or self-care (01) ==
LOC: RADMAMWWP 10:45
PROVIDERS: ATTEND Obstetrics & Gynecology
DX: R92.8 Other abnormal and inconclusive findings on diagnostic imaging of breast (principal); Z78.0 Asymptomatic menopausal state; Z80.3 Family history of malignant neoplasm of breast
CPT/HCPCS: 77065; G0279; 77061

== ENCOUNTER → 2021-11-17 | Outpatient (CLI) | payer MEDICARE, BC ==
--- NOTE | 2021-11-18 06:29 | US ---
EXAMINATION TYPE: US kidneys/renal and bladder DATE OF EXAM: 11/17/2021 COMPARISON: CT July 15, 2020 CLINICAL HISTORY: N18.30 CHRONIC KIDNEY DISEASE, STAGE 3. Rt Flank Pain, abnormal labs EXAM MEASUREMENTS: Right Kidney: 9.5 x 3.8 x 4.5 cm Left Kidney: 10.1 x 5.0 x 5.0 cm Right Kidney: Dilatation noted in ureter area chidi. .8cm Left Kidney: ? mild pelvic prominence noted Bladder: wnl Bilateral Jets seen: No, RT jet not seen on today's exam Prominence of right renal pelvis and proximal ureter without significant calyceal dilatation. Left s ramon shows mild to moderate hydronephrosis. No concerning masses are identified on images obtained. T he urinary bladder is anechoic. Bilateral ureteral jets are seen. IMPRESSION: New Mild to moderate left-sided hydronephrosis present. Follow-up advised.
== END | disposition home or self-care (01) ==
LOC: RADUSWWP 15:29
PROVIDERS: ATTEND Internal Medicine
DX: N13.30 Unspecified hydronephrosis (principal)
CPT/HCPCS: 76770

== ENCOUNTER → 2021-12-15 | Outpatient (CLI) | payer MEDICARE ==
[2021-12-15 08:54] LABS: African American GFR (CKD) >90 (>60 ml/min/1.73 sqM); Blood Urea Nitrogen 21 mg/dL (7-17); Non-African American GFR(CKD) 83 (>60 ml/min/1.73 sqM)
--- NOTE | 2021-12-15 12:28 | CT ---
EXAMINATION TYPE: CT urogram wo/w con DATE OF EXAM: 12/15/2021 INDICATION: Hydronephrosis CT DLP: 1840 mGy.cm Automated Exposure Control for Dose Reduction was Utilized. TECHNIQUE AND CONTRAST: CT scan of the abdomen and pelvis is performed without and with IV Contrast, as per CT urogram protoc ol. The patient injected with 100 mL of Isovue 300. 3-D reconstruction images were generated on an in dependent workstation and reviewed. COMPARISON: CT dated 07/15/2020 FINDINGS: No radiodense urinary calculi. No significant hydroureter or hydronephrosis. No definite suspicious r enal lesion identified. Slightly prominent left renal collecting system and left ureter, mild strictu re at the inferior aspect of the left ureter cannot be excluded. Questionable mild wall thickening of the inferior aspect of the right ureter. Wall thickening on the right side of the urinary bladder, n onspecific. Underlying lesion cannot be excluded. No gross ureteric lesion otherwise. Previous hyster ectomy. No gross adnexal mass. Previous cholecystectomy. Segment 4 hepatic cyst, otherwise unremarkable liver. Unremarkable spleen, pancreas and adrenals. Scattered arterial atherosclerotic calcifications. Unremarkable stomach and du odenum. No evidence of small bowel obstruction. Moderate fecal loading of the colon. Wall thickening of the distal aspect of the transverse colon and ascending colon. Recommend correlati on with colonoscopy results. No suspicious lymphadenopathy or sizable ascites. Unremarkable lung base s. Previous lower lumbar spinal surgery with apparent chronic collection and marginal calcification o pposite L3 down to S1 level. Marked degenerative changes of the lumbar spine. IMPRESSION: Wall thickening of the right side of the urinary bladder as described above, underlying neoplastic le sakshi cannot be excluded. Recommend correlation with urinalysis results including cytology. Nonspecific mild wall thickening of the inferior aspects of the ureters with questionable mild strict ure on the left side. No definite suspicious renal or ureteric lesion otherwise. Other findings and recommendations as described above.
== END | disposition home or self-care (01) ==
LOC: RADCTMAIN 07:58
PROVIDERS: ATTEND Urology
DX: N85.8 Other specified noninflammatory disorders of uterus (principal)
CPT/HCPCS: 82565; 84520; 74178; 36415; 74400; Q9967

== ENCOUNTER 2021-12-22 08:18 | Day surgery (SDC) | payer MEDICARE ==
[2021-12-17 09:10] VITALS: BMI 24.1
--- NOTE | 2021-12-22 05:59 | P.GSHP ---
History of Present Illness H&P Date: 12/22/21 CHIEF COMPLAINT: GERD HISTORY OF PRESENT ILLNESS: The patient is a 76-year-old female who presents reports gastroesophageal reflux disease. Upper endoscopy was offered for further evaluation and management. PAST MEDICAL HISTORY: Please see list. PAST SURGICAL HISTORY: Please see list. MEDICATIONS: Please see list. ALLERGIES: Please see list. SOCIAL HISTORY: No illicit drug use FAMILY HISTORY: No reports of Crohn disease or ulcerative colitis. REVIEW OF ORGAN SYSTEMS: CONSTITUTIONAL: No reports of fevers or chills. GI: Denies any blood in stools or constipation. PHYSICAL EXAM: VITAL SIGNS: Stable GENERAL: Well-developed and pleasant in no acute distress. HEENT: No scleral icterus. Extraocular movements grossly intact. Moist buccal mucosa. NECK: Supple without lymphadenopathy. CHEST: Unlabored respirations. Equal bilateral excursions. CARDIOVASCULAR: Regular rate and rhythm. Distal 2+ pulses. ABDOMEN: Soft, nondistended. MUSCULOSKELETAL: No clubbing, cyanosis, or edema. ASSESSMENT: 1. Gastroesophageal reflux disease PLAN: 1. Recommend proceeding with an upper endoscopy Past Medical History Past Medical History: Cancer, Deep Vein Thrombosis (DVT), GERD/Reflux, Hyperlipidemia, Osteoarthritis (OA), Rheumatoid Arthritis (RA), Thyroid Disorder Additional Past Medical History / Comment(s): having abdominal pain and dry heaves after eating, hx of small bowel obstruction, skin cancer on face. migraines, hiatal hernia, IBS. DIFFICULTY WALKING AT TIMES-WAITING TO HAVE LT KNEE REPLACED History of Any Multi-Drug Resistant Organisms: None Reported Past Surgical History: Adenoidectomy, Appendectomy, Back Surgery, Bowel Resection, Cholecystectomy, Hysterectomy, Orthopedic Surgery, Tonsillectomy Additional Past Surgical History / Comment(s): partial thyroidectomy, rt foot plate and screws, rt knee arthroscopy x 2, DEVIATED nasal SEPTUM REPAIR, lysis of adhesions, removal of cancer from face, laminectomy/fusion, EGD, COLONOSCOPY Past Anesthesia/Blood Transfusion Reactions: Motion Sickness, Postoperative Nausea & Vomiting (PONV) Smoking Status: Former smoker - Past Family History Father Family Medical History: Cancer Additional Family Medical History / Comment(s): lung cancer Mother Family Medical History: Osteoarthritis (OA) Brother(s) Family Medical History: Cancer Additional Family Medical History / Comment(s): 2 BROTHERS HAD CANCER Medications and Allergies Home Medications Medication Instructions Recorded Confirmed Type Escitalopram Oxalate [Lexapro] 20 mg PO HS 11/17/17 12/17/21 History Montelukast [Singulair] 10 mg PO HS 11/17/17 12/17/21 History Gabapentin [Neurontin] 300 mg PO BID 08/27/18 12/17/21 History Levothyroxine Sodium 25 mcg PO QAM 07/15/20 12/17/21 History Carboxymethylcellulose Sodium 1 drop BOTH EYES DIRECTED 06/03/21 12/17/21 History [Refresh Tears] Omeprazole [PriLOSEC] 40 mg PO HS 07/02/21 12/17/21 History Sucralfate [Carafate] 1 gm PO BID #120 tablet 07/12/21 12/17/21 Rx Allergies Allergy/AdvReac Type Severity Reaction Status Date / Time ciprofloxacin Allergy Rash/Hives Verified 12/17/21 09:02 grass pollen Allergy Dyspnea Verified 12/17/21 09:02 tree and shrub pollen Allergy Dyspnea Verified 12/17/21 09:02 shellfish derived [Shellfish] AdvReac Nausea & Verified 12/17/21 09:02 Vomiting
[~2021-12-22 08:18] MED LIST changes: -LIDOCAINE 1% (10MG/ML) FOR IV START INTRADERMA PRN
[2021-12-22 08:47] VITALS: TEMP 97.5
[2021-12-22] MEDS ORDERED: LIDOCAINE 2% INJ 20 MG/ML (2 ML VIAL) ONE (09:07)
[2021-12-22] MEDS ORDERED: PROPOFOL 10 MG/ML 20 ML VIAL IV ONE (09:07)
--- NOTE | 2021-12-22 09:25 | P.PCN ---
Date of Procedure: 12/22/21 Description of Procedure: PREOPERATIVE DIAGNOSIS: History of gastric ulcers with bleeding Chronic NSAID use POSTOPERATIVE DIAGNOSIS: Gastritis History of gastric ulcers with bleeding Chronic NSAID use OPERATION: Esophagogastroduodenoscopy with biopsies along antrum and duodenal SURGEON: Alysha Gallo MD ANESTHESIA: MAC. INDICATIONS: The patient is a 76-year-old female who presents with abdominal pain and history of gastric ulcers. Benefits and risks of the procedure were described. Informed consent was obtained. DESCRIPTION: The patient was brought into the endoscopy suite and laid in the left lateral decubitus position. An Olympus gastroscope was passed along the posterior oropharynx down to the distal esophagus where the squamocolumnar junction was encountered at 35 cm from the incisors. The stomach was entered and no bile reflux was found. Additional findings are listed below. Biopsies with cold forceps were obtained of the antrum. The first through third portion of the duodenum was examined. Retroflexion of the scope confirmed Hill grade 1 lower esophageal valve. The squamocolumnar junction demonstrated LA grade A erosive esophagitis. The stomach was desufflated. The patient tolerated the procedure well. FINDINGS: Squamocolumnar junction 35 cm from the incisors. Diaphragmatic hiatus at 35 cm. Hill grade 1 lower esophageal valve. LA grade A erosive esophagitis. No active duodenitis. Chronic gastritis RECOMMENDATIONS: Upper endoscopy as needed. May use carafate and omeprazole as needed Plan - Discharge Summary Discharge Rx Participant: No New Discharge Prescriptions: Continue Escitalopram Oxalate [Lexapro] 20 mg PO HS Montelukast [Singulair] 10 mg PO HS Gabapentin [Neurontin] 300 mg PO BID Levothyroxine Sodium 25 mcg PO QAM Sucralfate [Carafate] 1 gm PO BID #120 tablet Carboxymethylcellulose Sodium [Refresh Tears] 1 drop BOTH EYES DIRECTED Omeprazole [PriLOSEC] 40 mg PO HS Discharge Medication List Escitalopram Oxalate [Lexapro] 20 mg PO HS 11/17/17 [History] Montelukast [Singulair] 10 mg PO HS 11/17/17 [History] Gabapentin [Neurontin] 300 mg PO BID 08/27/18 [History] Levothyroxine Sodium 25 mcg PO QAM 07/15/20 [History] Carboxymethylcellulose Sodium [Refresh Tears] 1 drop BOTH EYES DIRECTED 06/03/21 [History] Omeprazole [PriLOSEC] 40 mg PO HS 07/02/21 [History] Sucralfate [Carafate] 1 gm PO BID #120 tablet 07/12/21 [Rx] Follow up Appointment(s)/Referral(s): Alysha Gallo MD [STAFF PHYSICIAN] - As Needed Patient Instructions/Handouts: Gastritis (DC), Diet for Stomach Ulcers and Gastritis (ED) Discharge Disposition: HOME SELF-CARE
[2021-12-22 09:50] VITALS: BP 151/70; PULSE 65; RESP 18
== END 2021-12-22 10:15 | disposition home or self-care (01) ==
LOC: ORWHC2ENDO 08:18
PROVIDERS: ATTEND Surgery Plastic and Reconstructive Surgery
DX: K29.50 Unspecified chronic gastritis without bleeding (principal); K21.00 Gastro-esophageal reflux disease with esophagitis, without bleeding; K44.9 Diaphragmatic hernia without obstruction or gangrene; Z87.11 Personal history of peptic ulcer disease; Z79.1 Long term (current) use of non-steroidal anti-inflammatories (NSAID); E78.5 Hyperlipidemia, unspecified; Z86.718 Personal history of other venous thrombosis and embolism; M06.9 Rheumatoid arthritis, unspecified; M19.90 Unspecified osteoarthritis, unspecified site; E07.9 Disorder of thyroid, unspecified; Z87.19 Personal history of other diseases of the digestive system; Z85.828 Personal history of other malignant neoplasm of skin; Z90.49 Acquired absence of other specified parts of digestive tract; Z87.891 Personal history of nicotine dependence; Z80.1 Family history of malignant neoplasm of trachea, bronchus and lung; Z82.61 Family history of arthritis; Z79.899 Other long term (current) drug therapy; Z79.890 Hormone replacement therapy; Z88.3 Allergy status to other anti-infective agents; Z91.013 Allergy to seafood; Z91.09 Other allergy status, other than to drugs and biological substances
CPT/HCPCS: 88305; 43239; J2704; J2001

== ENCOUNTER → 2022-01-05 | Outpatient (CLI) | payer MEDICARE ==
[2022-01-06 03:03] LABS: ALT 19 U/L (8-44); AST 23 U/L (13-35); African American GFR (CKD) 99.1 (60.0-200.0); Albumin 4.4 g/dL (3.8-4.9); Albumin/Globulin Ratio 1.82 (1.60-3.17); Alkaline Phosphatase 57 U/L (41-126); BUN/Creat Ratio 29.97 Ratio (12.00-20.00); Blood Urea Nitrogen 19.6 mg/dL (9.0-27.0); C Reactive Protein <0.30 mg/dL (0.00-0.80); Calcium 9.7 mg/dL (8.7-10.3); Carbon Dioxide 23.4 mmol/L (20.0-27.5); Chloride 103 mmol/L (96-109); Globulin 2.4 g/dL (1.6-3.3); Glucose 92 mg/dL (70-110); Non-African American GFR(CKD) 85.5 (60.0-200.0); Phosphorus 3.7 mg/dL (2.4-5.1); Potassium 4.2 mmol/L (3.5-5.5); Sodium 138 mmol/L (135-145); Total Protein 6.8 g/dL (6.2-8.2); Uric Acid 4.5 mg/dL (2.9-7.7)
== END | disposition home or self-care (01) ==
LOC: LABWHC1 11:39
PROVIDERS: ATTEND Internal Medicine
DX: E55.9 Vitamin D deficiency, unspecified (principal); D64.9 Anemia, unspecified; M81.0 Age-related osteoporosis without current pathological fracture; M06.9 Rheumatoid arthritis, unspecified; N18.30 Chronic kidney disease, stage 3 unspecified
CPT/HCPCS: 36415; 80053; 83970; 84100; 84439; 84443; 84550; 85652; 86140

== ENCOUNTER → 2022-02-14 | Outpatient (CLI) | payer MEDICARE ==
[2022-02-14 18:20] LABS: HCT 39.6 % (37.2-46.3); MCH 33.1 pg (27.0-32.0); MCHC 32.8 g/dL (32.0-37.0); MCV 100.8 fL (80.0-97.0); Mean Platelet Volume 11.3 fL (9.5-12.2); NRBC Per 100 WBC 0 /100 WBCS (0.0-0.0); Platelet Count 274 X 10*3/uL (140-440); RBC 3.93 X 10*6/uL (4.10-5.20); RDW 13.2 % (11.5-14.5); WBC 5.58 X 10*3/uL (4.50-10.00)
== END | disposition home or self-care (01) ==
LOC: LABWHC1 11:22
PROVIDERS: ATTEND Orthopaedic Surgery
DX: M17.12 Unilateral primary osteoarthritis, left knee (principal)
CPT/HCPCS: 36415; 85027

== ENCOUNTER → 2022-03-01 | Outpatient (CLI) | payer MEDICARE ==
[2022-03-01 14:51] LABS: Basophils # (A) 0.07 X 10*3/uL (0.00-0.10); Basophils % (A) 0.9 %; Eosinophils % (A) 3.9 %; HCT 35.5 % (37.2-46.3); HGB 11.4 g/dL (12.0-15.0); Immature Grans, Automated 0.5 %; Lymphocytes # (A) 1.11 X 10*3/uL (0.90-5.00); Lymphocytes % (A) 14.3 %; MCH 32.9 pg (27.0-32.0); MCHC 32.1 g/dL (32.0-37.0); MCV 102.3 fL (80.0-97.0); Mean Platelet Volume 10.5 fL (9.5-12.2); Monocytes # (A) 0.49 X 10*3/uL (0.20-1.00); Monocytes % (A) 6.3 %; NRBC Per 100 WBC 0 /100 WBCS (0.0-0.0); Neutrophils # (A) 5.77 X 10*3/uL (1.80-7.70); Neutrophils % (A) 74.1 %; Platelet Count 451 X 10*3/uL (140-440); RBC 3.47 X 10*6/uL (4.10-5.20); RDW 12.7 % (11.5-14.5); WBC 7.78 X 10*3/uL (4.50-10.00)
[2022-03-01 15:19] LABS: African American GFR (CKD) 98.7 (60.0-200.0); Anion Gap 12.1 mmol/L (10.00-18.00); BUN/Creat Ratio 24.32 Ratio (12.00-20.00); Blood Urea Nitrogen 16.1 mg/dL (9.0-27.0); Calcium 9.9 mg/dL (8.7-10.3); Carbon Dioxide 25.2 mmol/L (20.0-27.5); Non-African American GFR(CKD) 85.1 (60.0-200.0); Potassium 5.4 mmol/L (3.5-5.5)
== END | disposition home or self-care (01) ==
LOC: LABWHC1 09:34
PROVIDERS: ATTEND Internal Medicine
DX: Z00.00 Encounter for general adult medical examination without abnormal findings (principal)
CPT/HCPCS: 36415; 80048; 85025

== ENCOUNTER → 2022-03-28 | Outpatient (CLI) | payer MEDICARE ==
--- NOTE | 2022-03-28 15:16 | MM ---
Reason for Exam: Follow-up at short interval from prior study. Last mammogram was performed 1 year(s) and 1 month(s) ago. Patient History: Menarche at age 10. First Full-Term at age 25. Hysterectomy at age 41. Postmenopausal. Other cancer. Estrogen, starting at age 42 for 30 years. Progesterone, starting at age 75. Cyst Aspiration on the Right side. Cyst Aspiration on the Left side. Core Biopsy on the Right side. Excisional Biopsy on the Left side. 08/25/2003, Benign Stereotactic Core Biopsy on the right side. Paternal cousin had breast cancer, age 50. Risk Values: Sloane 5 year model risk: 3.2%. NCI Lifetime model risk: 6.1%. Prior Study Comparison: 01/18/2018 Bilateral Screening Mammogram, [facility]. 02/15/2019 Bilateral Screening Mammogram, [facility]. 02/18/2020 Bilateral Screening Mammogram, [facility]. 02/18/2021 Bilateral Screening Mammogram, [facility]. 02/25/2021 Right Diagnostic Mammogram, [facility]. 08/26/2021 Right Diagnostic Mammogram, [facility]. Tissue Density: The breast tissue is heterogeneously dense. This may lower the sensitivity of mammography. Findings: Analyzed By CAD. Benign vascular calcifications within both breasts. Biopsy clip within the right breast. No new suspicious worrisome cluster marked calcifications or new suspicious mass within either breast. No significant change from prior exams. Overall Assessment: Benign, BI-RAD 2 Management: Screening Mammogram of both breasts in 1 year. A clinical breast exam by your physician is recommended on an annual basis and results should be correlated with mammographic findings. This exam should not preclude additional follow-up of suspicious palpable abnormalities. Results were given to the patient verbally at the time of exam. Electronically signed and approved by: Roge Hernandez D.O.
--- NOTE | 2022-03-29 12:21 | BD ---
EXAMINATION TYPE: Axial Bone Density DATE OF EXAM: 03/28/2022 COMPARISON: NONE CLINICAL HISTORY: 76 years year old Female. ICD-10 CODE: N95.1 MENOPAUSAL AND FEMALE Height: 5 FT 2 IN Weight: 134 FRAX RISK QUESTIONS: Alcohol (3 or more units per day): NO Family History (Parent hip fracture): NO Glucocorticoids (More than 3mos): NO (Ex: prednisone, prednisolone, methylprednisolone, dexamethasone, and hydrocortisone). History of Fracture in Adulthood: NO Secondary Osteoporosis: 1. Type 1 Diabetes: NO 2. Hyperthyroidism:THYROID REMOVED 3. Menopause before 45: NO 4. Malnutrition: NO 5. Chronic liver disease: NO Rheumatoid Arthritis: YES Current Tobacco Use: NO RISK FACTORS HISTORY OF: Surgery to Spine/Hip(right/left)/Wrist (right/left): LUMBAR SURG When: 15 YEARS AGO HARDWARE REMOVED APPROX 9 YEARS AGO Family History of Osteoporosis: NO Active: YES Diet low in dairy products/other sources of calcium: NO Postmenopausal woman: YES Take estrogen and/or progesterone medications: TOOK HRT FOR 30 YEARS NONE NOW Lost more than 2 inches in height since high school: YES Frequent falls: NO Poor Health: GOOD Hyperparathyroidism: NO Adrenal Insufficiency: NO MEDICATIONS: Thyroid Medications: YES Which medication: LEVOTHYROXINE How Lon 1/2 YEARS Additional Medications: IBUPROFEN, LEVOTHYROXINE, GABAPENTIN, SLEEPING AIDES Additional History: EXAM MEASUREMENTS: Bone mineral density about the R hip (g/cm2): 1.015 Bone mineral density about the L hip (g/cm2): 0.954 T Score values are as follows: -----R Neck: -0.2 -----L Neck: -0.6 -----R Total: -0.3 -----L Total: -0.3 Bone mineral density has: DECREASED -9.1 % since study of: 2017 Bone mineral density about the L Wrist (g/cm2): 0.623 T Score values are as follows: -----Dist. R+U: 0.1 -----Prox. R+U: -1.1 -----Radius total: -0.8 WRIST HAS NOT BEEN DONE BEFORE FRAX%s: The graph provided illustrates a 12.6 % chance for a major osteoporotic fx and a 2.0 % chance for the hips probability for fx in 10 years time. IMPRESSION: Osteopenia (T Score between -2.5 and -1). There is slightly increased risk of fracture and the patient may be considered for treatment. Re-Screen 2-5 years. NOTE: T-SCORE=SD OF THE YOUNG ADULT MEAN.
== END | disposition home or self-care (01) ==
LOC: RADMAMWWP 14:49
PROVIDERS: ATTEND Obstetrics & Gynecology
DX: N95.1 Menopausal and female climacteric states (principal); R92.8 Other abnormal and inconclusive findings on diagnostic imaging of breast
CPT/HCPCS: 77080; 77066; G0279; 77062

== ENCOUNTER 2022-09-28 06:41 | Day surgery (SDC) | payer MEDICARE ==
[2022-09-28] MEDS ORDERED: LACTATED RINGERS 1,000 ML IV ONE (06:51)
[2022-09-28 07:15] VITALS: TEMP 97.3
[2022-09-28] MEDS ORDERED: PROPOFOL 10 MG/ML 20 ML VIAL IV ONE (07:48)
--- NOTE | 2022-09-28 08:07 | P.PCN ---
Date of Procedure: 09/28/22 Procedure(s) Performed: Brief history: Patient is a pleasant 77-year-old white female scheduled for an elective upper endoscopy as well as colonoscopy as a part of evaluation of intermittent dysphagia to solids and chronic diarrhea for the last 2 months duration. She has history of Porfirio fundoplication done several years ago and has occasional dysphagia to certain foods but no choking episodes. She had an upper GI small bowel series obesity that revealed evidence of esophageal dysmotility. She also has been having chronic diarrhea with bowel movements daily from 6-8 a day which are loose to watery in consistency but no blood or mucus in the stool. Procedure performed: Esophagogastroduodenoscopy with biopsy Colonoscopy with biopsy Preoperative diagnosis: Intermittent dysphagia to solids Chronic Diarrhea of 2 months duration Anesthesia: MAC Procedure: After informed consent was obtained from the patient was brought into the endoscopy unit and IV sedation was administered by anesthesia under continuous monitoring. Initially upper endoscopy was done. The Olympus GF 160 video endoscope was inserted inserted into the mouth and esophagus intubated without any difficulty and was gradually advanced into the stomach and duodenum and carefully examined. The bulb and second part of the duodenum appeared normal. The scope was then withdrawn into the stomach adequately insufflated with air and upon careful examination the antrum had erosions and biopsies were done from this area. Mucosa of the body, cardia and fundus appeared normal. The scope was then withdrawn into the esophagus. The GE junction was located at 40 cm to the incisors. It appeared regular with no erythema erosions or ulcerations. Rest of the esophagus appeared normal. There was no evidence of esophagitis or esophageal stricture. No hiatal hernia noted. Patient tolerated the procedure well. At this time the patient continued to remain sedation. Initial digital rectal examination was normal. Olympus CF 160 video colonoscope was then inserted into the rectum and gradually advanced to the cecum without any difficulty. Careful examination was performed as the scope was gradually being withdrawn. The prep was excellent. The cecum, appeared normal. In the ascending colon there was a 2 mm polyp that was removed by cold biopsy. ascending colon, transverse colon, descending colon, sigmoid colon and rectum appeared normal. Random biopsies were done from ascending and descending colon to rule out metastatic/collagenous colitis. Scattered sigmoid diverticulosis seen. Retroflexion was performed in the rectum and no lesions were noted. Patient tolerated the procedure well. Impression: 1. Upper endoscopy revealed mild antral gastritis but no evidence of esophagitis or esophageal stricture 2. Colonoscopy revealed 2 mm ascending colon polyp status post cold biopsy and sigmoid diverticulosis Recommendations: Findings of this examination were discussed with the patient as well a her family. She was advised to follow with the biopsy results. She'll be seen in office in 2-3 weeks.
[2022-09-28 08:13] VITALS: RESP 16
[2022-09-28 08:34] VITALS: BP 142/80; PULSE 61
== END 2022-09-28 09:06 | disposition home or self-care (01) ==
LOC: ORWHC2ENDO 06:41
PROVIDERS: ATTEND Internal Medicine Gastroenterology
DX: D12.2 Benign neoplasm of ascending colon (principal); K57.30 Diverticulosis of large intestine without perforation or abscess without bleeding; K29.50 Unspecified chronic gastritis without bleeding; I10 Essential (primary) hypertension; Z88.5 Allergy status to narcotic agent; Z79.899 Other long term (current) drug therapy
CPT/HCPCS: 88305; 45380; 43239; J2704

== ENCOUNTER → 2023-03-29 | Outpatient (CLI) | payer BC ==
--- NOTE | 2023-03-30 10:53 | MM ---
Reason for Exam: Screening (asymptomatic). Last screening mammogram was performed 12 month(s) ago. Patient History: Menarche at age 10. First Full-Term at age 25. Hysterectomy at age 41. Postmenopausal. Other cancer. Estrogen, starting at age 42 for 30 years. Progesterone, starting at age 75. Cyst Aspiration on the Right side. Cyst Aspiration on the Left side. Core Biopsy on the Right side. Excisional Biopsy on the Left side. 08/25/2003, Benign Stereotactic Core Biopsy on the right side. Paternal cousin had breast cancer, age 50. Risk Values: Sloane 5 year model risk: 3.1%. NCI Lifetime model risk: 5.6%. Prior Study Comparison: 02/25/2021 Right Diagnostic Mammogram, [facility]. 08/26/2021 Right Diagnostic Mammogram, [facility]. 03/28/2022 Bilateral MG 3D diag mammo w/cad KIM, [facility]. Tissue Density: The breast tissue is heterogeneously dense. This may lower the sensitivity of mammography. Findings: Analyzed By CAD. There is no suspicious group of microcalcifications or new suspicious mass in either breast. Overall Assessment: Benign, BI-RAD 2 Management: Screening Mammogram of both breasts in 1 year. . Patient should continue monthly self-breast exams. A clinical breast exam by your physician is recommended on an annual basis. This exam should not preclude additional follow-up of suspicious palpable abnormalities. Note on Sloane scores and lifetime risk: 1. A Sloane score greater than 3% is considered moderate risk. If this is the case, consider specialist referral to assess eligibility for a risk reducing agent. 2. If overall lifetime risk for the development of breast cancer is 20% or higher, the patient may qualify for future screening with alternating mammogram and breast MRI. Electronically signed and approved by: Tin Forbes M.D. Radiologis
== END | disposition home or self-care (01) ==
LOC: RADMAMWWP 07:18
PROVIDERS: ATTEND Obstetrics & Gynecology
DX: Z12.31 Encounter for screening mammogram for malignant neoplasm of breast (principal); Z78.0 Asymptomatic menopausal state; Z80.3 Family history of malignant neoplasm of breast
CPT/HCPCS: 77063; 77067

== ENCOUNTER → 2023-09-15 | Outpatient (CLI) | payer MEDICARE ==
--- NOTE | 2023-09-15 13:23 | US ---
EXAMINATION TYPE: US thyroid st tissue head/neck DATE OF EXAM: 09/15/2023 COMPARISON: NONE CLINICAL INDICATION: Female, 78 years old with history of E04.1 NONTOXIC SINGLE THYROID NODULE; pt. h ad majority of thyroid removed 50 yrs prior, now has low thyroid levels GLAND SIZE: Right Lobe: 2.9x1.2x1.0 cm Overall Parenchyma: heterogeneous Left Lobe: 2.3x1.3x1.3 cm Overall Parenchyma: heterogeneous Isthmus Thickness: 0.3 cm NODULES RIGHT: # of nodules measured on right: 0 LEFT: # of nodules measured on left: 1 1. 0.6 X 0.5 x 0.4 cm, mid mid, solid or almost completely solid, isoechoic nodule, which is wider than tall, with ill-defined margins, without echogenic foci. ISTHMUS: # of nodules measured in the isthmus: 0 Bilateral neck scanned, no evidence of lymphadenopathy. IMPRESSION: 1. Subcentimeter nodule left lobe thyroid. 2. No suspicious nodules this time 2016 ACR TI-RADS LEVEL: TR-RADS 1 - BENIGN: No FNA *Highest TI-RADS level nodule reported
== END | disposition home or self-care (01) ==
LOC: RADUSWWP 12:17
PROVIDERS: ATTEND Internal Medicine Endocrinology, Diabetes & Metabolism
DX: E04.1 Nontoxic single thyroid nodule (principal)
CPT/HCPCS: 76536

== ENCOUNTER 2024-03-27 09:25 | Day surgery (SDC) | payer MEDICARE ==
[~2024-03-27 09:25] MED LIST changes: +LIDOCAINE 1% (10MG/ML) FOR IV START INTRADERMA PRN
[2024-03-27] MEDS: IV FLUID CONTINUATION 1,000 ML IV ONE (10:10)
[2024-03-27 10:39] LABS: Glucose,Whole Blood 87 mg/dL (70-110)
[2024-03-27 10:43] VITALS: RESP 16; TEMP 97.8
[2024-03-27] MEDS ORDERED: PROPOFOL 10 MG/ML 20 ML VIAL IV ONE (11:23)
--- NOTE | 2024-03-27 11:33 | P.PCN ---
Date of Procedure: 03/27/24 Procedure(s) Performed: BRIEF HISTORY: Patient is a 78-year-old, pleasant, white female skilled follow- up anoscopy as a part of evaluation of intermittent dysphagia to solids for the last several months duration. She has these episodes with solids every 2 to 3 weeks and results. Denies any any heartburn.. PROCEDURE PERFORMED: Esophagogastroduodenoscopy with dilation. PREOPERATIVE DIAGNOSIS: Intermittent dysphagia to solids for the last 6 months duration. IV sedation per anesthesia. PROCEDURE: After informed consent was obtained, the patient was brought into the endoscopy unit. IV sedation was administered by Anesthesia under continuous monitoring. Initially the Olympus GIF-140 video endoscope was inserted into the mouth. Esophagus intubated without any difficulty. It was gradually advanced into the stomach and duodenum and carefully examined. The bulb and the second part of the duodenum appeared normal. The scope at this time was withdrawn to the stomach, adequately insufflated with air, and upon careful examination, mucosa of the antrum, body, cardia and the fundus appeared normal. The scope was then withdrawn into the esophagus. The GE junction was located at 39 cm from the incisors. Small hiatal hernia noted. There was a distal esophageal widely patent Schatzki's ring identified that was dilated using 20 mm TTS balloon for 30 seconds. There with 2 superficial erosions at the GE junction consistent with LA grade B reflux esophagitis. Rest of esophagus appeared normal and the patient tolerated the procedure well. IMPRESSION: 1. Distal esophageal Schatzki's ring status post balloon dilation using 20 mm TTS balloon as described above. 2. Small hiatal hernia 3. Linear erosions in the distal esophagus consistent with LA grade B reflux esophagitis. RECOMMENDATIONS: The findings of this examination were discussed with the patient as well as her family. She was advised to be on clinicals for 2 hours. Started on Prilosec 20 mg daily and follow antireflux measures. Follow-up in the office in 3 to 4 weeks..
[2024-03-27 11:42] VITALS: BP 143/78; PULSE 73
== END 2024-03-27 12:25 | disposition home or self-care (01) ==
LOC: ORWHC2ENDO 09:25
PROVIDERS: ATTEND Internal Medicine Gastroenterology
CPT/HCPCS: 43249

== ENCOUNTER → 2024-04-25 | Outpatient (CLI) | payer MEDICARE ==
--- NOTE | 2024-04-29 08:44 | MM ---
Reason for Exam: Screening (asymptomatic). Last mammogram was performed 1 year(s) and 1 month(s) ago. Patient History: Menarche at age 10. First Full-Term at age 25. Hysterectomy at age 41. Postmenopausal. Estrogen, starting at age 42 for 30 years. Progesterone, starting at age 75. Cyst Aspiration on the Right side. Cyst Aspiration on the Left side. Core Biopsy on the Right side. Excisional Biopsy on the Left side. 08/25/2003, Benign Stereotactic Core Biopsy on the right side. Paternal cousin had breast cancer, age 50. Risk Values: Sloane 5 year model risk: 3.0%. NCI Lifetime model risk: 4.6%. Prior Study Comparison: 08/26/2021 Right Diagnostic Mammogram, [facility]. 03/28/2022 Bilateral MG 3D diag mammo w/cad KIM, [facility]. 03/29/2023 Bilateral MG 3D screening mammo w/cad, [facility]. Tissue Density: There are scattered areas of fibroglandular density. Findings: Analyzed By CAD. Right breast: There is no suspicious group of microcalcifications or new suspicious mass. Left breast: There is no suspicious group of microcalcifications or new suspicious mass. Overall Assessment: Negative, BI-RAD 1 Management: Screening Mammogram of both breasts in [address] [facility] will attempt to contact patient to return for supplemental views and ultrasound if indicated. Patient should continue monthly self-breast exams. A clinical breast exam by your physician is recommended on an annual basis. This exam should not preclude additional follow-up of suspicious palpable abnormalities. Note on Sloane scores and lifetime risk: 1. A Sloane score greater than 3% is considered moderate risk. If this is the case, consider specialist referral to assess eligibility for a risk reducing agent. 2. If overall lifetime risk for the development of breast cancer is 20% or higher, the patient may qualify for future screening with alternating mammogram and breast MRI. [facility], , 04/29/2024 8:40 AM. Electronically signed and approved by: Otto Reyes DO
== END | disposition home or self-care (01) ==
LOC: RADMAMWWP 13:52
PROVIDERS: ATTEND Internal Medicine
DX: Z12.31 Encounter for screening mammogram for malignant neoplasm of breast (principal); R92.323 Mammographic fibroglandular density, bilateral breasts; Z78.0 Asymptomatic menopausal state; Z80.3 Family history of malignant neoplasm of breast
CPT/HCPCS: 77063; 77067

== ENCOUNTER → 2024-09-16 | Outpatient (CLI) | payer MEDICARE ==
--- NOTE | 2024-09-17 07:21 | BD ---
EXAMINATION TYPE: Axial Bone Density DATE OF EXAM: 09/16/2024 CLINICAL HISTORY: 79 years old Female. ICD-10 CODE: Z13.820 ENCOUNTER FOR SCREENING FOR OSTEOPOROSIS , Additional History: Height: 62 Weight: 137.9 FRAX RISK QUESTIONS: Alcohol (3 or more units per day): no Family History (Parent hip fracture): no Glucocorticoids (More than 3mos): no (Ex: prednisone, prednisolone, methylprednisolone, dexamethasone, and hydrocortisone). History of Fracture in Adulthood: no Secondary Osteoporosis: 1. Type 1 Diabetes: no 2. Hyperthyroidism: previously, removed 3/4 of thyroid 3. Menopause before 45: yes 4. Malnutrition: no 5. Chronic liver disease: no Rheumatoid Arthritis: no Current Tobacco Use: no RISK FACTORS HISTORY OF: Hip Fracture (Right/Left): no Spine Fracture: no History of Wrist Fracture: no Surgery to Spine/Hip(right/left)/Wrist (right/left): yes fusion When: 2009 MEDICATIONS: Thyroid Medications: UniThyroid How Long: past 5 years Osteoporosis Medications: no EXAM MEASUREMENTS: Bone mineral density about the R hip (g/cm2):0.957 Bone mineral density about the L hip (g/cm2): 0.958 T Score values are as follows: -----R Neck: 0.1 -----L Neck: -0.4 -----R Total: -0.4 -----L Total: -0.4 Z Score values are as follows: -----R Neck: 2.3 -----L Neck: 1.8 -----R Total: 1.7 -----L Total: 1.7 Bone mineral density has: decreased -1.5 % since study of: 03/28/2022 Bone mineral density about the L Wrist (g/cm2)0.583: T Score values are as follows: -----Dist. R+U: -0.5 -----Prox. R+U: -1.2 -----Radius total: -1.5 Z Score values are as follows: -----Dist. R+U: 2.3 -----Prox. R+U: 1.6 -----Radius total: 1.25 Bone mineral density has: decreased -0.1 % since study of: 03/28/2022 FRAX%s: The graph provided illustrates a 10.0% chance for a major osteoporotic fx and a 1.6% chance f or the hips probability for fx in 10 years time. IMPRESSION: Osteopenia (T Score between -2.5 and -1). There is slightly increased risk of fracture and the patient may be considered for treatment. Re-Screen 2-5 years. NOTE: T-SCORE=SD OF THE YOUNG ADULT MEAN. [facility], , 09/17/2024 7:18 AM
== END | disposition home or self-care (01) ==
LOC: RADBDWWP 15:12
PROVIDERS: ATTEND Internal Medicine Endocrinology, Diabetes & Metabolism
DX: Z13.820 Encounter for screening for osteoporosis (principal); M85.88 Other specified disorders of bone density and structure, other site; Z78.0 Asymptomatic menopausal state
CPT/HCPCS: 77080